=== PATIENT | female | born 1955 | race American Indian/Alaskan Native ===

== ENCOUNTER 2017-11-24 12:08 | Emergency (ER) | payer MEDICARE, MEDICAID, OTHER ==
[~2017-11-24] VITALS: Ht 152.4 cm; Wt 73.0 kg
[~2017-11-24 12:08] MED LIST: ASPI-611 PO; CLON-527 PO; DOXY150T3 PO; ERGO500014 PO; ESOM40CA PO; HYDR-565 PO; HYDR-569 PO; IBUP-1985 PO; INSU100C4 SQ; LANTUS SUBCUT; LEVO75TA PO; METF-436 PO; METO-292 PO; NAPR-1144 PO; ONDA4TAB12 PO; ONDA4TAB6 PO; PREG200C PO; QUET-1 PO; ROPI1TAB2 PO; SITA1TAB6 PO
[2017-11-24 14:54] LABS: BASOPHILS # (AUTO) 0.1 X10'3 (0-0.2); BASOPHILS % (AUTO) 0.8 % (0-1); EOSINOPHILS # (AUTO) 0.5 X10'3 (0-0.9); EOSINOPHILS % (AUTO) 5.1 % (0-6); HEMATOCRIT 40.9 % (35.0-45.0); HEMOGLOBIN 13.6 g/dl (12.0-16.0); LYMPHOCYTES # (AUTO) 3.2 X10'3 (1.1-4.8); LYMPHOCYTES % (AUTO) 34.1 % (21-51); MEAN CORPUSCULAR HEMOGLOBIN 29.6 PG (27.0-31.0); MEAN CORPUSCULAR HGB CONC 33.4 % (33.0-36.5); MEAN CORPUSCULAR VOLUME 88.6 FL (78-98); MEAN PLATELET VOLUME 9.8 FL (7.4-10.4); MONOCYTES # (AUTO) 0.6 X10'3 (0-0.9); MONOCYTES % (AUTO) 6.6 % (2-12); NEUTROPHILS % (AUTO) 53.4 % (42-75); PLATELET COUNT 255 X10'3 (140-440); RED BLOOD COUNT 4.62 X10'6 (4.20-5.60); RED CELL DISTRIBUTION WIDTH 14.8 % (11.5-14.5); WHITE BLOOD COUNT 9.3 X10'3 (4.5-11.0)
[2017-11-24 15:13] LABS: ALANINE AMINOTRANSFERASE 70 U/L (12-78); ALBUMIN/GLOBULIN RATIO 0.6 (1.1-1.5); ALKALINE PHOSPHATASE 454 IU/L (46-116); ANION GAP 7 (8-16); ASPARTATE AMINO TRANSFERASE 84 U/L (10-37); BILIRUBIN,TOTAL 0.4 MG/DL (0.1-1.0); BLOOD UREA NITROGEN 21 MG/DL (7-18); BUN/CREATININE RATIO 18.9 (6.6-38.0); CALCIUM 9.2 MG/DL (8.5-10.1); CHLORIDE 108 MMOL/L (99-107); CREATININE 1.11 MG/DL (0.40-0.90); GLUCOSE 70 MG/DL (70-104); POTASSIUM 4.9 MMOL/L (3.5-5.1); SODIUM 143 MMOL/L (135-145); TOTAL CARBON DIOXIDE 27.6 MMOL/L (24-32); TOTAL PROTEIN 7.9 G/DL (6.4-8.2); eGFR 50 ML/MIN
[2017-11-24 17:12] VITALS: BP 166/79
[2017-11-24] MEDS ORDERED: HYDROcodone/acetaminophen 10/325mg tab PO ONE (17:15)
[2017-11-24] MEDS ORDERED: MUPI1OIN8 BOTHNARES (17:21)
[2017-11-24 17:33] LABS: CLARITY,URINE CLEAR (Clear); COLOR,URINE YELLOW (Yellow); GLUCOSE, URINE 100 mg/dl (Neg); KETONES,URINE TRACE mg/dl (Neg); LEUKOCYTE ESTERASE ,URINE NEGATIVE (Neg); NITRITES, URINE NEGATIVE (Neg); OCCULT BLOOD,URINE NEGATIVE (Neg); PROTEIN,URINE 100 mg/dl (Neg)
[2017-11-24 17:34] LABS: UA COLLECTION TYPE CLN CATCH MIDSTREAM
[2017-11-24 17:54] LABS: BACTERIA,URINE FEW /HPF (Neg); HYALINE CASTS 0-3 /LPF (NEGATIVE); MUCUS STRANDS MODERATE /LPF (Neg); RBC,URINE 0-2 /HPF (0-2); SQUAMOUS EPITHELIAL CELL,UR MODERATE /LPF (FEW); WBC,URINE 0-4 /HPF (0-4); YEAST FEW /HPF (NEGATIVE)
== END 2017-11-24 18:05 | disposition home or self-care (01) ==
LOC: ER 12:08
DX: L02.215 Cutaneous abscess of perineum (principal); E11.42 Type 2 diabetes mellitus with diabetic polyneuropathy; G89.29 Other chronic pain; Z86.14 Personal history of Methicillin resistant Staphylococcus aureus infection; E78.00 Pure hypercholesterolemia, unspecified; K21.9 Gastro-esophageal reflux disease without esophagitis; Z90.49 Acquired absence of other specified parts of digestive tract; Z79.84 Long term (current) use of oral hypoglycemic drugs; Z79.4 Long term (current) use of insulin; Z79.899 Other long term (current) drug therapy; Z88.5 Allergy status to narcotic agent; Z88.8 Allergy status to other drugs, medicaments and biological substances; Z60.2 Problems related to living alone; Z56.0 Unemployment, unspecified
CPT/HCPCS: 36415; 56405; 73660; 80053; 81001; 82948; 85025; 99285

== ENCOUNTER 2018-01-17 15:15 | Observation (INO) | payer MEDICARE, MEDICAID, OTHER ==
[~2018-01-17] VITALS: Ht 154.9 cm; Wt 75.0 kg
[~2018-01-17 15:15] MED LIST changes: +MUPI1OIN8 BOTHNARES
[2018-01-17 15:41] LABS: BASOPHILS % (AUTO) 0.4 % (0-1); EOSINOPHILS # (AUTO) 0.4 X10'3 (0-0.9); EOSINOPHILS % (AUTO) 4.5 % (0-6); HEMATOCRIT 42.4 % (35.0-45.0); LYMPHOCYTES # (AUTO) 2.8 X10'3 (1.1-4.8); LYMPHOCYTES % (AUTO) 32.6 % (21-51); MEAN CORPUSCULAR HEMOGLOBIN 29.6 PG (27.0-31.0); MEAN CORPUSCULAR VOLUME 89.7 FL (78-98); MEAN PLATELET VOLUME 9.4 FL (7.4-10.4); MONOCYTES # (AUTO) 0.5 X10'3 (0-0.9); MONOCYTES % (AUTO) 5.9 % (2-12); NEUTROPHILS # (AUTO) 4.8 X10'3 (1.8-7.7); NEUTROPHILS % (AUTO) 56.6 % (42-75); PLATELET COUNT 220 X10'3 (140-440); RED BLOOD COUNT 4.73 X10'6 (4.20-5.60); RED CELL DISTRIBUTION WIDTH 14.4 % (11.5-14.5); WHITE BLOOD COUNT 8.5 X10'3 (4.5-11.0)
[2018-01-17 15:52] LABS: INR 0.9 INR; PARTIAL THROMBOPLASTIN TIME 27 SECONDS (22-32); PROTHROMBIN TIME 9.8 SECONDS (9.0-12.0)
[2018-01-17 16:02] LABS: ALANINE AMINOTRANSFERASE 62 U/L (12-78); BLOOD UREA NITROGEN 12 MG/DL (7-18); BUN/CREATININE RATIO 12.1 (6.6-38.0); CALCIUM 8.7 MG/DL (8.5-10.1); CREATININE 0.99 MG/DL (0.40-0.90); GLUCOSE 111 MG/DL (70-104); TROPONIN I < 0.04 NG/ML (0.0-0.05); eGFR 57 ML/MIN
[2018-01-17 16:03] LABS: ALBUMIN/GLOBULIN RATIO 0.7 (1.1-1.5); ALKALINE PHOSPHATASE 383 IU/L (46-116); ANION GAP 10 (8-16); ASPARTATE AMINO TRANSFERASE 78 U/L (10-37); BILIRUBIN,TOTAL 0.4 MG/DL (0.1-1.0); CHLORIDE 104 MMOL/L (99-107); SODIUM 140 MMOL/L (135-145); TOTAL CARBON DIOXIDE 25.8 MMOL/L (24-32); TOTAL PROTEIN 7.6 G/DL (6.4-8.2)
[2018-01-17] MEDS ORDERED: ondansetron/PF 4mg/2ml inj IV PRN (17:55)
[2018-01-17] MEDS ORDERED: aspirin 81mg tab.chew PO SCH (17:55)
[2018-01-17] MEDS ORDERED: aspirin 81mg tab.chew PO ONE (17:55)
[2018-01-17] MEDS ORDERED: bisacodyl 10mg suppository rectal RC PRN (17:55)
[2018-01-17 18:28] LABS: CHOL/HDL RATIO 6.3 (0.00-4.99); CHOLESTEROL 250 MG/DL (0-200); HDL CHOLESTEROL 40 MG/DL (35-60); LDL CHOLESTEROL 159 MG/DL (50-100); TRIGLYCERIDES 235 MG/DL (20-135)
[2018-01-17] MEDS: sodium chloride 0.45% 1,000 ML IV SCH (18:39)
[2018-01-17] MEDS: HYDROcodone/acetaminophen 5mg/325mg tablet PO PRN (19:51)
[2018-01-17] MEDS: docusate sod 100mg capsule PO SCH (20:11)
[2018-01-17] MEDS ORDERED: glucagon, human recombinant 1mg kit SUBCUT PRN (20:35)
[2018-01-17] MEDS ORDERED: dextrose 50%-water 50ml dispensing syringe IV PRN ×2 (20:35)
[2018-01-17] MEDS ORDERED: insulin Lispro (HumaLOG) vial - multi-dose SQ SCH (20:35)
[2018-01-17] MEDS ORDERED: dextrose ORAL solution 15 GM/59 ML bottle PO PRN ×2 (20:35)
[2018-01-17] MEDS ORDERED: MESSAGE TO PHARMACY PO ONE (20:35)
[2018-01-17] MEDS ORDERED: iohexol 350MG/ML 100ml bottle IV ONE (20:50)
[2018-01-17 21:22] VITALS: BP 160/79
[2018-01-17 22:00] VITALS: BP 160/79
[2018-01-17] MEDS ORDERED: ROPINIRole 1mg tablet PO SCH (23:10)
[2018-01-17] MEDS ORDERED: pregabalin 75mg capsule PO SCH (23:15)
[2018-01-17] MEDS ORDERED: quetiapine 100mg tablet PO SCH (23:15)
[2018-01-18 02:00] VITALS: BP 133/56
[2018-01-18] MEDS: HYDROcodone/acetaminophen 5mg/325mg tablet PO PRN (02:15)
[2018-01-18 06:00] VITALS: BP 101/56
[2018-01-18 06:14] LABS: ALANINE AMINOTRANSFERASE 57 U/L (12-78); ALBUMIN 2.7 G/DL (3.4-5.0); ALBUMIN/GLOBULIN RATIO 0.6 (1.1-1.5); ALKALINE PHOSPHATASE 337 IU/L (46-116); ANION GAP 4 (8-16); ASPARTATE AMINO TRANSFERASE 62 U/L (10-37); BILIRUBIN,TOTAL 0.3 MG/DL (0.1-1.0); BLOOD UREA NITROGEN 14 MG/DL (7-18); BUN/CREATININE RATIO 13.5 (6.6-38.0); CHLORIDE 106 MMOL/L (99-107); CREATININE 1.04 MG/DL (0.40-0.90); GLUCOSE 51 MG/DL (70-104); POTASSIUM 4.1 MMOL/L (3.5-5.1); SODIUM 141 MMOL/L (135-145); TOTAL CARBON DIOXIDE 31.3 MMOL/L (24-32); eGFR 54 ML/MIN
[2018-01-18 06:21] LABS: BASOPHILS % (AUTO) 0.6 % (0-1); EOSINOPHILS # (AUTO) 0.5 X10'3 (0-0.9); EOSINOPHILS % (AUTO) 5.9 % (0-6); HEMATOCRIT 38.8 % (35.0-45.0); HEMOGLOBIN 12.9 g/dl (12.0-16.0); LYMPHOCYTES # (AUTO) 3.4 X10'3 (1.1-4.8); LYMPHOCYTES % (AUTO) 42.1 % (21-51); MEAN CORPUSCULAR HGB CONC 33.3 % (33.0-36.5); MEAN PLATELET VOLUME 10.1 FL (7.4-10.4); MONOCYTES # (AUTO) 0.6 X10'3 (0-0.9); NEUTROPHILS # (AUTO) 3.6 X10'3 (1.8-7.7); NEUTROPHILS % (AUTO) 44.4 % (42-75); PLATELET COUNT 208 X10'3 (140-440); RED CELL DISTRIBUTION WIDTH 14.8 % (11.5-14.5); WHITE BLOOD COUNT 8.2 X10'3 (4.5-11.0)
[2018-01-18] MEDS: docusate sod 100mg capsule PO SCH (07:28)
[2018-01-18] MEDS ORDERED: aspirin 81mg tablet.DR PO SCH (08:00)
[2018-01-18] MEDS ORDERED: atorvastatin 20mg tablet PO SCH (08:00)
[2018-01-18] MEDS ORDERED: LANTUS SQ (08:39)
[2018-01-18] MEDS ORDERED: PREG150C PO (08:45)
[2018-01-18] MEDS ORDERED: DULA1.5P SQ (08:45)
[2018-01-18] MEDS ORDERED: DAPA10TA PO (08:48)
[2018-01-18 10:00] VITALS: BP 125/33
[2018-01-18] MEDS ORDERED: iohexol 350MG/ML 100ml bottle IV ONE (10:30)
[2018-01-18] MEDS: sodium chloride 0.45% 1,000 ML IV SCH (13:55)
== END 2018-01-18 14:15 | disposition home or self-care (01) ==
LOC: ER 15:16 → ED HOLD 17:55 → EDBEDREQSVC 19:09 → ORTHO 4S 21:15
PROVIDERS: ADMIT Emergency Medicine; ATTEND Emergency Medicine
DX: R20.0 Anesthesia of skin (principal); R29.810 Facial weakness; F41.9 Anxiety disorder, unspecified; E11.42 Type 2 diabetes mellitus with diabetic polyneuropathy; F32.9 Major depressive disorder, single episode, unspecified; E03.9 Hypothyroidism, unspecified; M54.9 Dorsalgia, unspecified; G89.29 Other chronic pain; E78.00 Pure hypercholesterolemia, unspecified; E78.5 Hyperlipidemia, unspecified; I25.2 Old myocardial infarction; I65.23 Occlusion and stenosis of bilateral carotid arteries; K21.9 Gastro-esophageal reflux disease without esophagitis; Z79.4 Long term (current) use of insulin; Z86.14 Personal history of Methicillin resistant Staphylococcus aureus infection; Z86.73 Personal history of transient ischemic attack (TIA), and cerebral infarction without residual deficits; Z90.49 Acquired absence of other specified parts of digestive tract
CPT/HCPCS: 36415; 70450; 70496; 70498; 70551; 71045; 80053; 80061; 82948; 83036; 84484; 85025; 85610; 85730; 87070; 92616; 93005; 93306; 93880; 96360; 96361; 97116; 97161; 99285; A6212; G0378; J7030; Q9967

== ENCOUNTER 2018-11-08 11:44 | Emergency (ER) | payer MEDICARE, MEDICAID, OTHER ==
[~2018-11-08] VITALS: Ht 154.9 cm; Wt 78.6 kg
[~2018-11-08 11:44] MED LIST changes: +DAPA10TA PO; -DOXY150T3 PO; +DULA1.5P SQ; -ERGO500014 PO; -ESOM40CA PO; +HYDR-4353 PO; -HYDR-565 PO; -HYDR-569 PO; -INSU100C4 SQ; +LANTUS SQ; -LANTUS SUBCUT; -METO-292 PO; -MUPI1OIN8 BOTHNARES; -NAPR-1144 PO; -ONDA4TAB12 PO; -ONDA4TAB6 PO; +PREG150C PO; -PREG200C PO
[2018-11-08 12:34] LABS: BASOPHILS # (AUTO) 0.1 X10'3 (0-0.2); BASOPHILS % (AUTO) 0.8 % (0-1); EOSINOPHILS # (AUTO) 0.2 X10'3 (0-0.9); HEMATOCRIT 40.4 % (35.0-45.0); HEMOGLOBIN 13.3 g/dl (12.0-16.0); LYMPHOCYTES # (AUTO) 2.5 X10'3 (1.1-4.8); LYMPHOCYTES % (AUTO) 33.7 % (21-51); MEAN CORPUSCULAR HEMOGLOBIN 29.7 PG (27.0-31.0); MEAN CORPUSCULAR VOLUME 89.8 FL (78-98); MEAN PLATELET VOLUME 9.5 FL (7.4-10.4); MONOCYTES # (AUTO) 0.5 X10'3 (0-0.9); MONOCYTES % (AUTO) 6.4 % (2-12); NEUTROPHILS # (AUTO) 4.2 X10'3 (1.8-7.7); NEUTROPHILS % (AUTO) 56.1 % (42-75); PLATELET COUNT 225 X10'3 (140-440); RED CELL DISTRIBUTION WIDTH 15.5 % (11.5-14.5); WHITE BLOOD COUNT 7.5 X10'3 (4.5-11.0)
[2018-11-08 12:54] LABS: ALANINE AMINOTRANSFERASE 69 U/L (12-78); ALBUMIN 2.7 G/DL (3.4-5.0); ALBUMIN/GLOBULIN RATIO 0.6 (1.1-1.5); ALKALINE PHOSPHATASE 441 IU/L (46-116); ANION GAP 6 (8-16); ASPARTATE AMINO TRANSFERASE 92 U/L (10-37); BILIRUBIN,TOTAL 0.3 MG/DL (0.1-1.0); BLOOD UREA NITROGEN 21 MG/DL (7-18); BUN/CREATININE RATIO 19.1 (6.6-38.0); CALCIUM 8.4 MG/DL (8.5-10.1); CHLORIDE 107 MMOL/L (99-107); GLUCOSE 63 MG/DL (70-104); POTASSIUM 4.6 MMOL/L (3.5-5.1); SODIUM 140 MMOL/L (135-145); TOTAL CARBON DIOXIDE 27.5 MMOL/L (24-32); TOTAL PROTEIN 7.3 G/DL (6.4-8.2); eGFR 50 ML/MIN
[2018-11-08] MEDS ORDERED: diphenhydrAMINE 50 mg/ml inj IV ONE (13:10)
[2018-11-08] MEDS ORDERED: normal saline 1000ML IV soln IVB ONE (13:10)
[2018-11-08] MEDS ORDERED: metoclopramide 5 mg/ml inj IV ONE (13:10)
[2018-11-08] MEDS ORDERED: dextrose 50%-water 50ml dispensing syringe IV ONE (13:35)
[2018-11-08 15:39] LABS: CLARITY,URINE CLEAR (Clear); COLOR,URINE YELLOW (Yellow); GLUCOSE, URINE >=1000 mg/dl (Neg); KETONES,URINE NEGATIVE (Neg); LEUKOCYTE ESTERASE ,URINE NEGATIVE (Neg); NITRITES, URINE NEGATIVE (Neg); OCCULT BLOOD,URINE SMALL (Neg); PH,URINE 6.5 (4.8-8.0); PROTEIN,URINE >=300 mg/dl (Neg)
[2018-11-08 15:40] LABS: UA COLLECTION TYPE CLN CATCH MIDSTREAM
[2018-11-08 15:46] LABS: SQUAMOUS EPITHELIAL CELL,UR FEW /LPF (FEW)
[2018-11-08 15:47] LABS: BACTERIA,URINE 1+ /HPF (Neg); WBC,URINE 0-4 /HPF (0-4)
[2018-11-08] MEDS ORDERED: ONDA8TAB6 PO (16:31)
[2018-11-08 16:37] VITALS: BP 161/70
[2018-11-09] MEDS ORDERED: GABA600T13 PO (19:00)
[2018-11-09] MEDS ORDERED: PANT-47 PO (19:00)
[2018-11-09] MEDS ORDERED: LEVO25TA2 PO (19:14)
[2018-11-09] MEDS ORDERED: ROPI1TAB4 PO (19:14)
[2018-11-09] MEDS ORDERED: CYAN100097 PO (19:14)
[2018-11-09] MEDS ORDERED: VIT1TABL91 PO (19:14)
== END 2018-11-08 16:46 | disposition home or self-care (01) ==
LOC: ER 11:44
DX: E11.649 Type 2 diabetes mellitus with hypoglycemia without coma (principal); R11.2 Nausea with vomiting, unspecified; K74.60 Unspecified cirrhosis of liver; E11.42 Type 2 diabetes mellitus with diabetic polyneuropathy; E78.00 Pure hypercholesterolemia, unspecified; K21.9 Gastro-esophageal reflux disease without esophagitis; G89.29 Other chronic pain; Z86.14 Personal history of Methicillin resistant Staphylococcus aureus infection; Z90.49 Acquired absence of other specified parts of digestive tract; Z98.890 Other specified postprocedural states; Z60.2 Problems related to living alone; Z56.0 Unemployment, unspecified; Z88.5 Allergy status to narcotic agent; Z88.8 Allergy status to other drugs, medicaments and biological substances; Z79.82 Long term (current) use of aspirin; Z79.899 Other long term (current) drug therapy
CPT/HCPCS: 36415; 71045; 74176; 80053; 81001; 82948; 85025; 93005; 96374; 96375; 99284; J1200; J2765; J7030

== ENCOUNTER 2018-11-09 15:00 | Emergency (ER) | payer MEDICARE, MEDICAID, OTHER ==
[~2018-11-09] VITALS: Ht 154.9 cm; Wt 81.0 kg
[~2018-11-09 15:00] MED LIST changes: +ONDA8TAB6 PO
[2018-11-09 16:40] LABS: BASOPHILS # (AUTO) 0.1 X10'3 (0-0.2); EOSINOPHILS # (AUTO) 0.3 X10'3 (0-0.9); EOSINOPHILS % (AUTO) 4.4 % (0-6); HEMATOCRIT 37.5 % (35.0-45.0); HEMOGLOBIN 12.3 g/dl (12.0-16.0); LYMPHOCYTES # (AUTO) 1.9 X10'3 (1.1-4.8); LYMPHOCYTES % (AUTO) 28.8 % (21-51); MEAN CORPUSCULAR HEMOGLOBIN 29.5 PG (27.0-31.0); MEAN CORPUSCULAR HGB CONC 32.8 g/dL (33.0-36.5); MEAN CORPUSCULAR VOLUME 89.8 FL (78-98); MEAN PLATELET VOLUME 9.4 FL (7.4-10.4); MONOCYTES # (AUTO) 0.6 X10'3 (0-0.9); MONOCYTES % (AUTO) 9.1 % (2-12); NEUTROPHILS # (AUTO) 3.8 X10'3 (1.8-7.7); NEUTROPHILS % (AUTO) 56.7 % (42-75); PLATELET COUNT 193 X10'3 (140-440); RED BLOOD COUNT 4.18 X10'6 (4.20-5.60); RED CELL DISTRIBUTION WIDTH 15.1 % (11.5-14.5); WHITE BLOOD COUNT 6.7 X10'3 (4.5-11.0)
--- NOTE | 2018-11-09 16:46 | NUR ---
PT REPORTS HOME ACCUCHECK 106 APPROX 45 MIN AGO, ACCUCHECK NOW 87, CHECKED PT BG PT STATES SHE HAS NOT HAD ANY INSULIN X 5 DAYS AND BG HAVING BEEN LOW, PER DR BEE DEL CID TO FEED PT, GAVEPT YOGURT, STRING CHEESE AND WATER. PT SITTING UP IN BED EATING NOW.
[2018-11-09 16:53] LABS: ALANINE AMINOTRANSFERASE 70 U/L (12-78); ALBUMIN 2.6 G/DL (3.4-5.0); ALBUMIN/GLOBULIN RATIO 0.6 (1.1-1.5); ALKALINE PHOSPHATASE 410 IU/L (46-116); ANION GAP 3 (8-16); ASPARTATE AMINO TRANSFERASE 90 U/L (10-37); BILIRUBIN,TOTAL 0.3 MG/DL (0.1-1.0); BLOOD UREA NITROGEN 24 MG/DL (7-18); BUN/CREATININE RATIO 19.8 (6.6-38.0); CALCIUM 8.6 MG/DL (8.5-10.1); CHLORIDE 108 MMOL/L (99-107); CREATININE 1.21 MG/DL (0.40-0.90); GLUCOSE 86 MG/DL (70-104); POTASSIUM 5.2 MMOL/L (3.5-5.1); SODIUM 138 MMOL/L (135-145); eGFR 45 ML/MIN
[2018-11-09 16:59] LABS: D-DIMER 2.21 MG/L FEU (0-0.50)
[2018-11-09 17:00] LABS: CLARITY,URINE CLEAR (Clear); COLOR,URINE YELLOW (Yellow); GLUCOSE, URINE NEGATIVE (Neg); KETONES,URINE NEGATIVE (Neg); LEUKOCYTE ESTERASE ,URINE NEGATIVE (Neg); NITRITES, URINE NEGATIVE (Neg); OCCULT BLOOD,URINE TRACE-INTACT (Neg); PROTEIN,URINE 100 mg/dl (Neg)
[2018-11-09 17:03] LABS: UA COLLECTION TYPE CLN CATCH MIDSTREAM
[2018-11-09 17:05] LABS: MAGNESIUM 1.9 MG/DL (1.5-2.4)
[2018-11-09 17:18] LABS: SQUAMOUS EPITHELIAL CELL,UR FEW /LPF (FEW)
[2018-11-09 17:19] LABS: BACTERIA,URINE NONE SEEN /HPF (Neg); RBC,URINE 0-2 /HPF (0-2); WBC,URINE NONE SEEN /HPF (0-4)
[2018-11-09] MEDS ORDERED: iohexol 350MG/ML 100ml bottle IV ONE (18:41)
[2018-11-09] MEDS ORDERED: GABA600T13 PO (19:00)
[2018-11-09] MEDS ORDERED: PANT-47 PO (19:00)
[2018-11-09] MEDS ORDERED: CYAN100097 PO (19:14)
[2018-11-09] MEDS ORDERED: ROPI1TAB4 PO (19:14)
[2018-11-09] MEDS ORDERED: LEVO25TA2 PO (19:14)
[2018-11-09] MEDS ORDERED: VIT1TABL91 PO (19:14)
[2018-11-09] MEDS ORDERED: MESSAGE TO NURSING PO NR (20:04)
[2018-11-09] MEDS ORDERED: normal saline 1000ml 1,000 ML IV ONE (20:15)
--- NOTE | 2018-11-09 20:34 | NUR ---
RELIEVING RN FOR BREAK, PT AMB WITH STEADY GAIT TO RESTROOM
--- NOTE | 2018-11-09 20:43 | NUR ---
PT C/O FEELING "SHAKY" AND ASKED FOR BLOOD SUGAR TO BE CHECKED, ACCU CHECK 58
[2018-11-09] MEDS ORDERED: dextrose 50%-water 50ml dispensing syringe IV ONE (20:45)
[2018-11-09] MEDS ORDERED: ondansetron/PF 4mg/2ml inj IV ONE (20:45)
--- NOTE | 2018-11-09 20:46 | NUR ---
DR GAMBOA AWARE, REPORT TO DEVORA ALVAREZ
[2018-11-09 22:49] VITALS: BP 165/73
[2018-11-15] MEDS ORDERED: ONDA4TAB6 PO (08:55)
[2018-11-15] MEDS ORDERED: DICL100G15 TOP (08:55)
[2018-11-15] MEDS ORDERED: LIOT5TAB14 PO (08:55)
[2018-11-15] MEDS ORDERED: CHOL500050 PO (08:55)
[2018-11-15] MEDS ORDERED: LIDO700A32 TOP (08:55)
== END 2018-11-09 22:57 | disposition home or self-care (01) ==
LOC: ER 15:01
DX: R07.89 Other chest pain (principal); R11.2 Nausea with vomiting, unspecified; E78.00 Pure hypercholesterolemia, unspecified; K21.9 Gastro-esophageal reflux disease without esophagitis; G89.29 Other chronic pain; E11.42 Type 2 diabetes mellitus with diabetic polyneuropathy; Z86.14 Personal history of Methicillin resistant Staphylococcus aureus infection; Z90.49 Acquired absence of other specified parts of digestive tract; Z98.890 Other specified postprocedural states; Z56.0 Unemployment, unspecified; Z88.5 Allergy status to narcotic agent; Z88.8 Allergy status to other drugs, medicaments and biological substances; Z79.82 Long term (current) use of aspirin; Z79.899 Other long term (current) drug therapy
CPT/HCPCS: 36415; 71045; 71275; 80053; 81001; 82948; 83735; 83880; 84484; 85025; 85379; 93005; 96361; 96374; 96375; 99284; J2405; J7030; Q9967

== ENCOUNTER 2019-04-09 16:00 | Emergency (ER) | payer MEDICARE, MEDICAID, OTHER ==
[~2019-04-09] VITALS: Ht 154.9 cm; Wt 75.4 kg
[~2019-04-09 16:00] MED LIST changes: +CHOL500050 PO; +CYAN100097 PO; +DICL100G15 TOP; +GABA600T13 PO; -IBUP-1985 PO; +LIDO700A32 TOP; +LIOT5TAB14 PO; +ONDA4TAB6 PO; -ONDA8TAB6 PO; +PANT-47 PO
[2019-04-09 16:06] VITALS: BP 188/91
[2019-04-09] MEDS ORDERED: SULF1TAB49 PO (17:19)
== END 2019-04-09 17:26 | disposition home or self-care (01) ==
LOC: ER 16:00
DX: S93.401A Sprain of unspecified ligament of right ankle, initial encounter (principal); S93.501A Unspecified sprain of right great toe, initial encounter; S99.921A Unspecified injury of right foot, initial encounter; L03.031 Cellulitis of right toe; K21.9 Gastro-esophageal reflux disease without esophagitis; G89.29 Other chronic pain; E11.42 Type 2 diabetes mellitus with diabetic polyneuropathy; F32.9 Major depressive disorder, single episode, unspecified; E78.00 Pure hypercholesterolemia, unspecified; I25.2 Old myocardial infarction; Z88.6 Allergy status to analgesic agent; Z88.8 Allergy status to other drugs, medicaments and biological substances; Z79.899 Other long term (current) drug therapy; Z79.82 Long term (current) use of aspirin; Z86.14 Personal history of Methicillin resistant Staphylococcus aureus infection; Z90.49 Acquired absence of other specified parts of digestive tract; Z98.890 Other specified postprocedural states; Z86.73 Personal history of transient ischemic attack (TIA), and cerebral infarction without residual deficits; Z60.2 Problems related to living alone; Z56.0 Unemployment, unspecified; W22.01XA Walked into wall, initial encounter; W17.89XA Other fall from one level to another, initial encounter; Y93.89 Activity, other specified; Y92.89 Other specified places as the place of occurrence of the external cause; Y99.8 Other external cause status
CPT/HCPCS: 73610; 73630; 99283

== ENCOUNTER 2019-04-19 12:55 | Emergency (ER) | payer MEDICARE, MEDICAID, OTHER ==
[~2019-04-19] VITALS: Ht 154.9 cm; Wt 77.7 kg
[2019-04-19 13:39] LABS: BASOPHILS % (AUTO) 0.7 % (0-1); EOSINOPHILS # (AUTO) 0.2 X10'3 (0-0.9); EOSINOPHILS % (AUTO) 3.1 % (0-6); HEMATOCRIT 40.4 % (35.0-45.0); HEMOGLOBIN 13.2 g/dl (12.0-16.0); LYMPHOCYTES # (AUTO) 2.4 X10'3 (1.1-4.8); LYMPHOCYTES % (AUTO) 35.4 % (21-51); MEAN CORPUSCULAR HGB CONC 32.5 g/dL (33.0-36.5); MEAN PLATELET VOLUME 9.3 FL (7.4-10.4); MONOCYTES # (AUTO) 0.3 X10'3 (0-0.9); MONOCYTES % (AUTO) 4.9 % (2-12); NEUTROPHILS # (AUTO) 3.8 X10'3 (1.8-7.7); NEUTROPHILS % (AUTO) 55.9 % (42-75); PLATELET COUNT 221 X10'3 (140-440); RED BLOOD COUNT 4.54 X10'6 (4.20-5.60); WHITE BLOOD COUNT 6.8 X10'3 (4.5-11.0)
[2019-04-19 13:53] LABS: ALANINE AMINOTRANSFERASE 40 U/L (12-78); ALBUMIN 2.8 G/DL (3.4-5.0); ALBUMIN/GLOBULIN RATIO 0.6 (1.1-1.5); ALKALINE PHOSPHATASE 422 IU/L (46-116); ANION GAP 9 (8-16); ASPARTATE AMINO TRANSFERASE 58 U/L (10-37); BILIRUBIN,TOTAL 0.3 MG/DL (0.1-1.0); BLOOD UREA NITROGEN 26 MG/DL (7-18); BUN/CREATININE RATIO 14.6 (6.6-38.0); CALCIUM 8.6 MG/DL (8.5-10.1); CHLORIDE 109 MMOL/L (99-107); CREATININE 1.78 MG/DL (0.40-0.90); GLUCOSE 75 MG/DL (70-104); POTASSIUM 5.2 MMOL/L (3.5-5.1); SODIUM 142 MMOL/L (135-145); TOTAL CARBON DIOXIDE 24.5 MMOL/L (24-32); TOTAL PROTEIN 7.6 G/DL (6.4-8.2); eGFR 29 ML/MIN
[2019-04-19 13:56] LABS: PARTIAL THROMBOPLASTIN TIME 27 SECONDS (22-32)
--- NOTE | 2019-04-19 15:18 | NUR ---
PT REPORTS SHE IS DIABETIC AND FEELS LIKE HER BS IS LOW. ACCU-CHECK 61. ADVISED AND OKAYED FOOD AND JUICE WHICH WAS JUST GIVEN.
[2019-04-19] MEDS ORDERED: normal saline 1000ML IV soln IVB ONE (15:20)
[2019-04-19 15:46] LABS: C-REACTIVE PROTEIN 0.58 MG/DL (0.0-0.5)
[2019-04-19] MEDS ORDERED: cephalexin 500mg capsule PO ONE (16:05)
[2019-04-19] MEDS ORDERED: CEPH500C5 PO (16:09)
[2019-04-19] MEDS ORDERED: HYDR-4353 PO (16:14)
[2019-04-19] MEDS ORDERED: HYDROcodone/acetaminophen 10/325mg tab PO ONE (16:15)
[2019-04-19] MEDS ORDERED: OXYC-150 PO (16:41)
[2019-04-19 16:59] VITALS: BP 169/93
== END 2019-04-19 17:01 | disposition home or self-care (01) ==
LOC: ER 12:56
DX: E11.621 Type 2 diabetes mellitus with foot ulcer (principal); L97.518 Non-pressure chronic ulcer of other part of right foot with other specified severity; E78.00 Pure hypercholesterolemia, unspecified; K21.9 Gastro-esophageal reflux disease without esophagitis; G89.29 Other chronic pain; E11.42 Type 2 diabetes mellitus with diabetic polyneuropathy; Z86.14 Personal history of Methicillin resistant Staphylococcus aureus infection; Z90.49 Acquired absence of other specified parts of digestive tract; Z98.890 Other specified postprocedural states; Z56.0 Unemployment, unspecified; Z88.5 Allergy status to narcotic agent; Z88.8 Allergy status to other drugs, medicaments and biological substances; Z79.82 Long term (current) use of aspirin; Z79.899 Other long term (current) drug therapy
CPT/HCPCS: 36415; 71045; 73660; 80053; 82948; 83605; 84145; 85025; 85610; 85651; 85730; 86140; 87040; 99284

== ENCOUNTER 2019-05-21 15:02 | Emergency (ER) | payer MEDICARE, MEDICAID, OTHER ==
[~2019-05-21] VITALS: Ht 154.9 cm; Wt 80.0 kg
[~2019-05-21 15:02] MED LIST changes: +CEPH500C5 PO; +OXYC-150 PO
[2019-05-21 15:35] LABS: BASOPHILS # (AUTO) 0.1 X10'3 (0-0.2); BASOPHILS % (AUTO) 0.9 % (0-1); EOSINOPHILS # (AUTO) 0.2 X10'3 (0-0.9); EOSINOPHILS % (AUTO) 3.4 % (0-6); HEMATOCRIT 39.1 % (35.0-45.0); HEMOGLOBIN 12.9 g/dl (12.0-16.0); LYMPHOCYTES # (AUTO) 2.2 X10'3 (1.1-4.8); LYMPHOCYTES % (AUTO) 34.2 % (21-51); MEAN CORPUSCULAR HEMOGLOBIN 28.9 PG (27.0-31.0); MEAN CORPUSCULAR VOLUME 87.5 FL (78-98); MEAN PLATELET VOLUME 8.8 FL (7.4-10.4); MONOCYTES # (AUTO) 0.3 X10'3 (0-0.9); MONOCYTES % (AUTO) 5.1 % (2-12); NEUTROPHILS # (AUTO) 3.6 X10'3 (1.8-7.7); NEUTROPHILS % (AUTO) 56.4 % (42-75); PLATELET COUNT 244 X10'3 (140-440); RED BLOOD COUNT 4.47 X10'6 (4.20-5.60); WHITE BLOOD COUNT 6.4 X10'3 (4.5-11.0)
[2019-05-21 15:50] LABS: ALANINE AMINOTRANSFERASE 29 U/L (12-78); ALBUMIN 2.4 G/DL (3.4-5.0); ALBUMIN/GLOBULIN RATIO 0.6 (1.1-1.5); ALKALINE PHOSPHATASE 356 IU/L (46-116); ANION GAP 5 (8-16); ASPARTATE AMINO TRANSFERASE 41 U/L (10-37); BILIRUBIN,TOTAL 0.2 MG/DL (0.1-1.0); BLOOD UREA NITROGEN 25 MG/DL (7-18); BUN/CREATININE RATIO 16.8 (6.6-38.0); CALCIUM 8.1 MG/DL (8.5-10.1); CHLORIDE 112 MMOL/L (99-107); CREATININE 1.49 MG/DL (0.40-0.90); GLUCOSE 106 MG/DL (70-104); LIPASE 119 U/L (73-393); POTASSIUM 4.2 MMOL/L (3.5-5.1); SODIUM 144 MMOL/L (135-145); TOTAL CARBON DIOXIDE 26.7 MMOL/L (24-32); TOTAL PROTEIN 6.7 G/DL (6.4-8.2); eGFR 36 ML/MIN
[2019-05-21] MEDS ORDERED: furosemide 20MG tablet PO ONE (17:05)
[2019-05-21 17:22] LABS: CLARITY,URINE TURBID (Clear); COLOR,URINE YELLOW (Yellow); GLUCOSE, URINE 100 mg/dl (Neg); KETONES,URINE NEGATIVE (Neg); LEUKOCYTE ESTERASE ,URINE NEGATIVE (Neg); NITRITES, URINE NEGATIVE (Neg); OCCULT BLOOD,URINE SMALL (Neg); PROTEIN,URINE >=300 mg/dl (Neg); UROBILINOGEN,URINE 0.2 E.U/dL (0.2-1.0)
[2019-05-21 17:27] LABS: UA COLLECTION TYPE CLN CATCH MIDSTREAM
[2019-05-21 17:36] LABS: AMORPHOUS URATES 4+
[2019-05-21 17:39] LABS: SQUAMOUS EPITHELIAL CELL,UR FEW /LPF (FEW); TRANSITIONAL EPI CELLS,URINE MODERATE /HPF
[2019-05-21 17:40] LABS: WBC,URINE 0-4 /HPF (0-4)
[2019-05-21 17:42] LABS: FINE GRANULAR CAST 0-3 /LPF (NEGATIVE)
[2019-05-21 17:44] LABS: BACTERIA,URINE NONE SEEN /HPF (Neg)
[2019-05-21] MEDS ORDERED: SPIR50TA PO (17:59)
[2019-05-21] MEDS ORDERED: traMADol 50MG tablet PO ONE (18:10)
[2019-05-21 18:41] VITALS: BP 167/109
== END 2019-05-21 18:43 | disposition home or self-care (01) ==
LOC: ER 15:03
DX: R18.8 Other ascites (principal); E86.0 Dehydration; K74.60 Unspecified cirrhosis of liver; R30.9 Painful micturition, unspecified; E11.43 Type 2 diabetes mellitus with diabetic autonomic (poly)neuropathy; E78.00 Pure hypercholesterolemia, unspecified; K21.9 Gastro-esophageal reflux disease without esophagitis; G89.29 Other chronic pain; F32.9 Major depressive disorder, single episode, unspecified; Z88.6 Allergy status to analgesic agent; Z88.8 Allergy status to other drugs, medicaments and biological substances; Z79.899 Other long term (current) drug therapy; Z79.82 Long term (current) use of aspirin; Z79.2 Long term (current) use of antibiotics; Z86.14 Personal history of Methicillin resistant Staphylococcus aureus infection; Z90.49 Acquired absence of other specified parts of digestive tract; Z98.890 Other specified postprocedural states; Z60.2 Problems related to living alone; Z56.0 Unemployment, unspecified
CPT/HCPCS: 36415; 80053; 81001; 82140; 83690; 85025; 85610; 99284

== ENCOUNTER 2019-05-24 13:42 | Inpatient (IN) | payer MEDICARE, MEDICAID, OTHER ==
[~2019-05-24] VITALS: Ht 154.9 cm; Wt 78.5 kg
[~2019-05-24 13:42] MED LIST changes: +SPIR50TA PO
[2019-05-24] MEDS ORDERED: tobramycin 40mg/ml inj IV SCH (14:20)
[2019-05-24] MEDS ORDERED: TOBRAMYCIN IV ONE (14:30)
[2019-05-24] MEDS ORDERED: NORMAL SALINE IV ONE (14:30)
--- NOTE | 2019-05-24 14:47 | NUR ---
XRAY IS FINISHED AND PT HAS IV ACCESS, PHARMACY DELIVERS THE ABX MEDICATION TO ROOM 11.
[2019-05-24 14:59] LABS: BASOPHILS % (AUTO) 0.7 % (0-1); EOSINOPHILS # (AUTO) 0.1 X10'3 (0-0.9); EOSINOPHILS % (AUTO) 1.6 % (0-6); HEMATOCRIT 34.5 % (35.0-45.0); HEMOGLOBIN 11.4 g/dl (12.0-16.0); LYMPHOCYTES # (AUTO) 1.6 X10'3 (1.1-4.8); LYMPHOCYTES % (AUTO) 29.7 % (21-51); MEAN CORPUSCULAR HEMOGLOBIN 29.1 PG (27.0-31.0); MEAN CORPUSCULAR HGB CONC 32.9 g/dL (33.0-36.5); MEAN CORPUSCULAR VOLUME 88.5 FL (78-98); MONOCYTES # (AUTO) 0.4 X10'3 (0-0.9); MONOCYTES % (AUTO) 7.5 % (2-12); NEUTROPHILS # (AUTO) 3.3 X10'3 (1.8-7.7); NEUTROPHILS % (AUTO) 60.5 % (42-75); PLATELET COUNT 194 X10'3 (140-440); RED CELL DISTRIBUTION WIDTH 15.5 % (11.5-14.5); WHITE BLOOD COUNT 5.5 X10'3 (4.5-11.0)
[2019-05-24 15:09] LABS: ALANINE AMINOTRANSFERASE 26 U/L (12-78); ALBUMIN 2.2 G/DL (3.4-5.0); ALBUMIN/GLOBULIN RATIO 0.6 (1.1-1.5); ALKALINE PHOSPHATASE 372 IU/L (46-116); ANION GAP 5 (8-16); ASPARTATE AMINO TRANSFERASE 36 U/L (10-37); BILIRUBIN,TOTAL 0.3 MG/DL (0.1-1.0); BLOOD UREA NITROGEN 25 MG/DL (7-18); BUN/CREATININE RATIO 15.5 (6.6-38.0); C-REACTIVE PROTEIN 0.74 MG/DL (0.0-0.5); CALCIUM 7.7 MG/DL (8.5-10.1); CHLORIDE 112 MMOL/L (99-107); CREATININE 1.61 MG/DL (0.40-0.90); GLUCOSE 148 MG/DL (70-104); POTASSIUM 3.8 MMOL/L (3.5-5.1); SODIUM 143 MMOL/L (135-145); TOTAL CARBON DIOXIDE 25.9 MMOL/L (24-32); TOTAL PROTEIN 6.1 G/DL (6.4-8.2); eGFR 33 ML/MIN
[2019-05-24] MEDS ORDERED: morphine 2 MG/ML inj. syringe IV PRN ×2 (16:00)
[2019-05-24] MEDS ORDERED: magnesium hydroxide 30ml (MOM) UD suspension PO PRN (16:00)
[2019-05-24] MEDS ORDERED: acetaminophen 325mg tablet PO PRN (16:00)
[2019-05-24] MEDS ORDERED: mag hydrox/Alum hydrox/simeth 30ml oral suspension PO PRN (16:00)
--- NOTE | 2019-05-24 16:17 | NUR ---
DR CARRIZALES IN TO EVAL PT FOR ADMIT.
[2019-05-24] MEDS ORDERED: QUET300T19 PO (16:20)
[2019-05-24] MEDS ORDERED: SPIR50TA5 PO (16:20)
[2019-05-24] MEDS ORDERED: LEVO75TA7 PO (16:20)
[2019-05-24] MEDS ORDERED: LIOT5TAB10 PO (16:20)
[2019-05-24] MEDS ORDERED: SITA1TAB6 PO (16:22)
[2019-05-24] MEDS: normal saline 1000ml 1,000 ML IV SCH (16:23)
[2019-05-24] MEDS ORDERED: OMEP-297 PO (16:24)
[2019-05-24] MEDS ORDERED: COLL30OI TP (16:31)
[2019-05-24] MEDS ORDERED: levoFLOXACIN 250mg tablet PO SCH (16:40)
--- NOTE | 2019-05-24 17:22 | NUR ---
SHEILA NURSE IN ROOM FOR ADMIT INFO
[2019-05-24 17:39] LABS: HEMOGLOBIN A1C 5.7 % (4.5-6.2)
--- NOTE | 2019-05-24 18:28 | NUR ---
VERBAL RECEIVED FROM DR. CARRIZALES FOR NORCO 10/325 Q4HR PRN PAIN.
--- NOTE | 2019-05-24 18:40 | NUR ---
PT HAS ROOM ASSIGNEMNT, ACCUCHECK 86, SHE REPORTS SHE IS HUNGRY. PT WITH STABLE VS. UP INDEPENDANTLY WITH STEADY GAIT, ABLE TO AMBULATE ON THE RIGHT FOOT, PRIMARILY ON HEEL. PT IS PLEASANT AND COOOPERATIVE.
--- NOTE | 2019-05-24 18:42 | NUR ---
Received report from Lisa ALVAREZ from ED. Patient came up to the floor via wheelchair. Call light placed within reach, bed locked and low. Patient requesting food and a pain pill.
[2019-05-24] MEDS: HYDROcodone/acetaminophen 10/325mg tab PO PRN (19:03)
[2019-05-24 19:10] VITALS: BP 159/96
[2019-05-24] MEDS: cefepime 2g/NS 100ml ADVANTAGE 100 ML IV SCH (20:12)
[2019-05-24] MEDS: pregabalin 75mg capsule PO SCH (20:17)
[2019-05-24] MEDS: heparin, porcine 5000 units/ml vial SQ SCH (20:22)
[2019-05-24] MEDS: ROPINIRole 1mg tablet PO SCH (20:23)
[2019-05-24] MEDS: QUEtiapine 25mg tablet PO SCH (20:38)
[2019-05-24] MEDS: clonazePAM 1mg tablet PO PRN (20:43)
[2019-05-24 22:00] VITALS: BP 135/69
[2019-05-25] MEDS ORDERED: piperacillin/tazo 3.375gm/50ml 50 ML IV SCH
[2019-05-25] MEDS: HYDROcodone/acetaminophen 10/325mg tab PO PRN ×5 (00:10→20:40)
[2019-05-25] MEDS: normal saline 1000ml 1,000 ML IV SCH ×2 (02:18→11:06)
[2019-05-25] MEDS: ondansetron/PF 4mg/2ml inj IV PRN (05:37)
[2019-05-25 06:10] VITALS: BP 141/77
[2019-05-25] MEDS ORDERED: levoFLOXACIN 750MG TABLET PO SCH ×2 (06:27)
--- NOTE | 2019-05-25 06:29 | NUR ---
Problems reprioritized. Patient report given, questions answered & plan of care reviewed with Angi ALVAREZ.
[2019-05-25 06:36] LABS: BASOPHILS % (AUTO) 0.7 % (0-1); EOSINOPHILS # (AUTO) 0.1 X10'3 (0-0.9); EOSINOPHILS % (AUTO) 1.4 % (0-6); HEMATOCRIT 33.3 % (35.0-45.0); LYMPHOCYTES # (AUTO) 0.3 X10'3 (1.1-4.8); MEAN CORPUSCULAR HEMOGLOBIN 29.1 PG (27.0-31.0); MEAN CORPUSCULAR HGB CONC 33.1 g/dL (33.0-36.5); MEAN CORPUSCULAR VOLUME 87.9 FL (78-98); MEAN PLATELET VOLUME 9.3 FL (7.4-10.4); MONOCYTES # (AUTO) 0.2 X10'3 (0-0.9); MONOCYTES % (AUTO) 4.6 % (2-12); NEUTROPHILS # (AUTO) 3.2 X10'3 (1.8-7.7); NEUTROPHILS % (AUTO) 85.3 % (42-75); PLATELET COUNT 170 X10'3 (140-440); RED BLOOD COUNT 3.78 X10'6 (4.20-5.60); RED CELL DISTRIBUTION WIDTH 15.6 % (11.5-14.5); WHITE BLOOD COUNT 3.8 X10'3 (4.5-11.0)
[2019-05-25 06:52] LABS: ALBUMIN 2.1 G/DL (3.4-5.0); ANION GAP 6 (8-16); BLOOD UREA NITROGEN 30 MG/DL (7-18); BUN/CREATININE RATIO 17.8 (6.6-38.0); CALCIUM 7.7 MG/DL (8.5-10.1); CHLORIDE 111 MMOL/L (99-107); CREATININE 1.69 MG/DL (0.40-0.90); GLUCOSE 150 MG/DL (70-104); POTASSIUM 4.1 MMOL/L (3.5-5.1); SODIUM 142 MMOL/L (135-145); TOTAL CARBON DIOXIDE 24.7 MMOL/L (24-32); eGFR 31 ML/MIN
[2019-05-25] MEDS: (Dapagliflozin Propanediol (Farxiga) 10 MG) PO SCH (08:00)
[2019-05-25] MEDS ORDERED: QUEtiapine 25mg tablet PO SCH (08:00)
[2019-05-25] MEDS: cefepime 2g/NS 100ml ADVANTAGE 100 ML IV SCH (08:10)
[2019-05-25] MEDS: spironolactone 50 MG tablet PO SCH (08:11)
[2019-05-25] MEDS: liothyronine sod 5mcg tablet PO SCH (08:11)
[2019-05-25] MEDS: pregabalin 75mg capsule PO SCH ×2 (08:11→20:22)
[2019-05-25] MEDS: levoTHYROXINE 75mcg tablet PO SCH (08:11)
[2019-05-25] MEDS: pantoprazole 40mg Tablet.DR PO SCH (08:11)
[2019-05-25] MEDS: heparin, porcine 5000 units/ml vial SQ SCH ×2 (08:13→20:22)
[2019-05-25 10:00] VITALS: BP 139/61
--- NOTE | 2019-05-25 10:46 | NUR ---
Extended PIV placed via Ultrasound Guidance. Arrow Extended PIV Lot# [id number] Exp 10/03/2020 Addendum: 05/25/19 at 1047 by Aleah Macias RN Amended: Links added.
[2019-05-25] MEDS: piperacillin/tazo 3.375gm/50ml 50 ML IV SCH ×2 (11:05→16:38)
--- NOTE | 2019-05-25 16:59 | NUR ---
PAGER ID: [phone] MESSAGE: Dr. Armas patient Daya Frazier said she had a little bit of blurred vision and a headache, she seems fine neurologically. Also do you want her on diabetes protocol just in case. Angi [phone]
[2019-05-25 18:00] VITALS: BP 136/60
--- NOTE | 2019-05-25 18:35 | NUR ---
Problems reprioritized. Patient report given, questions answered & plan of care reviewed with Farheen ALVAREZ.
--- NOTE | 2019-05-25 18:36 | NUR ---
Patient in room ORTHO 4006. I have received report from Angi ALVAREZ and had the opportunity to ask questions and assume patient care.
[2019-05-25] MEDS: ROPINIRole 1mg tablet PO SCH (20:22)
[2019-05-25] MEDS: QUEtiapine 25mg tablet PO SCH (20:22)
[2019-05-25 22:00] VITALS: BP 123/58
[2019-05-25] MEDS: clonazePAM 1mg tablet PO PRN (23:09)
[2019-05-26] MEDS: piperacillin/tazo 3.375gm/50ml 50 ML IV SCH ×3 (00:13→16:24)
[2019-05-26] MEDS: normal saline 1000ml 1,000 ML IV SCH ×4 (00:13→18:00)
[2019-05-26] MEDS: HYDROcodone/acetaminophen 10/325mg tab PO PRN ×3 (03:39→16:25)
[2019-05-26 06:00] VITALS: BP 116/59
--- NOTE | 2019-05-26 06:00 | NUR ---
Patient in room ORTHO 4006. I have received report from YUDI ALVAREZ and had the opportunity to ask questions and assume patient care.
--- NOTE | 2019-05-26 06:28 | NUR ---
Problems reprioritized. Patient report given, questions answered & plan of care reviewed with Remberto ALVAREZ.
[2019-05-26] MEDS: ondansetron/PF 4mg/2ml inj IV PRN (07:05)
[2019-05-26 07:42] LABS: BASOPHILS % (AUTO) 0.4 % (0-1); EOSINOPHILS # (AUTO) 0.2 X10'3 (0-0.9); HEMATOCRIT 34.2 % (35.0-45.0); HEMOGLOBIN 11.3 g/dl (12.0-16.0); LYMPHOCYTES # (AUTO) 1.1 X10'3 (1.1-4.8); LYMPHOCYTES % (AUTO) 26.2 % (21-51); MEAN CORPUSCULAR HEMOGLOBIN 28.9 PG (27.0-31.0); MEAN CORPUSCULAR HGB CONC 33.1 g/dL (33.0-36.5); MEAN CORPUSCULAR VOLUME 87.4 FL (78-98); MEAN PLATELET VOLUME 9.3 FL (7.4-10.4); MONOCYTES # (AUTO) 0.3 X10'3 (0-0.9); MONOCYTES % (AUTO) 7.5 % (2-12); NEUTROPHILS # (AUTO) 2.6 X10'3 (1.8-7.7); NEUTROPHILS % (AUTO) 61.9 % (42-75); PLATELET COUNT 139 X10'3 (140-440); RED BLOOD COUNT 3.91 X10'6 (4.20-5.60); RED CELL DISTRIBUTION WIDTH 15.8 % (11.5-14.5); WHITE BLOOD COUNT 4.2 X10'3 (4.5-11.0)
[2019-05-26 07:45] LABS: ALBUMIN 1.9 G/DL (3.4-5.0); ANION GAP 5 (8-16); BLOOD UREA NITROGEN 31 MG/DL (7-18); BUN/CREATININE RATIO 14.6 (6.6-38.0); CALCIUM 7.4 MG/DL (8.5-10.1); CHLORIDE 109 MMOL/L (99-107); CREATININE 2.12 MG/DL (0.40-0.90); GLUCOSE 91 MG/DL (70-104); POTASSIUM 4.4 MMOL/L (3.5-5.1); SODIUM 139 MMOL/L (135-145); TOTAL CARBON DIOXIDE 24.6 MMOL/L (24-32); eGFR 24 ML/MIN
[2019-05-26] MEDS: pregabalin 75mg capsule PO SCH ×2 (08:00→20:57)
[2019-05-26] MEDS: (Dapagliflozin Propanediol (Farxiga) 10 MG) PO SCH (08:00)
[2019-05-26] MEDS: spironolactone 50 MG tablet PO SCH (09:28)
[2019-05-26] MEDS: liothyronine sod 5mcg tablet PO SCH (09:28)
[2019-05-26] MEDS: pantoprazole 40mg Tablet.DR PO SCH (09:29)
[2019-05-26] MEDS: levoTHYROXINE 75mcg tablet PO SCH (09:29)
[2019-05-26] MEDS: levoFLOXACIN 750MG TABLET PO SCH (09:29)
[2019-05-26] MEDS: heparin, porcine 5000 units/ml vial SQ SCH ×2 (09:30→20:57)
[2019-05-26 10:00] VITALS: BP 100/63
--- NOTE | 2019-05-26 17:22 | NUR ---
BS 65, GAVE JUICE WILL RECHECK.
--- NOTE | 2019-05-26 17:44 | NUR ---
PAGER ID: [phone] MESSAGE: YEYO [id number] RE: JESIKA 1895N BS 65 GAVE JUICE UP TO 66 NO ORDERS FOR DEX4.
[2019-05-26 18:00] VITALS: BP 91/46
--- NOTE | 2019-05-26 18:05 | NUR ---
Problems reprioritized. Patient report given, questions answered & plan of care reviewed with YUDI ALVAREZ.
[2019-05-26] MEDS ORDERED: dextrose ORAL solution 15 GM/59 ML bottle PO PRN ×2 (18:15)
[2019-05-26] MEDS ORDERED: glucagon, human recombinant 1mg kit SUBCUT PRN (18:15)
[2019-05-26] MEDS ORDERED: dextrose 50%-water 50ml dispensing syringe IV PRN ×2 (18:15)
[2019-05-26] MEDS: QUEtiapine 25mg tablet PO SCH (20:53)
[2019-05-26] MEDS: ROPINIRole 1mg tablet PO SCH (20:57)
[2019-05-26 22:00] VITALS: BP 99/56
[2019-05-26] MEDS: clonazePAM 1mg tablet PO PRN (22:58)
[2019-05-27] MEDS: piperacillin/tazo 3.375gm/50ml 50 ML IV SCH ×4 (00:14→23:58)
[2019-05-27] MEDS: normal saline 1000ml 1,000 ML IV SCH ×2 (04:00→15:20)
[2019-05-27] MEDS: HYDROcodone/acetaminophen 10/325mg tab PO PRN ×3 (04:53→15:19)
[2019-05-27 05:01] LABS: ALBUMIN 1.7 G/DL (3.4-5.0); ANION GAP 6 (8-16); BLOOD UREA NITROGEN 36 MG/DL (7-18); BUN/CREATININE RATIO 14.7 (6.6-38.0); CALCIUM 7.3 MG/DL (8.5-10.1); CHLORIDE 109 MMOL/L (99-107); CREATININE 2.45 MG/DL (0.40-0.90); GLUCOSE 89 MG/DL (70-104); POTASSIUM 4.7 MMOL/L (3.5-5.1); SODIUM 138 MMOL/L (135-145); TOTAL CARBON DIOXIDE 22.8 MMOL/L (24-32); eGFR 20 ML/MIN
[2019-05-27 06:15] LABS: EOSINOPHILS # (AUTO) 0.1 X10'3 (0-0.9); HEMOGLOBIN 10.2 g/dl (12.0-16.0); LYMPHOCYTES # (AUTO) 1.3 X10'3 (1.1-4.8); MEAN CORPUSCULAR HEMOGLOBIN 29.4 PG (27.0-31.0); MONOCYTES # (AUTO) 0.5 X10'3 (0-0.9); NEUTROPHILS # (AUTO) 2.3 X10'3 (1.8-7.7); WHITE BLOOD COUNT 4.3 X10'3 (4.5-11.0)
[2019-05-27 06:18] LABS: BASOPHILS % (AUTO) 0.2 % (0-1); EOSINOPHILS % (AUTO) 3.4 % (0-6); HEMATOCRIT 30.4 % (35.0-45.0); LYMPHOCYTES % (AUTO) 31.3 % (21-51); MEAN CORPUSCULAR HGB CONC 33.6 g/dL (33.0-36.5); MEAN CORPUSCULAR VOLUME 87.4 FL (78-98); MONOCYTES % (AUTO) 11.6 % (2-12); NEUTROPHILS % (AUTO) 53.5 % (42-75); PLATELET COUNT 117 X10'3 (140-440); RED BLOOD COUNT 3.48 X10'6 (4.20-5.60); RED CELL DISTRIBUTION WIDTH 15.6 % (11.5-14.5)
--- NOTE | 2019-05-27 06:30 | NUR ---
Patient in room ORTHO 4006. I have received report from Marla ALVAREZ and had the opportunity to ask questions and assume patient care.
--- NOTE | 2019-05-27 06:55 | NUR ---
Problems reprioritized. Patient report given, questions answered & plan of care reviewed with Juliana ALVAREZ.
[2019-05-27 07:41] LABS: LARGE PLATELETS FEW; PLATELET ESTIMATE DECREASED; SCHISTOCYTES FEW; TOTAL CELLS COUNTED 100
[2019-05-27] MEDS: (Dapagliflozin Propanediol (Farxiga) 10 MG) PO SCH (08:00)
[2019-05-27] MEDS: pantoprazole 40mg Tablet.DR PO SCH (09:21)
[2019-05-27] MEDS: liothyronine sod 5mcg tablet PO SCH (09:21)
[2019-05-27] MEDS: levoTHYROXINE 75mcg tablet PO SCH (09:22)
[2019-05-27] MEDS: spironolactone 50 MG tablet PO SCH (09:22)
[2019-05-27] MEDS: heparin, porcine 5000 units/ml vial SQ SCH ×2 (09:22→19:33)
[2019-05-27 18:00] VITALS: BP 140/47
--- NOTE | 2019-05-27 18:30 | NUR ---
Problems reprioritized. Patient report given, questions answered & plan of care reviewed with Aidee ALVAREZ.
[2019-05-27] MEDS: pregabalin 75mg capsule PO SCH (19:46)
[2019-05-27] MEDS: ROPINIRole 1mg tablet PO SCH (19:47)
[2019-05-27] MEDS: QUEtiapine 25mg tablet PO SCH (19:47)
[2019-05-27 22:00] VITALS: BP 110/49
[2019-05-28 06:00] VITALS: BP 124/44
[2019-05-28 06:09] LABS: BASOPHILS % (AUTO) 0.3 % (0-1); EOSINOPHILS # (AUTO) 0.2 X10'3 (0-0.9); EOSINOPHILS % (AUTO) 3.8 % (0-6); HEMOGLOBIN 10.9 g/dl (12.0-16.0); LYMPHOCYTES # (AUTO) 1.2 X10'3 (1.1-4.8); MEAN CORPUSCULAR HEMOGLOBIN 29.3 PG (27.0-31.0); MEAN CORPUSCULAR HGB CONC 33.1 g/dL (33.0-36.5); MEAN CORPUSCULAR VOLUME 88.5 FL (78-98); MEAN PLATELET VOLUME 9.7 FL (7.4-10.4); MONOCYTES # (AUTO) 0.5 X10'3 (0-0.9); MONOCYTES % (AUTO) 11.2 % (2-12); NEUTROPHILS # (AUTO) 2.5 X10'3 (1.8-7.7); NEUTROPHILS % (AUTO) 57.7 % (42-75); PLATELET COUNT 127 X10'3 (140-440); RED BLOOD COUNT 3.73 X10'6 (4.20-5.60); RED CELL DISTRIBUTION WIDTH 15.9 % (11.5-14.5); WHITE BLOOD COUNT 4.3 X10'3 (4.5-11.0)
[2019-05-28 06:11] LABS: ANION GAP 6 (8-16); BLOOD UREA NITROGEN 38 MG/DL (7-18); BUN/CREATININE RATIO 15.9 (6.6-38.0); CALCIUM 8.2 MG/DL (8.5-10.1); CHLORIDE 111 MMOL/L (99-107); CREATININE 2.39 MG/DL (0.40-0.90); GLUCOSE 93 MG/DL (70-104); POTASSIUM 4.8 MMOL/L (3.5-5.1); SODIUM 141 MMOL/L (135-145); eGFR 21 ML/MIN
--- NOTE | 2019-05-28 06:15 | NUR ---
Patient in room ORTHO 4006. I have received report from KIM Hoskins and had the opportunity to ask questions and assume patient care.
[2019-05-28] MEDS: piperacillin/tazo 3.375gm/50ml 50 ML IV SCH (07:26)
[2019-05-28] MEDS: spironolactone 50 MG tablet PO SCH (07:26)
[2019-05-28] MEDS: levoTHYROXINE 75mcg tablet PO SCH (07:26)
[2019-05-28] MEDS: liothyronine sod 5mcg tablet PO SCH (07:26)
[2019-05-28] MEDS: levoFLOXACIN 750MG TABLET PO SCH (07:26)
[2019-05-28] MEDS: pantoprazole 40mg Tablet.DR PO SCH (07:26)
[2019-05-28] MEDS: heparin, porcine 5000 units/ml vial SQ SCH (07:28)
[2019-05-28] MEDS: (Dapagliflozin Propanediol (Farxiga) 10 MG) PO SCH (07:46)
[2019-05-28] MEDS: normal saline 1000ml 1,000 ML IV SCH ×2 (09:36)
--- NOTE | 2019-05-28 09:36 | NUR ---
Dr. Armas at bedside, new order to place PICC line prior to discharge to [facility]. Consent signed by
[2019-05-28] MEDS: clonazePAM 1mg tablet PO PRN (10:53)
--- NOTE | 2019-05-28 12:10 | NUR ---
Called and gave patient report to nurse, ODELL Stephen at [facility].
--- NOTE | 2019-05-28 12:20 | NUR ---
PICC Line inserted in Patient's Right Upper Arm, REF # [id number], LOT # [id number], EXP. 02/04/2020
--- NOTE | 2019-05-28 14:35 | NUR ---
Patient stable for transfer per MD. PICC line placed to [facility] prior to transfer. Extended PIV removed from LUCIAN, catheter in tact. All belonging sent with patient. Home meds returned to patient from pharmacy. Transported off unit via wheel chair by Katie cargo.
== END 2019-05-28 14:35 | DRG 559 ==
LOC: ER 13:43 → ED HOLD 16:00 → ORTHO 4S 18:50
PROVIDERS: ADMIT Family Medicine; ATTEND Family Medicine
PROC: 02HV33Z Insertion of Infusion Device into Superior Vena Cava, Percutaneous Approach (ICD-10-PCS; principal; 2019-05-28)
DX: T84.629A Infection and inflammatory reaction due to internal fixation device of unspecified bone of leg, initial encounter (principal); N17.0 Acute kidney failure with tubular necrosis; B96.5 Pseudomonas (aeruginosa) (mallei) (pseudomallei) as the cause of diseases classified elsewhere; K74.60 Unspecified cirrhosis of liver; G25.81 Restless legs syndrome; F32.9 Major depressive disorder, single episode, unspecified; M54.9 Dorsalgia, unspecified; G89.29 Other chronic pain; K21.9 Gastro-esophageal reflux disease without esophagitis; L03.031 Cellulitis of right toe; E03.9 Hypothyroidism, unspecified; E11.22 Type 2 diabetes mellitus with diabetic chronic kidney disease; E11.42 Type 2 diabetes mellitus with diabetic polyneuropathy; E78.00 Pure hypercholesterolemia, unspecified; E78.5 Hyperlipidemia, unspecified; N18.9 Chronic kidney disease, unspecified; Z60.2 Problems related to living alone; Z96.651 Presence of right artificial knee joint; Y79.3 Surgical instruments, materials and orthopedic devices (including sutures) associated with adverse incidents; Y83.8 Other surgical procedures as the cause of abnormal reaction of the patient, or of later complication, without mention of misadventure at the time of the procedure; Z56.0 Unemployment, unspecified; Y92.89 Other specified places as the place of occurrence of the external cause; Z88.5 Allergy status to narcotic agent; I25.2 Old myocardial infarction; Z86.73 Personal history of transient ischemic attack (TIA), and cerebral infarction without residual deficits; Z88.8 Allergy status to other drugs, medicaments and biological substances; Z79.82 Long term (current) use of aspirin; Z79.899 Other long term (current) drug therapy; Z79.84 Long term (current) use of oral hypoglycemic drugs; Z90.49 Acquired absence of other specified parts of digestive tract
CPT/HCPCS: 36415; 36569; 73630; 76937; 80048; 80053; 82948; 83036; 84443; 85025; 85610; 86140; 87081; 96365; 99285; G0378; J0692; J1644; J2405; J2543; J3260; J7030

== ENCOUNTER 2019-06-03 22:26 | Emergency (ER) | payer MEDICARE, MEDICAID, OTHER ==
[~2019-06-03] VITALS: Ht 154.9 cm; Wt 81.0 kg
[~2019-06-03 22:26] MED LIST changes: -ASPI-611 PO; -CEPH500C5 PO; -CHOL500050 PO; +COLL30OI TP; -CYAN100097 PO; -DICL100G15 TOP; -GABA600T13 PO; -LANTUS SQ; -LIDO700A32 TOP; -METF-436 PO; +OMEP-297 PO; -ONDA4TAB6 PO; -OXYC-150 PO; -PANT-47 PO; -QUET-1 PO; +QUET300T19 PO; -SPIR50TA PO; +SPIR50TA5 PO
[2019-06-03 23:39] LABS: HEMATOCRIT 35.1 % (35.0-45.0); HEMOGLOBIN 11.3 g/dl (12.0-16.0); LYMPHOCYTES # (AUTO) 1.1 X10'3 (1.1-4.8); LYMPHOCYTES % (AUTO) 28.5 % (21-51); MEAN CORPUSCULAR HEMOGLOBIN 28.4 PG (27.0-31.0); MEAN CORPUSCULAR HGB CONC 32.3 g/dL (33.0-36.5); MEAN CORPUSCULAR VOLUME 87.8 FL (78-98); MEAN PLATELET VOLUME 8.9 FL (7.4-10.4); MONOCYTES # (AUTO) 0.4 X10'3 (0-0.9); MONOCYTES % (AUTO) 10.5 % (2-12); NEUTROPHILS # (AUTO) 2.3 X10'3 (1.8-7.7); PLATELET COUNT 207 X10'3 (140-440); RED CELL DISTRIBUTION WIDTH 15.4 % (11.5-14.5)
[2019-06-03 23:56] LABS: PARTIAL THROMBOPLASTIN TIME 28 SECONDS (22-32)
[2019-06-04 00:08] LABS: ALANINE AMINOTRANSFERASE 26 U/L (12-78); ALBUMIN 2.2 G/DL (3.4-5.0); ALBUMIN/GLOBULIN RATIO 0.5 (1.1-1.5); ALKALINE PHOSPHATASE 330 IU/L (46-116); AMYLASE 24 U/L (25-115); ANION GAP 10 (8-16); ASPARTATE AMINO TRANSFERASE 44 U/L (10-37); BILIRUBIN,TOTAL 0.2 MG/DL (0.1-1.0); BLOOD UREA NITROGEN 26 MG/DL (7-18); BUN/CREATININE RATIO 14.2 (6.6-38.0); CALCIUM 7.9 MG/DL (8.5-10.1); CHLORIDE 112 MMOL/L (99-107); CREATININE 1.83 MG/DL (0.40-0.90); GLUCOSE 87 MG/DL (70-104); LIPASE 115 U/L (73-393); SODIUM 144 MMOL/L (135-145); TOTAL CARBON DIOXIDE 22.2 MMOL/L (24-32); TOTAL PROTEIN 6.3 G/DL (6.4-8.2); eGFR 28 ML/MIN
[2019-06-04] MEDS ORDERED: albumin (human) 25% 100 ML IV solution IV ONE (00:25)
--- NOTE | 2019-06-04 00:30 | NUR ---
AMINA APPROVED USE OF PICC LINE, NO CHEST XRAY ORDERED
[2019-06-04 01:22] LABS: BODY FLUID PH (NON-PLEURAL) 7.5
[2019-06-04 01:34] LABS: LYMPHOCYTES,BODY FLUID 78 %; MONOCYTES,BODY FLUID 13 %; NEUTROPHILS,BODY FLUID 9 %
[2019-06-04 01:36] LABS: BF RBC COUNT 49 /CU MM; BF WBC COUNT 403 /CU MM (0-1000); BFAPPEAR HAZY; BFCOLOR YELLOW; BFVOLUME 54 ML
[2019-06-04 01:46] LABS: GLUCOSE,BODY FLUID 91 MG/DL; TOTAL PROTEIN,BODY FLUID < 2.0 G/DL
[2019-06-04 01:57] VITALS: BP 130/62
== END 2019-06-04 03:20 | disposition home or self-care (01) ==
LOC: ER 22:26
DX: R14.0 Abdominal distension (gaseous) (principal); R18.8 Other ascites; R06.02 Shortness of breath; R11.10 Vomiting, unspecified; E11.42 Type 2 diabetes mellitus with diabetic polyneuropathy; E78.00 Pure hypercholesterolemia, unspecified; G89.29 Other chronic pain; K21.9 Gastro-esophageal reflux disease without esophagitis; F32.9 Major depressive disorder, single episode, unspecified; Z86.14 Personal history of Methicillin resistant Staphylococcus aureus infection; Z90.49 Acquired absence of other specified parts of digestive tract; Z98.890 Other specified postprocedural states; Z56.0 Unemployment, unspecified; Z60.2 Problems related to living alone; Z88.5 Allergy status to narcotic agent; Z88.8 Allergy status to other drugs, medicaments and biological substances; Z79.899 Other long term (current) drug therapy
CPT/HCPCS: 36415; 49083; 80053; 82150; 82945; 83690; 83986; 84157; 85025; 85610; 85730; 87070; 89051; 96365; 99285; P9047

== ENCOUNTER 2019-06-06 20:09 | Emergency (ER) | payer MEDICARE, MEDICAID, OTHER ==
[~2019-06-06] VITALS: Ht 154.9 cm; Wt 78.0 kg
[2019-06-06] MEDS ORDERED: morphine 4 MG/ML inj SYRINge IV PRN (20:35)
[2019-06-06] MEDS ORDERED: ondansetron/PF 4mg/2ml inj IV ONE (20:35)
[2019-06-06] MEDS ORDERED: normal saline 1000ML IV soln IVB ONE (20:35)
--- NOTE | 2019-06-06 20:53 | NUR ---
pt off the floor to ct
--- NOTE | 2019-06-06 20:53 | NUR ---
dr galvan approved use of pt picc in right arm.
[2019-06-06 21:01] LABS: BASOPHILS % (AUTO) 0.6 % (0-1); EOSINOPHILS % (AUTO) 0.7 % (0-6); HEMATOCRIT 35.9 % (35.0-45.0); HEMOGLOBIN 11.7 g/dl (12.0-16.0); LYMPHOCYTES # (AUTO) 1.4 X10'3 (1.1-4.8); LYMPHOCYTES % (AUTO) 35.5 % (21-51); MEAN CORPUSCULAR HEMOGLOBIN 28.8 PG (27.0-31.0); MEAN CORPUSCULAR HGB CONC 32.6 g/dL (33.0-36.5); MEAN CORPUSCULAR VOLUME 88.4 FL (78-98); MEAN PLATELET VOLUME 8.9 FL (7.4-10.4); MONOCYTES # (AUTO) 0.3 X10'3 (0-0.9); MONOCYTES % (AUTO) 7.4 % (2-12); NEUTROPHILS # (AUTO) 2.2 X10'3 (1.8-7.7); NEUTROPHILS % (AUTO) 55.8 % (42-75); PLATELET COUNT 163 X10'3 (140-440); RED BLOOD COUNT 4.06 X10'6 (4.20-5.60); RED CELL DISTRIBUTION WIDTH 16.2 % (11.5-14.5); WHITE BLOOD COUNT 3.9 X10'3 (4.5-11.0)
[2019-06-06 21:19] LABS: ALANINE AMINOTRANSFERASE 25 U/L (12-78); ALBUMIN 2.4 G/DL (3.4-5.0); ALBUMIN/GLOBULIN RATIO 0.7 (1.1-1.5); ALKALINE PHOSPHATASE 281 IU/L (46-116); ANION GAP 13 (8-16); ASPARTATE AMINO TRANSFERASE 38 U/L (10-37); BILIRUBIN,TOTAL 0.2 MG/DL (0.1-1.0); BLOOD UREA NITROGEN 27 MG/DL (7-18); BUN/CREATININE RATIO 12.1 (6.6-38.0); CALCIUM 7.4 MG/DL (8.5-10.1); CHLORIDE 115 MMOL/L (99-107); CREATININE 2.24 MG/DL (0.40-0.90); GLUCOSE 97 MG/DL (70-104); LIPASE 149 U/L (73-393); POTASSIUM 5.1 MMOL/L (3.5-5.1); SODIUM 148 MMOL/L (135-145); TOTAL CARBON DIOXIDE 20.2 MMOL/L (24-32); eGFR 22 ML/MIN
[2019-06-06] MEDS ORDERED: HYDROmorphone inj. 0.5 MG/0.5 ML DISP.SYRIN IV ONE ×2 (22:00→22:35)
[2019-06-06 22:48] VITALS: BP 152/89
== END 2019-06-06 23:47 | disposition home or self-care (01) ==
LOC: ER 20:10
DX: K43.9 Ventral hernia without obstruction or gangrene (principal); R11.2 Nausea with vomiting, unspecified; E78.00 Pure hypercholesterolemia, unspecified; K21.9 Gastro-esophageal reflux disease without esophagitis; G89.29 Other chronic pain; E11.42 Type 2 diabetes mellitus with diabetic polyneuropathy; Z90.49 Acquired absence of other specified parts of digestive tract; Z98.890 Other specified postprocedural states; Z56.0 Unemployment, unspecified; Z86.14 Personal history of Methicillin resistant Staphylococcus aureus infection; Z88.5 Allergy status to narcotic agent; Z88.8 Allergy status to other drugs, medicaments and biological substances; Z79.899 Other long term (current) drug therapy
CPT/HCPCS: 36415; 74176; 80053; 83690; 85025; 96374; 96375; 99284; J1170; J2270; J2405; J7030

== ENCOUNTER → 2019-06-08 | Emergency (ER) | payer MEDICARE, MEDICAID, OTHER ==
[~2019-06-08] VITALS: Ht 154.9 cm; Wt 100.5 kg
--- NOTE | 2019-06-08 13:00 | NUR ---
PARACENTESIS IN PROGRESS: YELLOW CLEAR FLUID DRAINING
--- NOTE | 2019-06-08 13:15 | NUR ---
PARACENTESIS COMPLETED AT 1315. CATHETER OUT, CATHETER INTACT SITE CLEAR. GAUZE 4X4 WITH FOAM TAPE APPLIED TO PARACENTESIS CATHETER SITE. 4.5 LITERS OF CLEAR YELLOW FLUID OUT OF ABDOMEN. DR BOLES AWARE. SEE VITAL SIGNS.
[2019-06-08 13:29] VITALS: BP 137/61
--- NOTE | 2019-06-08 13:48 | NUR ---
PATIENT'S MOTHER IS GOING TO TAKE HER HOME BECAUSE REYNA CARGO CAN NOT PICK HER UP UNTIL 4 PM. PATIENT IS BREATHING WNL, RR EVEN AND UNLABORED, OOB AND AMBULATED TO BATHROOM WITH MINIMAL ASSIST
== END | disposition home or self-care (01) ==
LOC: ER 11:53
DX: R18.8 Other ascites (principal); R10.84 Generalized abdominal pain; E78.00 Pure hypercholesterolemia, unspecified; K21.9 Gastro-esophageal reflux disease without esophagitis; G89.29 Other chronic pain; E11.42 Type 2 diabetes mellitus with diabetic polyneuropathy; Z56.0 Unemployment, unspecified; Z90.49 Acquired absence of other specified parts of digestive tract; Z98.890 Other specified postprocedural states; Z86.14 Personal history of Methicillin resistant Staphylococcus aureus infection; Z88.5 Allergy status to narcotic agent; Z88.8 Allergy status to other drugs, medicaments and biological substances; Z79.899 Other long term (current) drug therapy
CPT/HCPCS: 49083; 99285

== ENCOUNTER 2019-06-11 07:46 | Day surgery (SDC) | payer MEDICARE, MEDICAID, OTHER ==
[2019-06-11] VITALS (7 sets, daily range): BP systolic 96–134; BP diastolic 54–70
[~2019-06-11] VITALS: Ht 154.9 cm; Wt 73.7 kg
[~2019-06-11 07:46] MED LIST changes: +albumin 25% 100mL bottle x 1 IV PRN; +normal saline 1000ml 1,000 ML IV PRN
== END 2019-06-11 10:10 | disposition home or self-care (01) ==
LOC: SSTAY O 07:46
PROVIDERS: ATTEND Radiology Vascular & Interventional Radiology
DX: K74.60 Unspecified cirrhosis of liver (principal); R18.8 Other ascites
CPT/HCPCS: 49083; J7030; P9047

== ENCOUNTER 2019-08-02 07:38 | Day surgery (SDC) | payer MEDICARE, MEDICAID, OTHER ==
[~2019-08-02] VITALS: Ht 154.9 cm; Wt 69.4 kg
[~2019-08-02 07:38] MED LIST changes: +ACET-1008 PO; +BISA10SU60 RC; +FURO-150 PO; +GLUC1KIT IM; +IPRA3AMP31 IH; +LEVO750T21 PO; +LIOT5TAB10 PO; -LIOT5TAB14 PO; +MAG355OR18 PO; +MAGN400O6 PO; +NA P133E4 RC; -OMEP-297 PO; +OMEP20CA15 PO; +ONDA4TAB6 PO; +PIPE3.3739 IV; +SPIR50TA PO; -SPIR50TA5 PO; -albumin 25% 100mL bottle x 1 IV PRN; -normal saline 1000ml 1,000 ML IV PRN
[2019-08-02] MEDS ORDERED: normal saline 1000ml 1,000 ML IV PRN (07:55)
[2019-08-02] MEDS ORDERED: albumin 25% 100mL bottle x 1 IV PRN (07:55)
[2019-08-02 08:45] VITALS: BP 120/91
[2019-08-02 09:00] VITALS: BP 140/67
[2019-08-02 09:15] VITALS: BP 148/77
[2019-08-02 09:25] VITALS: BP 146/72
[2019-08-02 09:45] VITALS: BP 154/86
[2019-08-02] MEDS ORDERED: gelatin sponge, absorbable (Gelfoam 12-7MM) sponge TP ONE (09:55)
[2019-08-02 11:44] VITALS: BP 130/78
== END 2019-08-02 10:20 | disposition home or self-care (01) ==
LOC: SSTAY O 07:38
PROVIDERS: ATTEND Radiology Vascular & Interventional Radiology
DX: R18.8 Other ascites (principal); E78.5 Hyperlipidemia, unspecified; K21.9 Gastro-esophageal reflux disease without esophagitis; E11.9 Type 2 diabetes mellitus without complications; F32.9 Major depressive disorder, single episode, unspecified; G89.29 Other chronic pain; Z90.49 Acquired absence of other specified parts of digestive tract; Z96.651 Presence of right artificial knee joint; Z88.5 Allergy status to narcotic agent; Z88.8 Allergy status to other drugs, medicaments and biological substances; Z88.0 Allergy status to penicillin; Z88.2 Allergy status to sulfonamides; Z79.899 Other long term (current) drug therapy; Z82.49 Family history of ischemic heart disease and other diseases of the circulatory system
CPT/HCPCS: 49083; C1729; J2001

== ENCOUNTER 2019-08-16 05:48 | Day surgery (SDC) | payer MEDICARE, MEDICAID, OTHER ==
[~2019-08-16 05:48] MED LIST changes: -ACET-1008 PO; -BISA10SU60 RC; -COLL30OI TP; -IPRA3AMP31 IH; -LEVO750T21 PO; -MAG355OR18 PO; -MAGN400O6 PO; -NA P133E4 RC; -PIPE3.3739 IV
[2019-08-16] MEDS ORDERED: albumin 25% 100mL bottle x 1 IV PRN (06:15)
[2019-08-16] MEDS ORDERED: normal saline 1000ml 1,000 ML IV PRN (06:15)
[2019-08-16] MEDS ORDERED: MUPI22OI30 TP (06:37)
[2019-08-16 08:15] VITALS: BP 145/83
== END 2019-08-16 08:21 | disposition home or self-care (01) ==
LOC: SSTAY O 05:48
PROVIDERS: ATTEND Radiology Diagnostic Radiology
DX: R18.8 Other ascites (principal); Z53.8 Procedure and treatment not carried out for other reasons; N18.6 End stage renal disease; K74.60 Unspecified cirrhosis of liver; K21.9 Gastro-esophageal reflux disease without esophagitis; E78.5 Hyperlipidemia, unspecified; E11.22 Type 2 diabetes mellitus with diabetic chronic kidney disease; F32.9 Major depressive disorder, single episode, unspecified; G89.29 Other chronic pain; M54.5 Low back pain; Z90.49 Acquired absence of other specified parts of digestive tract; Z98.890 Other specified postprocedural states; Z96.651 Presence of right artificial knee joint; Z88.0 Allergy status to penicillin; Z88.6 Allergy status to analgesic agent; Z88.2 Allergy status to sulfonamides; Z79.899 Other long term (current) drug therapy; Z82.49 Family history of ischemic heart disease and other diseases of the circulatory system; Z82.3 Family history of stroke
CPT/HCPCS: 76705

== ENCOUNTER 2019-09-07 06:35 | Day surgery (SDC) | payer MEDICARE, MEDICAID, OTHER ==
[2019-09-07] VITALS (8 sets, daily range): BP systolic 100–135; BP diastolic 62–85
[~2019-09-07] VITALS: Ht 154.9 cm; Wt 70.8 kg
[~2019-09-07 06:35] MED LIST changes: -DAPA10TA PO; +MUPI22OI30 TP; -SPIR50TA PO
[2019-09-07] MEDS ORDERED: albumin 25% 100mL bottle x 1 IV PRN (07:00)
[2019-09-07] MEDS ORDERED: normal saline 1000ml 1,000 ML IV PRN (07:00)
== END 2019-09-07 09:20 | disposition home or self-care (01) ==
LOC: SSTAY O 06:35 → MED 3N 06:36 → SSTAY O 09:20
PROVIDERS: ATTEND Radiology Vascular & Interventional Radiology
DX: R18.8 Other ascites (principal); I25.2 Old myocardial infarction; K21.9 Gastro-esophageal reflux disease without esophagitis; E11.9 Type 2 diabetes mellitus without complications; K74.60 Unspecified cirrhosis of liver; G89.29 Other chronic pain; F32.9 Major depressive disorder, single episode, unspecified; Z79.899 Other long term (current) drug therapy; Z88.0 Allergy status to penicillin; Z88.6 Allergy status to analgesic agent; Z88.2 Allergy status to sulfonamides; Z90.49 Acquired absence of other specified parts of digestive tract; Z96.651 Presence of right artificial knee joint; Z86.73 Personal history of transient ischemic attack (TIA), and cerebral infarction without residual deficits; Z88.8 Allergy status to other drugs, medicaments and biological substances; Z98.890 Other specified postprocedural states
CPT/HCPCS: 49083; C1729

== ENCOUNTER 2019-09-14 06:30 | Day surgery (SDC) | payer MEDICARE, MEDICAID, OTHER ==
[~2019-09-14] VITALS: Ht 154.9 cm; Wt 69.2 kg
[2019-09-14 06:30] VITALS: BP 114/60
[~2019-09-14 06:30] MED LIST changes: -MUPI22OI30 TP
[2019-09-14 06:49] VITALS: BP 114/60
[2019-09-14] MEDS ORDERED: cefazolin/dext.iso 2gm/100ml 100 ML IV ONE (06:50)
[2019-09-14] MEDS ORDERED: normal saline 1,000 ML IV SCH ×2 (06:50→07:30)
[2019-09-14] MEDS ORDERED: SPIR50TA5 PO (07:09)
[2019-09-14] MEDS ORDERED: BENZ-49 PO (07:10)
[2019-09-14 07:14] LABS: BASOPHILS # (AUTO) 0.1 X10'3 (0-0.2); BASOPHILS % (AUTO) 1.1 % (0-1); EOSINOPHILS # (AUTO) 0.4 X10'3 (0-0.9); EOSINOPHILS % (AUTO) 7.2 % (0-6); HEMOGLOBIN 13.9 g/dl (12.0-16.0); LYMPHOCYTES # (AUTO) 1.7 X10'3 (1.1-4.8); LYMPHOCYTES % (AUTO) 34.5 % (21-51); MEAN CORPUSCULAR HEMOGLOBIN 28.9 PG (27.0-31.0); MEAN CORPUSCULAR HGB CONC 32.2 g/dL (33.0-36.5); MEAN CORPUSCULAR VOLUME 89.8 FL (78-98); MEAN PLATELET VOLUME 9.3 FL (7.4-10.4); MONOCYTES # (AUTO) 0.4 X10'3 (0-0.9); MONOCYTES % (AUTO) 8.8 % (2-12); NEUTROPHILS # (AUTO) 2.4 X10'3 (1.8-7.7); NEUTROPHILS % (AUTO) 48.4 % (42-75); PLATELET COUNT 153 X10'3 (140-440); RED BLOOD COUNT 4.79 X10'6 (4.20-5.60); RED CELL DISTRIBUTION WIDTH 17.7 % (11.5-14.5)
[2019-09-14] MEDS ORDERED: fentaNYL/PF 50MCG/1 ML 2ML syringe ONE (08:33)
[2019-09-14] MEDS ORDERED: heparin 1,000unit/ml 10ml vial 10 ML ONE (08:33)
[2019-09-14] MEDS ORDERED: LIDOcaine 1%/PF 5ML 10 MG/ML VIAL ONE (08:33)
[2019-09-14] MEDS ORDERED: midazolam 2 mg/2 ml injection ONE (08:33)
--- NOTE | 2019-09-14 08:45 | NUR ---
Pt transported via gurney to angio suite.
[2019-09-14 09:30] VITALS: BP 122/71
--- NOTE | 2019-09-14 09:30 | NUR ---
Pt returned from angio suite via gurney. Pt awake, alert & in no acute distress. VSS as charted. Procedure site stable, minimal amount of dried blood present on outer edge of dressing tape, no blood or other discharge visible under transparent dressing at TDC insertion site.
[2019-09-14 09:45] VITALS: BP 104/54
[2019-09-14 10:00] VITALS: BP 138/67
[2019-09-14 10:15] VITALS: BP 163/85
--- NOTE | 2019-09-14 10:30 | NUR ---
Discharge information, including S&S worsening condition, provided to pt in both written and verbal form. Pt refused to acknowledge discharge education and refused to ask questions. Pt stated "Hurry up and get this thing out of me, I'm leaving" referring to IV in L wrist. IV removed, cannula intact. Dried blood on L breast removed with personal care wipes. Pt dressed self and all belongings, including cell phone, gathered up and sent with pt. Pt alert, oriented & in no physical distress at time of discharge. Pt wheeled down to lobby in wheelchair to meet private vehicle.
== END 2019-09-14 10:30 | disposition home or self-care (01) ==
LOC: SSTAY O 06:30 → MED 3N 06:30 → U 06:30 → SSTAY O 10:30
PROVIDERS: ATTEND Radiology Diagnostic Radiology
DX: T82.49XA Other complication of vascular dialysis catheter, initial encounter (principal); E11.22 Type 2 diabetes mellitus with diabetic chronic kidney disease; N18.9 Chronic kidney disease, unspecified; K74.60 Unspecified cirrhosis of liver; K21.9 Gastro-esophageal reflux disease without esophagitis; E78.5 Hyperlipidemia, unspecified; F32.9 Major depressive disorder, single episode, unspecified; G89.29 Other chronic pain; Z90.49 Acquired absence of other specified parts of digestive tract; Z96.651 Presence of right artificial knee joint; Z98.890 Other specified postprocedural states; Z88.2 Allergy status to sulfonamides; Z88.5 Allergy status to narcotic agent; Z88.8 Allergy status to other drugs, medicaments and biological substances; Z79.899 Other long term (current) drug therapy; Y83.8 Other surgical procedures as the cause of abnormal reaction of the patient, or of later complication, without mention of misadventure at the time of the procedure; Y92.89 Other specified places as the place of occurrence of the external cause
CPT/HCPCS: 36415; 36581; 85025; 99152; 99153; C1750; C1769; J1644; J2250; J3010; J7030; A9270

== ENCOUNTER 2019-09-25 06:19 | Day surgery (SDC) | payer MEDICARE, MEDICAID, OTHER ==
[2019-09-25] VITALS (8 sets, daily range): BP systolic 99–120; BP diastolic 46–76
[~2019-09-25] VITALS: Ht 180.3 cm; Wt 72.9 kg
[~2019-09-25 06:19] MED LIST changes: +BENZ-49 PO; -LEVO75TA PO; +SPIR50TA5 PO
[2019-09-25] MEDS ORDERED: normal saline 1000ml 1,000 ML IV PRN (06:55)
[2019-09-25] MEDS ORDERED: albumin 25% 100mL bottle x 1 IV PRN (06:55)
== END 2019-09-25 09:15 | disposition home or self-care (01) ==
LOC: SSTAY O 06:19 → MED 3N 06:31 → SSTAY O 09:15
PROVIDERS: ATTEND Radiology Diagnostic Radiology
DX: R18.8 Other ascites (principal); E78.5 Hyperlipidemia, unspecified; K21.9 Gastro-esophageal reflux disease without esophagitis; E11.9 Type 2 diabetes mellitus without complications; F32.9 Major depressive disorder, single episode, unspecified; G89.29 Other chronic pain; Z90.49 Acquired absence of other specified parts of digestive tract; Z98.890 Other specified postprocedural states; Z96.651 Presence of right artificial knee joint; Z88.2 Allergy status to sulfonamides; Z88.8 Allergy status to other drugs, medicaments and biological substances; Z88.5 Allergy status to narcotic agent; Z79.899 Other long term (current) drug therapy; Z82.3 Family history of stroke; Z82.49 Family history of ischemic heart disease and other diseases of the circulatory system
CPT/HCPCS: 49083; C1729

== ENCOUNTER 2019-10-18 07:29 | Day surgery (SDC) | payer MEDICARE, MEDICAID, OTHER ==
[2019-10-18] VITALS (8 sets, daily range): BP systolic 104–135; BP diastolic 62–74
[~2019-10-18] VITALS: Ht 154.9 cm; Wt 75.0 kg
[2019-10-18] MEDS ORDERED: normal saline 1000ml 1,000 ML IV PRN (07:55)
[2019-10-18] MEDS ORDERED: albumin 25% 100mL bottle x 1 IV PRN (07:55)
== END 2019-10-18 11:24 | disposition home or self-care (01) ==
LOC: SSTAY O 07:29
PROVIDERS: ATTEND Radiology Diagnostic Radiology
DX: R18.8 Other ascites (principal); K74.69 Other cirrhosis of liver; E78.5 Hyperlipidemia, unspecified; K21.9 Gastro-esophageal reflux disease without esophagitis; E11.9 Type 2 diabetes mellitus without complications; G89.29 Other chronic pain; F32.9 Major depressive disorder, single episode, unspecified; Z90.49 Acquired absence of other specified parts of digestive tract; Z96.651 Presence of right artificial knee joint; Z98.890 Other specified postprocedural states; Z88.2 Allergy status to sulfonamides; Z88.8 Allergy status to other drugs, medicaments and biological substances; Z88.5 Allergy status to narcotic agent; Z79.899 Other long term (current) drug therapy; Z82.3 Family history of stroke; Z82.49 Family history of ischemic heart disease and other diseases of the circulatory system
CPT/HCPCS: 49083; C1729

== ENCOUNTER 2019-11-08 06:38 | Day surgery (SDC) | payer MEDICARE, MEDICAID, OTHER ==
[~2019-11-08] VITALS: Ht 154.9 cm; Wt 75.9 kg
[2019-11-08] VITALS (7 sets, daily range): BP systolic 113–126; BP diastolic 60–81
[2019-11-08] MEDS ORDERED: normal saline 1000ml 1,000 ML IV PRN (07:05)
[2019-11-08] MEDS ORDERED: albumin 25% 100mL bottle x 1 IV PRN (07:05)
== END 2019-11-08 09:15 | disposition home or self-care (01) ==
LOC: SSTAY O 06:38
PROVIDERS: ATTEND Radiology Diagnostic Radiology
DX: R18.8 Other ascites (principal); K74.60 Unspecified cirrhosis of liver; K21.9 Gastro-esophageal reflux disease without esophagitis; E11.9 Type 2 diabetes mellitus without complications; F32.9 Major depressive disorder, single episode, unspecified; G89.29 Other chronic pain; Z90.49 Acquired absence of other specified parts of digestive tract; Z98.890 Other specified postprocedural states; Z96.651 Presence of right artificial knee joint; Z88.2 Allergy status to sulfonamides; Z88.5 Allergy status to narcotic agent; Z88.8 Allergy status to other drugs, medicaments and biological substances; Z79.899 Other long term (current) drug therapy; Z82.3 Family history of stroke; Z82.49 Family history of ischemic heart disease and other diseases of the circulatory system
CPT/HCPCS: 49083; P9047

== ENCOUNTER 2019-11-15 06:36 | Day surgery (SDC) | payer MEDICARE, MEDICAID, OTHER ==
[2019-11-15] VITALS (11 sets, daily range): BP systolic 98–128; BP diastolic 57–74
[~2019-11-15 06:36] MED LIST changes: -BENZ-49 PO
[2019-11-15] MEDS ORDERED: normal saline 1000ml 1,000 ML IV SCH (07:00)
[2019-11-15] MEDS ORDERED: [UNRECOGNIZED DRUG - CODE] TOP (07:19)
[2019-11-15] MEDS ORDERED: fentaNYL/PF 50MCG/1 ML 2ML syringe ONE ×2 (08:11→08:12)
[2019-11-15] MEDS ORDERED: midazolam 2 mg/2 ml injection ONE ×2 (08:11→08:12)
[2019-11-15] MEDS ORDERED: LIDOcaine 1%/PF 5ML 10 MG/ML VIAL ONE (08:11)
[2019-11-15] MEDS ORDERED: heparin 1,000unit/ml 10ml vial 10 ML ONE (08:11)
== END 2019-11-15 11:15 | disposition home or self-care (01) ==
LOC: SSTAY O 06:36
PROVIDERS: ATTEND Radiology Diagnostic Radiology
DX: T82.49XA Other complication of vascular dialysis catheter, initial encounter (principal); R18.8 Other ascites; Z91.040 Latex allergy status; Z88.8 Allergy status to other drugs, medicaments and biological substances; Z88.1 Allergy status to other antibiotic agents; Y83.8 Other surgical procedures as the cause of abnormal reaction of the patient, or of later complication, without mention of misadventure at the time of the procedure; Y92.89 Other specified places as the place of occurrence of the external cause
CPT/HCPCS: 36581; 49083; J1644; J2250; J3010

== ENCOUNTER 2019-11-20 08:18 | Day surgery (SDC) | payer MEDICARE, MEDICAID, OTHER ==
[~2019-11-20] VITALS: Ht 154.9 cm; Wt 72.0 kg
[~2019-11-20 08:18] MED LIST changes: +[UNRECOGNIZED DRUG - CODE] TOP
[2019-11-20 09:10] LABS: BASOPHILS # (AUTO) 0.1 X10'3 (0-0.2); BASOPHILS % (AUTO) 1.1 % (0-1); EOSINOPHILS # (AUTO) 0.2 X10'3 (0-0.9); EOSINOPHILS % (AUTO) 4.3 % (0-6); HEMATOCRIT 38.3 % (35.0-45.0); HEMOGLOBIN 12.6 g/dl (12.0-16.0); LYMPHOCYTES # (AUTO) 1.2 X10'3 (1.1-4.8); LYMPHOCYTES % (AUTO) 22.6 % (21-51); MEAN CORPUSCULAR HEMOGLOBIN 29.6 PG (27.0-31.0); MEAN CORPUSCULAR HGB CONC 32.9 g/dL (33.0-36.5); MEAN CORPUSCULAR VOLUME 89.9 FL (78-98); MEAN PLATELET VOLUME 9.5 FL (7.4-10.4); MONOCYTES # (AUTO) 0.4 X10'3 (0-0.9); MONOCYTES % (AUTO) 6.8 % (2-12); NEUTROPHILS # (AUTO) 3.4 X10'3 (1.8-7.7); NEUTROPHILS % (AUTO) 65.2 % (42-75); PLATELET COUNT 180 X10'3 (140-440); RED BLOOD COUNT 4.26 X10'6 (4.20-5.60); RED CELL DISTRIBUTION WIDTH 15.5 % (11.5-14.5); WHITE BLOOD COUNT 5.2 X10'3 (4.5-11.0)
[2019-11-20 09:13] VITALS: BP 88/41
[2019-11-20] MEDS ORDERED: iohexol 300 MG/1 ML 50ml polymer ONE (09:22)
[2019-11-20] MEDS ORDERED: LIDOcaine 1%/PF 5ML 10 MG/ML VIAL ONE (09:22)
[2019-11-20] MEDS ORDERED: heparin 1,000 UNITS/NS 500ml 500 ML ONE (09:22)
[2019-11-20] MEDS ORDERED: fentaNYL/PF 50MCG/1 ML 2ML syringe ONE (09:38)
[2019-11-20] MEDS ORDERED: midazolam 2 mg/2 ml injection ONE (09:38)
[2019-11-20] MEDS ORDERED: normal saline 1000ml 1,000 ML IV SCH (10:41)
[2019-11-20 10:45] VITALS: BP 86/50
[2019-11-20 11:00] VITALS: BP 95/49
[2019-11-20 11:15] VITALS: BP 89/47
[2019-11-20 11:30] VITALS: BP 86/47
[2019-11-20 11:45] VITALS: BP 85/47
== END 2019-11-20 11:50 | disposition home or self-care (01) ==
LOC: SSTAY O 08:18
PROVIDERS: ATTEND Radiology Diagnostic Radiology
DX: K74.69 Other cirrhosis of liver (principal); K76.89 Other specified diseases of liver; K75.89 Other specified inflammatory liver diseases; I25.2 Old myocardial infarction; Z88.5 Allergy status to narcotic agent; Z88.2 Allergy status to sulfonamides; Z88.8 Allergy status to other drugs, medicaments and biological substances; Z79.899 Other long term (current) drug therapy; Z86.73 Personal history of transient ischemic attack (TIA), and cerebral infarction without residual deficits
CPT/HCPCS: 36415; 37200; 75970; 76937; 82948; 85025; 99152; 99153; C1769; C1894; C2625; J1644; J2250; J3010; Q9967; A6213

== ENCOUNTER 2019-12-20 05:59 | Day surgery (SDC) | payer MEDICARE, MEDICAID, OTHER ==
[~2019-12-20] VITALS: Ht 154.9 cm; Wt 71.7 kg
[~2019-12-20 05:59] MED LIST changes: -GLUC1KIT IM
[2019-12-20] MEDS ORDERED: albumin 25% 100mL bottle x 1 IV PRN (06:15)
[2019-12-20] MEDS ORDERED: normal saline 1000ml 1,000 ML IV PRN (06:15)
[2019-12-20 07:02] VITALS: BP 134/69
== END 2019-12-20 08:45 | disposition home or self-care (01) ==
LOC: SSTAY O 05:59
PROVIDERS: ATTEND Radiology Diagnostic Radiology
DX: R18.8 Other ascites (principal); R14.0 Abdominal distension (gaseous); K74.60 Unspecified cirrhosis of liver; E78.5 Hyperlipidemia, unspecified; K21.9 Gastro-esophageal reflux disease without esophagitis; E11.9 Type 2 diabetes mellitus without complications; G89.29 Other chronic pain; I25.2 Old myocardial infarction; F32.9 Major depressive disorder, single episode, unspecified; Z90.49 Acquired absence of other specified parts of digestive tract; Z96.651 Presence of right artificial knee joint; Z98.890 Other specified postprocedural states; Z88.2 Allergy status to sulfonamides; Z88.8 Allergy status to other drugs, medicaments and biological substances; Z91.040 Latex allergy status; Z88.5 Allergy status to narcotic agent; Z79.899 Other long term (current) drug therapy; Z86.73 Personal history of transient ischemic attack (TIA), and cerebral infarction without residual deficits
CPT/HCPCS: 76705

== ENCOUNTER 2020-01-08 06:47 | Day surgery (SDC) | payer MEDICARE, MEDICAID, OTHER ==
[~2020-01-08] VITALS: Ht 152.4 cm; Wt 71.4 kg
[2020-01-08 07:10] VITALS: BP 101/46
[2020-01-08] MEDS ORDERED: albumin 25% 100mL bottle x 1 IV PRN (07:15)
[2020-01-08] MEDS ORDERED: normal saline 1000ml 1,000 ML IV PRN (07:15)
--- NOTE | 2020-01-08 08:30 | NUR ---
no fluid, procedure cancelled for today per PHIL Mazariegos.
== END 2020-01-08 09:04 | disposition home or self-care (01) ==
LOC: SSTAY O 06:47
PROVIDERS: ATTEND Radiology Vascular & Interventional Radiology
DX: R18.8 Other ascites (principal); K74.60 Unspecified cirrhosis of liver; E78.5 Hyperlipidemia, unspecified; K21.9 Gastro-esophageal reflux disease without esophagitis; E11.9 Type 2 diabetes mellitus without complications; G89.29 Other chronic pain; F32.9 Major depressive disorder, single episode, unspecified; Z98.890 Other specified postprocedural states; Z90.49 Acquired absence of other specified parts of digestive tract; Z96.651 Presence of right artificial knee joint; Z88.2 Allergy status to sulfonamides; Z88.1 Allergy status to other antibiotic agents; Z91.09 Other allergy status, other than to drugs and biological substances; Z88.8 Allergy status to other drugs, medicaments and biological substances; Z82.49 Family history of ischemic heart disease and other diseases of the circulatory system; Z82.3 Family history of stroke
CPT/HCPCS: 76705

== ENCOUNTER 2020-01-12 18:46 | Inpatient (IN) | payer MEDICARE, MEDICAID, OTHER ==
[~2020-01-12] VITALS: Ht 165.1 cm; Wt 68.3 kg
--- NOTE | 2020-01-12 18:49 | NUR ---
MD at bedside examing the pt. ED RN and RT also present/on standby.
[2020-01-12 18:56] LABS: ISTAT CREATININE 1.9 mg/dL (0.6-1.1); ISTAT HGB 14.3 g/dl (12.0-16.0); ISTAT IONIZED CALCIUM 1.18 mmol/L (1.03-1.32); ISTAT K 5.2 mmol/L (3.5-5.1); POC BUN/CREATININE RATIO 19.5 (6.6-38.0)
--- NOTE | 2020-01-12 19:00 | NUR ---
Patient's sister Hank phone number [phone]
--- NOTE | 2020-01-12 19:04 | NUR ---
Pt states she only wants information about condition given to her mother Juli; no other family members at this time.
--- NOTE | 2020-01-12 19:04 | NUR ---
To CT with staff radiation therapist on tele monitoring.
[2020-01-12 19:12] LABS: CLARITY,URINE CLEAR (Clear); COLOR,URINE YELLOW (Yellow); GLUCOSE, URINE NEGATIVE (Neg); KETONES,URINE NEGATIVE (Neg); LEUKOCYTE ESTERASE ,URINE NEGATIVE (Neg); NITRITES, URINE NEGATIVE (Neg); OCCULT BLOOD,URINE SMALL (Neg); PROTEIN,URINE >=300 mg/dl (Neg); UROBILINOGEN,URINE 0.2 E.U/dL (0.2-1.0)
[2020-01-12] MEDS ORDERED: HYDR-3972 PO (19:12)
[2020-01-12] MEDS ORDERED: URSO300C2 PO (19:12)
[2020-01-12] MEDS ORDERED: CLON-371 PO (19:12)
[2020-01-12] MEDS ORDERED: LANTUS SQ (19:12)
[2020-01-12] MEDS ORDERED: FOLI1TAB34 PO (19:12)
[2020-01-12] MEDS ORDERED: FURO40TA4 PO (19:12)
[2020-01-12] MEDS ORDERED: PREG150C46 PO (19:12)
[2020-01-12] MEDS ORDERED: CALC667C5 PO (19:12)
[2020-01-12] MEDS ORDERED: THYR90TA PO (19:12)
[2020-01-12] MEDS ORDERED: ROPI2TAB7 PO (19:12)
[2020-01-12 19:19] LABS: BASOPHILS # (AUTO) 0.1 X10'3 (0-0.2); BASOPHILS % (AUTO) 0.8 % (0-1); EOSINOPHILS # (AUTO) 0.2 X10'3 (0-0.9); EOSINOPHILS % (AUTO) 2.8 % (0-6); HEMATOCRIT 41.2 % (35.0-45.0); HEMOGLOBIN 13.4 g/dl (12.0-16.0); LYMPHOCYTES # (AUTO) 1.4 X10'3 (1.1-4.8); LYMPHOCYTES % (AUTO) 18.7 % (21-51); MEAN CORPUSCULAR HEMOGLOBIN 30.3 PG (27.0-31.0); MEAN CORPUSCULAR HGB CONC 32.5 g/dL (33.0-36.5); MEAN PLATELET VOLUME 9.5 FL (7.4-10.4); MONOCYTES # (AUTO) 0.5 X10'3 (0-0.9); MONOCYTES % (AUTO) 6.6 % (2-12); NEUTROPHILS # (AUTO) 5.4 X10'3 (1.8-7.7); NEUTROPHILS % (AUTO) 71.1 % (42-75); PLATELET COUNT 185 X10'3 (140-440); RED BLOOD COUNT 4.44 X10'6 (4.20-5.60); RED CELL DISTRIBUTION WIDTH 15.5 % (11.5-14.5); WHITE BLOOD COUNT 7.6 X10'3 (4.5-11.0)
[2020-01-12 19:22] LABS: ALANINE AMINOTRANSFERASE 59 U/L (12-78); ALBUMIN 3.4 G/DL (3.4-5.0); ALBUMIN/GLOBULIN RATIO 0.7 (1.1-1.5); ALKALINE PHOSPHATASE 455 IU/L (46-116); ANION GAP 10 (8-16); ASPARTATE AMINO TRANSFERASE 58 U/L (10-37); BILIRUBIN,TOTAL 0.5 MG/DL (0.1-1.0); BLOOD UREA NITROGEN 40 MG/DL (7-18); BUN/CREATININE RATIO 18.9 (6.6-38.0); CALCIUM 8.8 MG/DL (8.5-10.1); CHLORIDE 109 MMOL/L (99-107); CREATININE 2.12 MG/DL (0.40-0.90); GLUCOSE 113 MG/DL (70-104); POTASSIUM 5.3 MMOL/L (3.5-5.1); SODIUM 142 MMOL/L (135-145); TOTAL CARBON DIOXIDE 23.1 MMOL/L (24-32); TOTAL PROTEIN 8.1 G/DL (6.4-8.2); eGFR 24 ML/MIN
[2020-01-12 19:22] LABS: UA COLLECTION TYPE STRAIGHT CATH
[2020-01-12 19:23] LABS: BACTERIA,URINE FEW /HPF (Neg); SQUAMOUS EPITHELIAL CELL,UR FEW /LPF (FEW); URINE AMPHETAMINE SCREEN NEGATIVE (Neg); URINE BARBITUATE SCREEN NEGATIVE (Neg); URINE BENZODIAZEPINES SCREEN NEGATIVE (Neg); URINE CANNABINOID SCREEN NEGATIVE (Neg); URINE COCAINE SCREEN NEGATIVE (Neg); URINE METHADONE SCREEN NEGATIVE (Neg); URINE OPIATE SCREEN POSITIVE (Neg); URINE PHENCYCLIDINE SCREEN NEGATIVE (Neg); WBC,URINE 0-4 /HPF (0-4)
[2020-01-12] MEDS ORDERED: nitroGLYCERIN 0.4mg SUBLingual tab SL PRN ×2 (21:35→22:55)
[2020-01-12] MEDS ORDERED: aspirin 81mg tab.chew PO ONE (21:35)
[2020-01-12] MEDS ORDERED: oxyCODONE IR 5mg (immed. release) tablet PO ONE (21:50)
[2020-01-12] MEDS ORDERED: insulin glargine (Lantus) pen - multi-dose SQ SCH (22:25)
[2020-01-12] MEDS ORDERED: dextrose ORAL solution 15 GM/59 ML bottle PO PRN (22:35)
[2020-01-12] MEDS ORDERED: glucagon, human recombinant 1mg kit SUBCUT PRN (22:35)
[2020-01-12] MEDS ORDERED: acetaminophen 325mg tablet PO PRN (22:55)
[2020-01-12] MEDS ORDERED: ondansetron/PF 4mg/2ml inj IV PRN (22:55)
[2020-01-12] MEDS ORDERED: bisacodyl 10mg suppository rectal RC PRN (22:55)
[2020-01-12] MEDS: pregabalin 75mg capsule PO SCH (23:23)
[2020-01-12] MEDS: furosemide 40mg tablet PO SCH (23:24)
[2020-01-12] MEDS: ROPINIRole 1mg tablet PO SCH (23:25)
[2020-01-12] MEDS: Ursodiol 300mg capsule PO SCH (23:25)
[2020-01-12] MEDS: heparin, porcine 5000 units/ml vial SQ SCH (23:27)
--- NOTE | 2020-01-12 23:35 | NUR ---
received report from Cindi ALVAREZ ER, had opportunity to ask questions. awaiting arrival to floor.
--- NOTE | 2020-01-12 23:45 | NUR ---
pt arrived to unit with all belongings, VS stable, tele attached, pt oriented to floor, call light in reach, pt ambulated from hallway to bed.
[2020-01-12 23:58] VITALS: BP 141/75
[2020-01-13] VITALS (8 sets, daily range): BP systolic 93–137; BP diastolic 46–76
[2020-01-13] MEDS: dextrose ORAL solution 15 GM/59 ML bottle PO PRN ×2 (01:34→05:04)
--- NOTE | 2020-01-13 03:01 | NUR ---
pt complaining of pain pt states that she is having pain on her chest, upon examination pt has extreme reaction to very light touch, pt states that it is muscle pain and not heart pain. discussed with charge nurse and will continue to monitor.
[2020-01-13] MEDS: HYDROcodone/acetaminophen 10/325mg tab PO PRN ×4 (03:09→20:43)
[2020-01-13 04:04] LABS: BASOPHILS # (AUTO) 0.1 X10'3 (0-0.2); BASOPHILS % (AUTO) 0.9 % (0-1); EOSINOPHILS # (AUTO) 0.2 X10'3 (0-0.9); EOSINOPHILS % (AUTO) 3.7 % (0-6); HEMATOCRIT 39.5 % (35.0-45.0); HEMOGLOBIN 12.8 g/dl (12.0-16.0); LYMPHOCYTES # (AUTO) 1.6 X10'3 (1.1-4.8); LYMPHOCYTES % (AUTO) 29.3 % (21-51); MEAN CORPUSCULAR HEMOGLOBIN 30.4 PG (27.0-31.0); MEAN CORPUSCULAR HGB CONC 32.5 g/dL (33.0-36.5); MEAN CORPUSCULAR VOLUME 93.6 FL (78-98); MEAN PLATELET VOLUME 9.7 FL (7.4-10.4); MONOCYTES # (AUTO) 0.5 X10'3 (0-0.9); MONOCYTES % (AUTO) 8.5 % (2-12); NEUTROPHILS # (AUTO) 3.2 X10'3 (1.8-7.7); NEUTROPHILS % (AUTO) 57.6 % (42-75); PLATELET COUNT 160 X10'3 (140-440); RED BLOOD COUNT 4.22 X10'6 (4.20-5.60); RED CELL DISTRIBUTION WIDTH 15.9 % (11.5-14.5); WHITE BLOOD COUNT 5.5 X10'3 (4.5-11.0)
[2020-01-13 04:21] LABS: ALANINE AMINOTRANSFERASE 53 U/L (12-78); ALBUMIN 3.1 G/DL (3.4-5.0); ALBUMIN/GLOBULIN RATIO 0.7 (1.1-1.5); ALKALINE PHOSPHATASE 405 IU/L (46-116); ANION GAP 8 (8-16); ASPARTATE AMINO TRANSFERASE 56 U/L (10-37); BILIRUBIN,TOTAL 0.5 MG/DL (0.1-1.0); BLOOD UREA NITROGEN 41 MG/DL (7-18); BUN/CREATININE RATIO 19.3 (6.6-38.0); CALCIUM 8.5 MG/DL (8.5-10.1); CHLORIDE 110 MMOL/L (99-107); CREATININE 2.12 MG/DL (0.40-0.90); GLUCOSE 112 MG/DL (70-104); POTASSIUM 5.2 MMOL/L (3.5-5.1); SODIUM 143 MMOL/L (135-145); TOTAL CARBON DIOXIDE 25.5 MMOL/L (24-32); TOTAL PROTEIN 7.5 G/DL (6.4-8.2); eGFR 24 ML/MIN
[2020-01-13 04:25] LABS: CHOL/HDL RATIO 4.4 (0.00-4.99); CHOLESTEROL 233 MG/DL (0-200); HDL CHOLESTEROL 53 MG/DL (35-60); LDL CHOLESTEROL 147 MG/DL (50-100); MAGNESIUM 1.9 MG/DL (1.5-2.4); PHOSPHORUS 5.1 MG/DL (2.3-4.5); TRIGLYCERIDES 136 MG/DL (20-135)
[2020-01-13] MEDS: dextrose 50%-water 50ml dispensing syringe IV PRN (05:28)
--- NOTE | 2020-01-13 06:10 | NUR ---
Patient in room PCU 3014. I have received report from Dylon RN and had the opportunity to ask questions and assume patient care.
--- NOTE | 2020-01-13 06:11 | NUR ---
Problems reprioritized. Patient report given, questions answered & plan of care reviewed with Frances ALVAREZ.
[2020-01-13] MEDS: Ursodiol 300mg capsule PO SCH ×2 (07:31→20:41)
[2020-01-13] MEDS: folic acid/vitamin B complex w/vitamin C 0.8mg tablet PO SCH (07:31)
[2020-01-13] MEDS: docusate sod 100mg capsule PO SCH ×2 (07:32→20:41)
[2020-01-13] MEDS: calcium acetate 667mg (PhosLO) capsule PO SCH ×3 (07:32→17:59)
[2020-01-13] MEDS: furosemide 40mg tablet PO SCH ×2 (07:33→20:41)
[2020-01-13] MEDS: thyroid, pork 30mg tablet PO SCH (07:33)
[2020-01-13] MEDS: clonazePAM 0.5mg tablet PO SCH ×3 (07:33→20:41)
[2020-01-13] MEDS: heparin, porcine 5000 units/ml vial SQ SCH ×2 (07:34→16:29)
[2020-01-13] MEDS: aspirin 81mg tab.chew PO SCH (07:36)
[2020-01-13] MEDS ORDERED: heparin 1,000unit/ml 10ml vial 10 ML IV ONE (09:36)
[2020-01-13] MEDS ORDERED: normal saline 1000ml 250 ML IV PRN (09:36)
[2020-01-13] MEDS ORDERED: heparin 1,000 units/ml 10ml inj IV ONE (09:40)
--- NOTE | 2020-01-13 09:48 | NUR ---
Chest discomfort is assessed, Scheduled EKG is completed, Labs are reviewed with provider. called nursing to get update and had his concerns addressed. Provider is monitoring the peritoneal dialysis treatment and will address any issues with its effectiveness, also Provider will contact Migel with any updates.
--- NOTE | 2020-01-13 11:53 | NUR ---
DM Consult: Pt A1C less than 7 and not appropriate for DM ed at this time. Addendum: 01/13/20 at [address] Amended: Links added.
--- NOTE | 2020-01-13 18:30 | NUR ---
Patient in room PCU 3014. I have received report from Frances ALVAREZ and had the opportunity to ask questions and assume patient care.
[2020-01-13] MEDS: pregabalin 75mg capsule PO SCH (20:42)
[2020-01-13] MEDS: ROPINIRole 1mg tablet PO SCH (20:43)
[2020-01-13] MEDS ORDERED: QUET300T19 PO (20:49)
[2020-01-13] MEDS: insulin glargine (Lantus) pen - multi-dose SQ SCH (21:00)
[2020-01-13] MEDS: QUEtiapine 25mg tablet PO SCH (21:34)
[2020-01-13] MEDS: quetiapine 100mg tablet PO SCH (21:34)
[2020-01-14] VITALS (7 sets, daily range): BP systolic 96–166; BP diastolic 36–66
[2020-01-14] MEDS: heparin, porcine 5000 units/ml vial SQ SCH ×3 (00:29→15:15)
--- NOTE | 2020-01-14 06:07 | NUR ---
Problems reprioritized. Patient report given, questions answered & plan of care reviewed with Maritza ALVAREZ.
[2020-01-14 06:26] LABS: EOSINOPHILS # (AUTO) 0.3 X10'3 (0-0.9); EOSINOPHILS % (AUTO) 6.9 % (0-6); HEMATOCRIT 36.9 % (35.0-45.0); HEMOGLOBIN 12.1 g/dl (12.0-16.0); LYMPHOCYTES # (AUTO) 1.6 X10'3 (1.1-4.8); LYMPHOCYTES % (AUTO) 37.8 % (21-51); MEAN CORPUSCULAR HEMOGLOBIN 30.5 PG (27.0-31.0); MEAN CORPUSCULAR HGB CONC 32.8 g/dL (33.0-36.5); MEAN CORPUSCULAR VOLUME 93.1 FL (78-98); MEAN PLATELET VOLUME 9.7 FL (7.4-10.4); MONOCYTES # (AUTO) 0.4 X10'3 (0-0.9); NEUTROPHILS # (AUTO) 1.9 X10'3 (1.8-7.7); NEUTROPHILS % (AUTO) 45.3 % (42-75); PLATELET COUNT 153 X10'3 (140-440); RED BLOOD COUNT 3.97 X10'6 (4.20-5.60); RED CELL DISTRIBUTION WIDTH 15.6 % (11.5-14.5); WHITE BLOOD COUNT 4.1 X10'3 (4.5-11.0)
--- NOTE | 2020-01-14 06:43 | NUR ---
Patient in room PCU 3014. I have received report from Sara ALVAREZ and had the opportunity to ask questions and assume patient care.
[2020-01-14 06:45] LABS: ALANINE AMINOTRANSFERASE 42 U/L (12-78); ALBUMIN 2.6 G/DL (3.4-5.0); ALBUMIN/GLOBULIN RATIO 0.7 (1.1-1.5); ALKALINE PHOSPHATASE 330 IU/L (46-116); ANION GAP 8 (8-16); ASPARTATE AMINO TRANSFERASE 41 U/L (10-37); BILIRUBIN,TOTAL 0.3 MG/DL (0.1-1.0); BLOOD UREA NITROGEN 51 MG/DL (7-18); BUN/CREATININE RATIO 21.8 (6.6-38.0); CALCIUM 8.3 MG/DL (8.5-10.1); CHLORIDE 107 MMOL/L (99-107); CREATININE 2.34 MG/DL (0.40-0.90); GLUCOSE 77 MG/DL (70-104); MAGNESIUM 1.8 MG/DL (1.5-2.4); PHOSPHORUS 5.5 MG/DL (2.3-4.5); POTASSIUM 5.1 MMOL/L (3.5-5.1); SODIUM 139 MMOL/L (135-145); TOTAL CARBON DIOXIDE 24.4 MMOL/L (24-32); TOTAL PROTEIN 6.5 G/DL (6.4-8.2); eGFR 21 ML/MIN
[2020-01-14] MEDS: dextrose 50%-water 50ml dispensing syringe IV PRN ×4 (06:58→08:21)
--- NOTE | 2020-01-14 07:07 | NUR ---
Blood sugar was 72 this AM, patient reports feeling "a little shakey." No other symptoms. Recheck of blood sugar was 35, hypoglycemic protocol followed. Will recheck in 15 minutes.
[2020-01-14] MEDS: docusate sod 100mg capsule PO SCH ×2 (07:31→20:00)
[2020-01-14] MEDS: calcium acetate 667mg (PhosLO) capsule PO SCH ×3 (07:31→17:54)
[2020-01-14] MEDS: thyroid, pork 30mg tablet PO SCH (07:31)
[2020-01-14] MEDS: folic acid/vitamin B complex w/vitamin C 0.8mg tablet PO SCH (07:31)
[2020-01-14] MEDS: Ursodiol 300mg capsule PO SCH ×2 (07:31→20:43)
[2020-01-14] MEDS: aspirin 81mg tab.chew PO SCH (07:31)
[2020-01-14] MEDS: furosemide 40mg tablet PO SCH ×2 (07:32→20:44)
[2020-01-14] MEDS: clonazePAM 0.5mg tablet PO SCH ×3 (07:32→20:46)
[2020-01-14] MEDS ORDERED: normal saline 1000ml 250 ML IV PRN (08:00)
[2020-01-14] MEDS ORDERED: heparin 1,000 units/ml 10ml inj HE ONE (08:00)
[2020-01-14] MEDS ORDERED: LIDOcaine 1% (10mg/ml) 2ml vial SQ ONE (08:00)
[2020-01-14] MEDS ORDERED: heparin 1,000 units/ml 10ml inj IV ONE (08:00)
--- NOTE | 2020-01-14 08:13 | NUR ---
blood sugar 138, Dr. Torres notified of low trends and updated on V/S monitoring. New orders to start D100 @ 100 ml/HR, obtain B.C. X 2. Orders implemented.
[2020-01-14] MEDS: sodium chloride inj. 154 MEQ in Dextrose 10%-water IV solution 961.5 ML IV SCH ×2 (09:20→19:28)
--- NOTE | 2020-01-14 13:21 | NUR ---
Blood sugar is stable, pt. is asymtomatic. Will continue to monitor closely. Blood culture has been drawn. UA is pending as the patient is oliguric. Pt. and staff aware that a sample is needed.
[2020-01-14] MEDS: HYDROcodone/acetaminophen 10/325mg tab PO PRN ×2 (15:19→20:46)
--- NOTE | 2020-01-14 18:30 | NUR ---
Patient in room PCU 3014. I have received report from Melia ALVAREZ and had the opportunity to ask questions and assume patient care.
--- NOTE | 2020-01-14 18:32 | NUR ---
Problems reprioritized. Patient report given, questions answered & plan of care reviewed with meron ALVAREZ. Pt. getting dialysis right now, offers no complaints.
[2020-01-14] MEDS: ROPINIRole 1mg tablet PO SCH (20:44)
[2020-01-14] MEDS: pregabalin 75mg capsule PO SCH (20:46)
[2020-01-14] MEDS: QUEtiapine 25mg tablet PO SCH (20:47)
[2020-01-14] MEDS: quetiapine 100mg tablet PO SCH (20:47)
[2020-01-14] MEDS: insulin glargine (Lantus) pen - multi-dose SQ SCH (21:00)
[2020-01-15] MEDS: heparin, porcine 5000 units/ml vial SQ SCH ×3 (00:23→16:34)
[2020-01-15 02:30] VITALS: BP 88/37
[2020-01-15] MEDS: sodium chloride inj. 154 MEQ in Dextrose 10%-water IV solution 961.5 ML IV SCH (05:15)
[2020-01-15 06:09] LABS: BASOPHILS % (AUTO) 1.1 % (0-1); EOSINOPHILS # (AUTO) 0.2 X10'3 (0-0.9); EOSINOPHILS % (AUTO) 6.4 % (0-6); HEMATOCRIT 36.2 % (35.0-45.0); LYMPHOCYTES # (AUTO) 1.4 X10'3 (1.1-4.8); LYMPHOCYTES % (AUTO) 37.3 % (21-51); MEAN CORPUSCULAR HEMOGLOBIN 30.9 PG (27.0-31.0); MEAN CORPUSCULAR HGB CONC 33.1 g/dL (33.0-36.5); MEAN CORPUSCULAR VOLUME 93.3 FL (78-98); MEAN PLATELET VOLUME 9.5 FL (7.4-10.4); MONOCYTES # (AUTO) 0.4 X10'3 (0-0.9); MONOCYTES % (AUTO) 10.6 % (2-12); NEUTROPHILS # (AUTO) 1.6 X10'3 (1.8-7.7); NEUTROPHILS % (AUTO) 44.6 % (42-75); PLATELET COUNT 144 X10'3 (140-440); RED BLOOD COUNT 3.88 X10'6 (4.20-5.60); RED CELL DISTRIBUTION WIDTH 15.4 % (11.5-14.5); WHITE BLOOD COUNT 3.7 X10'3 (4.5-11.0)
[2020-01-15 06:22] LABS: ALANINE AMINOTRANSFERASE 36 U/L (12-78); ALBUMIN 2.6 G/DL (3.4-5.0); ALBUMIN/GLOBULIN RATIO 0.7 (1.1-1.5); ALKALINE PHOSPHATASE 304 IU/L (46-116); ANION GAP 5 (8-16); ASPARTATE AMINO TRANSFERASE 32 U/L (10-37); BILIRUBIN,TOTAL 0.3 MG/DL (0.1-1.0); BLOOD UREA NITROGEN 29 MG/DL (7-18); BUN/CREATININE RATIO 14.2 (6.6-38.0); CALCIUM 8.4 MG/DL (8.5-10.1); CHLORIDE 104 MMOL/L (99-107); CREATININE 2.04 MG/DL (0.40-0.90); GLUCOSE 100 MG/DL (70-104); MAGNESIUM 1.8 MG/DL (1.5-2.4); PHOSPHORUS 4.4 MG/DL (2.3-4.5); POTASSIUM 4.5 MMOL/L (3.5-5.1); SODIUM 137 MMOL/L (135-145); TOTAL PROTEIN 6.6 G/DL (6.4-8.2); eGFR 25 ML/MIN
--- NOTE | 2020-01-15 06:28 | NUR ---
Problems reprioritized. Patient report given, questions answered & plan of care reviewed with Maritza ALVAREZ.
--- NOTE | 2020-01-15 06:38 | NUR ---
Patient in room PCU 3014. I have received report from Sara ALVAREZ and had the opportunity to ask questions and assume patient care.
[2020-01-15 07:00] VITALS: BP 108/50
[2020-01-15] MEDS: dextrose ORAL solution 15 GM/59 ML bottle PO PRN ×2 (07:06→10:35)
[2020-01-15] MEDS: docusate sod 100mg capsule PO SCH ×2 (07:48→20:00)
[2020-01-15] MEDS: folic acid/vitamin B complex w/vitamin C 0.8mg tablet PO SCH (07:48)
[2020-01-15] MEDS: Ursodiol 300mg capsule PO SCH ×2 (07:48→20:28)
[2020-01-15] MEDS: thyroid, pork 30mg tablet PO SCH (07:48)
[2020-01-15] MEDS: clonazePAM 0.5mg tablet PO SCH ×3 (07:48→20:31)
[2020-01-15] MEDS: furosemide 40mg tablet PO SCH ×2 (07:49→20:31)
[2020-01-15] MEDS: aspirin 81mg tab.chew PO SCH (07:49)
[2020-01-15] MEDS: calcium acetate 667mg (PhosLO) capsule PO SCH ×3 (07:49→17:36)
[2020-01-15 08:00] VITALS: BP_SYST 124; BP_SYST 126; BP_SYST 136; BP_DIAS 56; BP_DIAS 58; BP_DIAS 62
[2020-01-15] MEDS ORDERED: normal saline 1000ml 1,000 ML IVB ONE (08:00)
--- NOTE | 2020-01-15 08:02 | NUR ---
notified DR. Torres of blood sugar trends, BP trends t/o evening or night nurse supervisor and complaints of cold/purple finger tips. Lung sounds are clear. Received orders to give 1 liter bolus X1, recheck lung sounds and assess fingers, if still cold and purple and LS are clear, repeat another bolus.
[2020-01-15] MEDS: Dextrose 10%-water IV solution 1,000 ML IV SCH ×2 (10:20→21:39)
[2020-01-15 11:00] VITALS: BP 124/53
[2020-01-15] MEDS ORDERED: heparin 1,000unit/ml 10ml vial 10 ML IV ONE (11:37)
[2020-01-15] MEDS ORDERED: normal saline 1000ml 250 ML IV PRN (11:37)
[2020-01-15] MEDS ORDERED: heparin 1,000 units/ml 10ml inj IV ONE (11:40)
[2020-01-15 11:47] LABS: CLARITY,URINE CLEAR (Clear); COLOR,URINE YELLOW (Yellow); GLUCOSE, URINE NEGATIVE (Neg); KETONES,URINE NEGATIVE (Neg); LEUKOCYTE ESTERASE ,URINE NEGATIVE (Neg); NITRITES, URINE NEGATIVE (Neg); OCCULT BLOOD,URINE NEGATIVE (Neg); PH,URINE 6.5 (4.8-8.0); PROTEIN,URINE 30 mg/dl (Neg); UROBILINOGEN,URINE 0.2 E.U/dL (0.2-1.0)
[2020-01-15 12:09] LABS: UA COLLECTION TYPE CLN CATCH MIDSTREAM
[2020-01-15] MEDS: HYDROcodone/acetaminophen 10/325mg tab PO PRN ×2 (12:10→20:33)
[2020-01-15 12:22] LABS: SQUAMOUS EPITHELIAL CELL,UR FEW /LPF (FEW)
[2020-01-15 12:23] LABS: BACTERIA,URINE FEW /HPF (Neg); RBC,URINE 0-2 /HPF (0-2); TRANSITIONAL EPI CELLS,URINE FEW /HPF; WBC,URINE 0-4 /HPF (0-4)
--- NOTE | 2020-01-15 14:35 | NUR ---
Patient in room PCU 3014. I have received report from Honorio ALVAREZ and had the opportunity to ask questions and assume patient care. Awaiting arrival of patient.
[2020-01-15 15:00] VITALS: BP 115/55
--- NOTE | 2020-01-15 18:29 | NUR ---
dump truck operator error above
--- NOTE | 2020-01-15 18:31 | NUR ---
Problems reprioritized. Patient report given, questions answered & plan of care reviewed with Sara ALVAREZ. Pt. resting comfortably, stated she is feeling better, thanked nursing for care provided.
[2020-01-15] MEDS: ROPINIRole 1mg tablet PO SCH (20:32)
[2020-01-15] MEDS: QUEtiapine 25mg tablet PO SCH (20:32)
[2020-01-15] MEDS: pregabalin 75mg capsule PO SCH (20:32)
[2020-01-15] MEDS: quetiapine 100mg tablet PO SCH (20:32)
[2020-01-15] MEDS: insulin glargine (Lantus) pen - multi-dose SQ SCH (21:00)
[2020-01-15 22:00] VITALS: BP 100/46
[2020-01-16] MEDS: heparin, porcine 5000 units/ml vial SQ SCH ×4 (00:16→23:51)
--- NOTE | 2020-01-16 00:56 | NUR ---
last few nights patient's blood sugar has been dropping in the ams. patient wanted her sugar checked overnight because of this. d10w running @100ml/hr
[2020-01-16 02:00] VITALS: BP 118/56
[2020-01-16] MEDS ORDERED: normal saline 1000ml 250 ML IV PRN (03:53)
[2020-01-16] MEDS ORDERED: heparin 1,000unit/ml 10ml vial 10 ML IV ONE ×2 (03:53→08:00)
[2020-01-16] MEDS ORDERED: heparin 1,000 units/ml 10ml inj IV ONE ×2 (03:55→08:00)
[2020-01-16] MEDS ORDERED: heparin 1,000 units/ml 10ml inj HE ONE (04:00)
[2020-01-16 05:42] LABS: EOSINOPHILS # (AUTO) 0.3 X10'3 (0-0.9); EOSINOPHILS % (AUTO) 6.9 % (0-6); HEMATOCRIT 34.4 % (35.0-45.0); HEMOGLOBIN 11.4 g/dl (12.0-16.0); LYMPHOCYTES # (AUTO) 1.3 X10'3 (1.1-4.8); LYMPHOCYTES % (AUTO) 33.5 % (21-51); MEAN CORPUSCULAR HGB CONC 33.3 g/dL (33.0-36.5); MEAN CORPUSCULAR VOLUME 93.2 FL (78-98); MEAN PLATELET VOLUME 9.3 FL (7.4-10.4); MONOCYTES # (AUTO) 0.5 X10'3 (0-0.9); MONOCYTES % (AUTO) 11.5 % (2-12); NEUTROPHILS # (AUTO) 1.9 X10'3 (1.8-7.7); NEUTROPHILS % (AUTO) 47.1 % (42-75); PLATELET COUNT 145 X10'3 (140-440); RED BLOOD COUNT 3.69 X10'6 (4.20-5.60); RED CELL DISTRIBUTION WIDTH 15.3 % (11.5-14.5)
[2020-01-16 06:01] LABS: ALANINE AMINOTRANSFERASE 33 U/L (12-78); ALBUMIN 2.5 G/DL (3.4-5.0); ALBUMIN/GLOBULIN RATIO 0.7 (1.1-1.5); ALKALINE PHOSPHATASE 290 IU/L (46-116); ANION GAP 5 (8-16); ASPARTATE AMINO TRANSFERASE 31 U/L (10-37); BILIRUBIN,TOTAL 0.3 MG/DL (0.1-1.0); BLOOD UREA NITROGEN 36 MG/DL (7-18); BUN/CREATININE RATIO 18.8 (6.6-38.0); CALCIUM 8.1 MG/DL (8.5-10.1); CHLORIDE 102 MMOL/L (99-107); CREATININE 1.92 MG/DL (0.40-0.90); GLUCOSE 147 MG/DL (70-104); MAGNESIUM 1.6 MG/DL (1.5-2.4); PHOSPHORUS 4.1 MG/DL (2.3-4.5); POTASSIUM 4.6 MMOL/L (3.5-5.1); SODIUM 133 MMOL/L (135-145); TOTAL CARBON DIOXIDE 26.4 MMOL/L (24-32); TOTAL PROTEIN 6.3 G/DL (6.4-8.2); eGFR 26 ML/MIN
--- NOTE | 2020-01-16 06:22 | NUR ---
Patient in room PCU 3014. I have received report from KIM Ruiz and had the opportunity to ask questions and assume patient care. Patient asleep in bed and in no acute distress.
--- NOTE | 2020-01-16 06:25 | NUR ---
Problems reprioritized. Patient report given, questions answered & plan of care reviewed with Neyda ALVAREZ.
[2020-01-16 07:00] VITALS: BP 128/59
[2020-01-16] MEDS: Dextrose 10%-water IV solution 1,000 ML IV SCH ×3 (07:21→17:51)
[2020-01-16] MEDS: furosemide 40mg tablet PO SCH ×2 (07:22→20:00)
[2020-01-16] MEDS: aspirin 81mg tab.chew PO SCH (07:22)
[2020-01-16] MEDS: docusate sod 100mg capsule PO SCH ×2 (07:23→20:00)
[2020-01-16] MEDS: Ursodiol 300mg capsule PO SCH ×2 (07:23→20:45)
[2020-01-16] MEDS: folic acid/vitamin B complex w/vitamin C 0.8mg tablet PO SCH (07:23)
[2020-01-16] MEDS: calcium acetate 667mg (PhosLO) capsule PO SCH ×3 (07:24→17:50)
[2020-01-16] MEDS: thyroid, pork 30mg tablet PO SCH (07:24)
[2020-01-16] MEDS: clonazePAM 0.5mg tablet PO SCH ×3 (07:25→20:45)
--- NOTE | 2020-01-16 08:35 | NUR ---
Patient fell in the bathroom and is currently on Heparin. Patient complains of back pain and states that she fell on her back when she fell. Patient was sitting up in the shower and in tears. Patient had on nonskid socks. Neuro status was unchanged. Patient was able to ambulate from bathroom back to bed after the fall. Patient states that she did not hit her head, and that she only fell on her back and that is her only complaint. Talked to Dr. Torres when he rounded on the patient and miscellaneous nursing orders were put in for fall risk and for the patient to get out of bed with nursing only.
--- NOTE | 2020-01-16 09:21 | NUR ---
Orders put in for a miscellaneous nursing order for patient to be a fall risk and to get out of bed with nursing only per Dr. Torres.
--- NOTE | 2020-01-16 10:48 | NUR ---
Patient complains of back pain, [place] 10 offered as pain medication but patient refused.
--- NOTE | 2020-01-16 10:57 | NUR ---
Initial: Pt BIB EMS for ALOC, admit for syncope and elevated troponin with hx ESRD on HD and liver cirrhosis with ascites. Pt on a renal CHO controlled diet documented with 75-100% PO intake meeting nutrient needs. Pt receiving D10 at 100 mL/hr (816 kcal) for low blood sugar, down to 35 8/10, BG range 63-147 over the last 24 hrs. LBM 01/14, receiving routine bowel care. No nutrition diagnosis at this time. Will continue to follow. Recommendations: 1) Continue renal CHO controlled diet 2) Monitor need for additional protein 3) Continue routine Phos binder 4) Routine bowel care 5) Scaled weights per rx Addendum: 01/16/20 at [address] Amended: Links added.
--- NOTE | 2020-01-16 11:54 | NUR ---
Patient refused 1100 vital signs to be taken.
[2020-01-16] MEDS: HYDROcodone/acetaminophen 10/325mg tab PO PRN ×3 (12:17→19:59)
[2020-01-16 15:00] VITALS: BP 98/52
--- NOTE | 2020-01-16 16:37 | NUR ---
Orders put in for lumbar x-ray, and PT evaluation and treat per Dr. Torres.
--- NOTE | 2020-01-16 17:23 | NUR ---
Paged x-ray that patient is ready for x-ray.
--- NOTE | 2020-01-16 17:27 | NUR ---
Patient left for x-ray.
--- NOTE | 2020-01-16 17:31 | NUR ---
patient refused orthostatic vitals being done this shift.
--- NOTE | 2020-01-16 17:42 | NUR ---
Patient back from x-ray.
[2020-01-16 18:00] VITALS: BP 126/67
--- NOTE | 2020-01-16 18:21 | NUR ---
Problems reprioritized. Patient report given, questions answered & plan of care reviewed with KIM Cobian. Patient stable at transfer of care.
--- NOTE | 2020-01-16 18:50 | NUR ---
Patient in room PCU 3014. I have received report from Neyda ALVAREZ and had the opportunity to ask questions and assume patient care.
[2020-01-16] MEDS: quetiapine 100mg tablet PO SCH (20:44)
[2020-01-16] MEDS: ROPINIRole 1mg tablet PO SCH (20:44)
[2020-01-16] MEDS: pregabalin 75mg capsule PO SCH (20:44)
[2020-01-16] MEDS: QUEtiapine 25mg tablet PO SCH (20:45)
[2020-01-16] MEDS: insulin glargine (Lantus) pen - multi-dose SQ SCH (21:00)
[2020-01-16 22:00] VITALS: BP 117/58
[2020-01-17] VITALS (7 sets, daily range): BP systolic 96–196; BP diastolic 38–80
[2020-01-17] MEDS: HYDROcodone/acetaminophen 10/325mg tab PO PRN ×2 (04:41→17:03)
--- NOTE | 2020-01-17 06:03 | NUR ---
Problems reprioritized. Patient report given, questions answered & plan of care reviewed with Neyda ALVAREZ.
[2020-01-17 06:15] LABS: BASOPHILS % (AUTO) 0.7 % (0-1); EOSINOPHILS # (AUTO) 0.2 X10'3 (0-0.9); EOSINOPHILS % (AUTO) 5.4 % (0-6); HEMATOCRIT 35.5 % (35.0-45.0); HEMOGLOBIN 11.8 g/dl (12.0-16.0); LYMPHOCYTES # (AUTO) 0.9 X10'3 (1.1-4.8); LYMPHOCYTES % (AUTO) 23.7 % (21-51); MEAN CORPUSCULAR HEMOGLOBIN 31.2 PG (27.0-31.0); MEAN CORPUSCULAR HGB CONC 33.3 g/dL (33.0-36.5); MEAN CORPUSCULAR VOLUME 93.4 FL (78-98); MEAN PLATELET VOLUME 9.5 FL (7.4-10.4); MONOCYTES # (AUTO) 0.3 X10'3 (0-0.9); MONOCYTES % (AUTO) 7.9 % (2-12); NEUTROPHILS # (AUTO) 2.4 X10'3 (1.8-7.7); NEUTROPHILS % (AUTO) 62.3 % (42-75); PLATELET COUNT 132 X10'3 (140-440); RED CELL DISTRIBUTION WIDTH 15.2 % (11.5-14.5); WHITE BLOOD COUNT 3.9 X10'3 (4.5-11.0)
--- NOTE | 2020-01-17 06:20 | NUR ---
Patient in room PCU 3014. I have received report from KIM Cobian and had the opportunity to ask questions and assume patient care. Patient awake in bed, complaining of pain and in no acute distress.
[2020-01-17 06:26] LABS: ALANINE AMINOTRANSFERASE 36 U/L (12-78); ALBUMIN 2.6 G/DL (3.4-5.0); ALBUMIN/GLOBULIN RATIO 0.7 (1.1-1.5); ALKALINE PHOSPHATASE 282 IU/L (46-116); ANION GAP 6 (8-16); ASPARTATE AMINO TRANSFERASE 39 U/L (10-37); BILIRUBIN,TOTAL 0.4 MG/DL (0.1-1.0); BLOOD UREA NITROGEN 20 MG/DL (7-18); CALCIUM 8.4 MG/DL (8.5-10.1); CHLORIDE 96 MMOL/L (99-107); CREATININE 1.82 MG/DL (0.40-0.90); GLUCOSE 121 MG/DL (70-104); MAGNESIUM 1.7 MG/DL (1.5-2.4); PHOSPHORUS 3.6 MG/DL (2.3-4.5); POTASSIUM 4.2 MMOL/L (3.5-5.1); SODIUM 131 MMOL/L (135-145); TOTAL CARBON DIOXIDE 28.6 MMOL/L (24-32); TOTAL PROTEIN 6.6 G/DL (6.4-8.2); eGFR 28 ML/MIN
[2020-01-17] MEDS: thyroid, pork 30mg tablet PO SCH (07:38)
[2020-01-17] MEDS: furosemide 40mg tablet PO SCH ×2 (07:39→21:46)
[2020-01-17] MEDS: docusate sod 100mg capsule PO SCH ×2 (07:39→21:45)
[2020-01-17] MEDS: clonazePAM 0.5mg tablet PO SCH ×3 (07:39→21:48)
[2020-01-17] MEDS: Ursodiol 300mg capsule PO SCH ×2 (07:40→21:46)
[2020-01-17] MEDS: aspirin 81mg tab.chew PO SCH (07:40)
[2020-01-17] MEDS: calcium acetate 667mg (PhosLO) capsule PO SCH ×3 (07:40→17:03)
[2020-01-17] MEDS: folic acid/vitamin B complex w/vitamin C 0.8mg tablet PO SCH (07:40)
[2020-01-17] MEDS: heparin, porcine 5000 units/ml vial SQ SCH ×2 (07:41→17:04)
[2020-01-17] MEDS ORDERED: heparin 1,000unit/ml 10ml vial 10 ML IV ONE (09:32)
[2020-01-17] MEDS ORDERED: normal saline 1000ml 250 ML IV PRN (09:32)
[2020-01-17] MEDS ORDERED: heparin 1,000 units/ml 10ml inj IV ONE (09:35)
[2020-01-17] MEDS: LIDOcaine 5% patch TP SCH (09:55)
[2020-01-17] MEDS: Dextrose 10%-water IV solution 1,000 ML IV SCH ×2 (12:20→14:11)
--- NOTE | 2020-01-17 18:00 | NUR ---
Patient was able to ambulate with PT today, complained of back pain and was unable to sit up in bed. Patient was able to sit up in bed on her own as well as in the chair by the window this shift. Patient stated that the lidoderm patches haven't helped at all with her back pain as well as [place] for pain. Will continue to monitor.
--- NOTE | 2020-01-17 18:18 | NUR ---
Problems reprioritized. Patient report given, questions answered & plan of care reviewed with KIM Lowe. Patient stable at transfer of care.
--- NOTE | 2020-01-17 18:20 | NUR ---
Patient in room PCU 3014. I have received report from GEORGINA ALVAREZ and had the opportunity to ask questions and assume patient care.
[2020-01-17] MEDS: insulin glargine (Lantus) pen - multi-dose SQ SCH (21:00)
[2020-01-17] MEDS: QUEtiapine 25mg tablet PO SCH (21:43)
[2020-01-17] MEDS: quetiapine 100mg tablet PO SCH (21:44)
[2020-01-17] MEDS: ROPINIRole 1mg tablet PO SCH (21:45)
[2020-01-17] MEDS: pregabalin 75mg capsule PO SCH (21:48)
--- NOTE | 2020-01-17 23:00 | NUR ---
Pt declined orthostatic vitals.
[2020-01-18] VITALS (8 sets, daily range): BP systolic 90–159; BP diastolic 42–88
[2020-01-18] MEDS: heparin, porcine 5000 units/ml vial SQ SCH ×4 (00:22→23:42)
[2020-01-18] MEDS: Dextrose 10%-water IV solution 1,000 ML IV SCH ×2 (00:22→13:12)
[2020-01-18] MEDS ORDERED: heparin 1,000 units/ml 10ml inj IV ONE (00:25)
[2020-01-18] MEDS: HYDROcodone/acetaminophen 10/325mg tab PO PRN ×4 (05:37→21:56)
[2020-01-18 06:01] LABS: BASOPHILS % (AUTO) 0.9 % (0-1); EOSINOPHILS # (AUTO) 0.2 X10'3 (0-0.9); EOSINOPHILS % (AUTO) 4.7 % (0-6); HEMATOCRIT 38.2 % (35.0-45.0); HEMOGLOBIN 12.6 g/dl (12.0-16.0); LYMPHOCYTES # (AUTO) 1.1 X10'3 (1.1-4.8); LYMPHOCYTES % (AUTO) 25.5 % (21-51); MEAN CORPUSCULAR HEMOGLOBIN 30.3 PG (27.0-31.0); MEAN CORPUSCULAR HGB CONC 32.9 g/dL (33.0-36.5); MEAN PLATELET VOLUME 9.5 FL (7.4-10.4); MONOCYTES # (AUTO) 0.5 X10'3 (0-0.9); MONOCYTES % (AUTO) 11.1 % (2-12); NEUTROPHILS # (AUTO) 2.5 X10'3 (1.8-7.7); NEUTROPHILS % (AUTO) 57.8 % (42-75); PLATELET COUNT 138 X10'3 (140-440); RED BLOOD COUNT 4.15 X10'6 (4.20-5.60); RED CELL DISTRIBUTION WIDTH 15.2 % (11.5-14.5); WHITE BLOOD COUNT 4.4 X10'3 (4.5-11.0)
[2020-01-18 06:22] LABS: ALANINE AMINOTRANSFERASE 36 U/L (12-78); ALBUMIN 2.8 G/DL (3.4-5.0); ALBUMIN/GLOBULIN RATIO 0.7 (1.1-1.5); ALKALINE PHOSPHATASE 304 IU/L (46-116); ANION GAP 6 (8-16); ASPARTATE AMINO TRANSFERASE 37 U/L (10-37); BILIRUBIN,TOTAL 0.5 MG/DL (0.1-1.0); BLOOD UREA NITROGEN 25 MG/DL (7-18); BUN/CREATININE RATIO 14.8 (6.6-38.0); CALCIUM 8.8 MG/DL (8.5-10.1); CHLORIDE 94 MMOL/L (99-107); CREATININE 1.69 MG/DL (0.40-0.90); GLUCOSE 136 MG/DL (70-104); MAGNESIUM 1.5 MG/DL (1.5-2.4); PHOSPHORUS 3.4 MG/DL (2.3-4.5); POTASSIUM 4.3 MMOL/L (3.5-5.1); SODIUM 127 MMOL/L (135-145); TOTAL CARBON DIOXIDE 27.2 MMOL/L (24-32); TOTAL PROTEIN 7.1 G/DL (6.4-8.2); eGFR 31 ML/MIN
--- NOTE | 2020-01-18 06:24 | NUR ---
Problems reprioritized. Patient report given, questions answered & plan of care reviewed with Stella ALVAREZ.
--- NOTE | 2020-01-18 06:37 | NUR ---
Patient in room PCU 3014. I have received report from Mynor ALVAREZ and had the opportunity to ask questions and assume patient care.
[2020-01-18] MEDS ORDERED: heparin 1,000unit/ml 10ml vial 10 ML IV ONE (07:05)
[2020-01-18] MEDS: docusate sod 100mg capsule PO SCH ×2 (08:00→19:51)
[2020-01-18] MEDS: calcium acetate 667mg (PhosLO) capsule PO SCH ×3 (08:00→17:19)
[2020-01-18] MEDS ORDERED: methylnaltrexone br 12mg/0.6ml inj***SubQ only SQ SCH (09:35)
[2020-01-18] MEDS ORDERED: albumin (human) 25% 100 ML IV solution IV ONE (09:40)
--- NOTE | 2020-01-18 10:04 | NUR ---
Unable to give AM Scheduled medication due to pt having dialysis at this time.
[2020-01-18] MEDS: clonazePAM 0.5mg tablet PO SCH ×3 (10:15→20:47)
[2020-01-18] MEDS: LIDOcaine 5% patch TP SCH (12:19)
[2020-01-18] MEDS: Ursodiol 300mg capsule PO SCH ×2 (12:24→19:51)
[2020-01-18] MEDS: furosemide 40mg tablet PO SCH ×2 (12:24→19:51)
[2020-01-18] MEDS: folic acid/vitamin B complex w/vitamin C 0.8mg tablet PO SCH (12:25)
[2020-01-18] MEDS: aspirin 81mg tab.chew PO SCH (12:25)
[2020-01-18] MEDS: thyroid, pork 30mg tablet PO SCH (12:26)
[2020-01-18] MEDS: methylnaltrexone br 12mg/0.6ml inj***SubQ only SQ SCH (12:42)
[2020-01-18] MEDS: dextrose ORAL solution 15 GM/59 ML bottle PO PRN (16:57)
--- NOTE | 2020-01-18 18:25 | NUR ---
Problems reprioritized. Patient report given, questions answered & plan of care reviewed with Dawna ALVAREZ.
[2020-01-18] MEDS: quetiapine 100mg tablet PO SCH (20:47)
[2020-01-18] MEDS: pregabalin 75mg capsule PO SCH (20:47)
[2020-01-18] MEDS: ROPINIRole 1mg tablet PO SCH (20:47)
[2020-01-18] MEDS: QUEtiapine 25mg tablet PO SCH (20:48)
[2020-01-18] MEDS: insulin glargine (Lantus) pen - multi-dose SQ SCH (21:00)
[2020-01-19] VITALS (7 sets, daily range): BP systolic 91–122; BP diastolic 50–63
[2020-01-19] MEDS: Dextrose 10%-water IV solution 1,000 ML IV SCH (00:05)
[2020-01-19] MEDS: HYDROcodone/acetaminophen 10/325mg tab PO PRN ×4 (04:14→22:31)
--- NOTE | 2020-01-19 06:20 | NUR ---
Patient in room PCU 3014. I have received report from Dawna ALVAREZ and had the opportunity to ask questions and assume patient care.
--- NOTE | 2020-01-19 06:27 | NUR ---
Problems reprioritized. Patient report given, questions answered & plan of care reviewed with KIM Rider.
[2020-01-19] MEDS: clonazePAM 0.5mg tablet PO SCH ×3 (08:37→20:51)
[2020-01-19] MEDS: calcium acetate 667mg (PhosLO) capsule PO SCH ×3 (08:37→18:03)
[2020-01-19] MEDS: folic acid/vitamin B complex w/vitamin C 0.8mg tablet PO SCH (08:37)
[2020-01-19] MEDS: LIDOcaine 5% patch TP SCH (08:37)
[2020-01-19] MEDS: furosemide 40mg tablet PO SCH ×2 (08:37→20:52)
[2020-01-19] MEDS: aspirin 81mg tab.chew PO SCH (08:37)
[2020-01-19] MEDS: Ursodiol 300mg capsule PO SCH ×2 (08:37→20:53)
[2020-01-19] MEDS: thyroid, pork 30mg tablet PO SCH (08:37)
[2020-01-19] MEDS: docusate sod 100mg capsule PO SCH ×2 (08:38→20:52)
[2020-01-19] MEDS: heparin, porcine 5000 units/ml vial SQ SCH ×3 (08:39→23:49)
--- NOTE | 2020-01-19 11:50 | NUR ---
Received orders to stop D10 IVF and ok for TLSO brace request from PT per Licha VILLARREAL
[2020-01-19] MEDS: HYDROmorphone inj. 0.5 MG/0.5 ML DISP.SYRIN IV PRN ×2 (16:32→23:42)
--- NOTE | 2020-01-19 18:16 | NUR ---
Problems reprioritized. Patient report given, questions answered & plan of care reviewed with Noe ALVAREZ.
--- NOTE | 2020-01-19 19:03 | NUR ---
Patient in room PCU 3014. I have received report from Noe ALVAREZ and had the opportunity to ask questions and assume patient care.
[2020-01-19] MEDS: pregabalin 75mg capsule PO SCH (20:51)
[2020-01-19] MEDS: quetiapine 100mg tablet PO SCH (20:52)
[2020-01-19] MEDS: ROPINIRole 1mg tablet PO SCH (20:53)
[2020-01-19] MEDS: QUEtiapine 25mg tablet PO SCH (20:53)
[2020-01-19] MEDS: insulin glargine (Lantus) pen - multi-dose SQ SCH (20:59)
[2020-01-20] VITALS (8 sets, daily range): BP systolic 97–164; BP diastolic 35–72
[2020-01-20] MEDS ORDERED: methylPREDNISolone sod succ 125mg/2ml vial ONE (00:48)
--- NOTE | 2020-01-20 06:07 | NUR ---
Problems reprioritized. Patient report given, questions answered & plan of care reviewed with Frances ALVAREZ.
[2020-01-20 06:39] LABS: BASOPHILS % (AUTO) 1.1 % (0-1); EOSINOPHILS # (AUTO) 0.2 X10'3 (0-0.9); EOSINOPHILS % (AUTO) 5.7 % (0-6); HEMATOCRIT 34.3 % (35.0-45.0); HEMOGLOBIN 11.4 g/dl (12.0-16.0); LYMPHOCYTES # (AUTO) 1.7 X10'3 (1.1-4.8); LYMPHOCYTES % (AUTO) 39.2 % (21-51); MEAN CORPUSCULAR HEMOGLOBIN 30.5 PG (27.0-31.0); MEAN CORPUSCULAR HGB CONC 33.2 g/dL (33.0-36.5); MEAN CORPUSCULAR VOLUME 91.7 FL (78-98); MEAN PLATELET VOLUME 9.9 FL (7.4-10.4); MONOCYTES # (AUTO) 0.5 X10'3 (0-0.9); MONOCYTES % (AUTO) 12.3 % (2-12); NEUTROPHILS # (AUTO) 1.8 X10'3 (1.8-7.7); NEUTROPHILS % (AUTO) 41.7 % (42-75); PLATELET COUNT 154 X10'3 (140-440); RED BLOOD COUNT 3.75 X10'6 (4.20-5.60); RED CELL DISTRIBUTION WIDTH 15.4 % (11.5-14.5); WHITE BLOOD COUNT 4.3 X10'3 (4.5-11.0)
[2020-01-20 06:42] LABS: ALANINE AMINOTRANSFERASE 31 U/L (12-78); ALBUMIN 3.4 G/DL (3.4-5.0); ALBUMIN/GLOBULIN RATIO 0.9 (1.1-1.5); ALKALINE PHOSPHATASE 274 IU/L (46-116); ANION GAP 5 (8-16); ASPARTATE AMINO TRANSFERASE 35 U/L (10-37); BILIRUBIN,TOTAL 0.5 MG/DL (0.1-1.0); BLOOD UREA NITROGEN 26 MG/DL (7-18); BUN/CREATININE RATIO 11.5 (6.6-38.0); CALCIUM 8.7 MG/DL (8.5-10.1); CHLORIDE 89 MMOL/L (99-107); CREATININE 2.27 MG/DL (0.40-0.90); GLUCOSE 101 MG/DL (70-104); MAGNESIUM 1.6 MG/DL (1.5-2.4); PHOSPHORUS 5.1 MG/DL (2.3-4.5); POTASSIUM 4.1 MMOL/L (3.5-5.1); SODIUM 123 MMOL/L (135-145); TOTAL CARBON DIOXIDE 28.7 MMOL/L (24-32); TOTAL PROTEIN 7.1 G/DL (6.4-8.2); eGFR 22 ML/MIN
[2020-01-20] MEDS: HYDROcodone/acetaminophen 10/325mg tab PO PRN ×2 (07:08→11:50)
[2020-01-20] MEDS: docusate sod 100mg capsule PO SCH ×2 (08:00→20:04)
[2020-01-20] MEDS: HYDROmorphone inj. 0.5 MG/0.5 ML DISP.SYRIN IV PRN ×2 (09:09→13:15)
[2020-01-20] MEDS: thyroid, pork 30mg tablet PO SCH (09:23)
[2020-01-20] MEDS: methylnaltrexone br 12mg/0.6ml inj***SubQ only SQ SCH (09:23)
[2020-01-20] MEDS: calcium acetate 667mg (PhosLO) capsule PO SCH ×3 (09:24→17:18)
[2020-01-20] MEDS: furosemide 40mg tablet PO SCH ×3 (09:24→20:25)
[2020-01-20] MEDS: aspirin 81mg tab.chew PO SCH (09:24)
[2020-01-20] MEDS: clonazePAM 0.5mg tablet PO SCH ×3 (09:24→20:05)
[2020-01-20] MEDS: Ursodiol 300mg capsule PO SCH ×2 (09:24→20:04)
[2020-01-20] MEDS: folic acid/vitamin B complex w/vitamin C 0.8mg tablet PO SCH (09:29)
[2020-01-20] MEDS: LIDOcaine 5% patch TP SCH (09:30)
[2020-01-20] MEDS: heparin, porcine 5000 units/ml vial SQ SCH ×2 (09:30→17:18)
[2020-01-20] MEDS: oxyCODONE IR 5mg (immed. release) tablet PO PRN ×2 (17:18→22:50)
--- NOTE | 2020-01-20 19:02 | NUR ---
Patient in room PCU 3014. I have received report from Frances ALVAREZ and had the opportunity to ask questions and assume patient care.
[2020-01-20] MEDS: QUEtiapine 25mg tablet PO SCH (20:05)
[2020-01-20] MEDS: quetiapine 100mg tablet PO SCH (20:05)
[2020-01-20] MEDS: pregabalin 75mg capsule PO SCH (20:05)
[2020-01-20] MEDS: ROPINIRole 1mg tablet PO SCH (20:06)
[2020-01-20] MEDS: insulin glargine (Lantus) pen - multi-dose SQ SCH (21:00)
[2020-01-21] MEDS: heparin, porcine 5000 units/ml vial SQ SCH ×3 (00:12→17:29)
[2020-01-21 03:00] VITALS: BP 104/42
[2020-01-21] MEDS: dextrose ORAL solution 15 GM/59 ML bottle PO PRN ×2 (05:08→05:26)
[2020-01-21 05:20] LABS: BASOPHILS % (AUTO) 0.6 % (0-1); EOSINOPHILS # (AUTO) 0.2 X10'3 (0-0.9); EOSINOPHILS % (AUTO) 4.8 % (0-6); HEMATOCRIT 31.9 % (35.0-45.0); HEMOGLOBIN 10.8 g/dl (12.0-16.0); LYMPHOCYTES # (AUTO) 1.5 X10'3 (1.1-4.8); LYMPHOCYTES % (AUTO) 35.4 % (21-51); MEAN CORPUSCULAR HEMOGLOBIN 30.7 PG (27.0-31.0); MEAN CORPUSCULAR VOLUME 90.5 FL (78-98); MEAN PLATELET VOLUME 9.4 FL (7.4-10.4); MONOCYTES # (AUTO) 0.6 X10'3 (0-0.9); MONOCYTES % (AUTO) 14.6 % (2-12); NEUTROPHILS # (AUTO) 1.9 X10'3 (1.8-7.7); NEUTROPHILS % (AUTO) 44.6 % (42-75); PLATELET COUNT 141 X10'3 (140-440); RED BLOOD COUNT 3.52 X10'6 (4.20-5.60); RED CELL DISTRIBUTION WIDTH 14.9 % (11.5-14.5); WHITE BLOOD COUNT 4.2 X10'3 (4.5-11.0)
[2020-01-21 05:42] LABS: ALANINE AMINOTRANSFERASE 26 U/L (12-78); ALBUMIN/GLOBULIN RATIO 0.8 (1.1-1.5); ALKALINE PHOSPHATASE 262 IU/L (46-116); ANION GAP 4 (8-16); ASPARTATE AMINO TRANSFERASE 30 U/L (10-37); BILIRUBIN,TOTAL 0.4 MG/DL (0.1-1.0); BLOOD UREA NITROGEN 38 MG/DL (7-18); BUN/CREATININE RATIO 17.8 (6.6-38.0); CALCIUM 8.2 MG/DL (8.5-10.1); CHLORIDE 89 MMOL/L (99-107); CREATININE 2.13 MG/DL (0.40-0.90); GLUCOSE 87 MG/DL (70-104); MAGNESIUM 1.5 MG/DL (1.5-2.4); PHOSPHORUS 5.3 MG/DL (2.3-4.5); POTASSIUM 4.7 MMOL/L (3.5-5.1); TOTAL CARBON DIOXIDE 26.8 MMOL/L (24-32); TOTAL PROTEIN 6.6 G/DL (6.4-8.2); eGFR 23 ML/MIN
[2020-01-21 05:45] LABS: SODIUM 120 MMOL/L (135-145)
[2020-01-21] MEDS: dextrose 50%-water 50ml dispensing syringe IV PRN (05:52)
--- NOTE | 2020-01-21 05:59 | NUR ---
PAGER ID: [phone] MESSAGE: [id number] Daya Frazier Critical lab value of Sodium 120 Aranza ALVAREZ
--- NOTE | 2020-01-21 06:00 | NUR ---
Patient in room PCU 3014. I have received report from Floresita ALVAREZ and had the opportunity to ask questions and assume patient care.
--- NOTE | 2020-01-21 06:00 | NUR ---
Problems reprioritized. Patient report given, questions answered & plan of care reviewed with Floresita ALVAREZ.
--- NOTE | 2020-01-21 06:29 | NUR ---
Problems reprioritized. Patient report given, questions answered & plan of care reviewed with Magnolia ALVAREZ.
--- NOTE | 2020-01-21 07:52 | NUR ---
Dr. Ford was notified of critical NA of 120. No new orders.
[2020-01-21 08:00] VITALS: BP 106/48
[2020-01-21] MEDS ORDERED: normal saline 1000ml 250 ML IV PRN (08:00)
[2020-01-21] MEDS: furosemide 40mg tablet PO SCH ×2 (08:00→20:26)
[2020-01-21] MEDS: docusate sod 100mg capsule PO SCH ×2 (08:00→20:24)
[2020-01-21] MEDS: clonazePAM 0.5mg tablet PO SCH ×3 (08:00→20:24)
[2020-01-21] MEDS: calcium acetate 667mg (PhosLO) capsule PO SCH ×3 (08:00→17:29)
[2020-01-21] MEDS ORDERED: heparin 1,000unit/ml 10ml vial 10 ML IV ONE (08:00)
[2020-01-21] MEDS ORDERED: heparin 1,000 units/ml 10ml inj HE ONE ×2 (08:00)
[2020-01-21] MEDS: oxyCODONE IR 5mg (immed. release) tablet PO PRN ×3 (09:42→18:41)
[2020-01-21 11:00] VITALS: BP 95/48
--- NOTE | 2020-01-21 11:00 | NUR ---
manager epic offered to change TDC dressing during dialysis today. I got her the kit and thanked her for changing it. I walked into to help my patient and the central line dressing kit was open on the table. Cleansing swabs, sterile glove, face, mask were all inside the kit on the table. Dressing was changed. I do not believe it was correctly done.
[2020-01-21] MEDS: aspirin 81mg tab.chew PO SCH (12:07)
[2020-01-21] MEDS: Ursodiol 300mg capsule PO SCH ×2 (12:07→20:23)
[2020-01-21] MEDS: folic acid/vitamin B complex w/vitamin C 0.8mg tablet PO SCH (12:07)
[2020-01-21] MEDS: thyroid, pork 30mg tablet PO SCH (12:08)
[2020-01-21] MEDS: LIDOcaine 5% patch TP SCH (12:14)
[2020-01-21 15:00] VITALS: BP 125/40
--- NOTE | 2020-01-21 15:10 | NUR ---
Reassessment: Pt PO 50-75% avg renal/carb controlled meals partially meeting needs receiving Phoslo on HD. EDEN recommends vanilla ensure high protein TIDWM; notified. Na 120 this AM; aware per RN. LBM 01/19 receiving routine colace. Wt fluctuates daily on lasix and HD w/ -1085ml fluid balance this admit per EMR. Will continue to monitor for additional protein needs on HD. Recommendations: 1) Continue renal CHO controlled diet 2) vanilla ensure high protein TIDWM 3) Continue routine Phos binder w/ meals 4) Routine bowel care 5) Scaled weights w/ HD Addendum: 01/21/20 at [address] Amended: Links added.
[2020-01-21 18:00] VITALS: BP 153/66
--- NOTE | 2020-01-21 18:29 | NUR ---
Patient in room PCU 3014. I have received report from Magnolia ALVAREZ and had the opportunity to ask questions and assume patient care.
[2020-01-21] MEDS: pregabalin 75mg capsule PO SCH (20:23)
[2020-01-21] MEDS: quetiapine 100mg tablet PO SCH (20:23)
[2020-01-21] MEDS: ROPINIRole 1mg tablet PO SCH (20:23)
[2020-01-21] MEDS: QUEtiapine 25mg tablet PO SCH (20:24)
[2020-01-21] MEDS: insulin glargine (Lantus) pen - multi-dose SQ SCH (21:00)
[2020-01-21] MEDS: tizanidine 4mg tablet PO PRN (21:43)
[2020-01-21 22:00] VITALS: BP 97/53
[2020-01-22] MEDS: heparin, porcine 5000 units/ml vial SQ SCH ×2 (00:12→08:13)
[2020-01-22 02:59] VITALS: BP 130/68
[2020-01-22] MEDS: oxyCODONE IR 5mg (immed. release) tablet PO PRN ×3 (03:46→16:04)
--- NOTE | 2020-01-22 06:00 | NUR ---
Patient in room PCU 3014. I have received report from Floresita ALVAREZ and had the opportunity to ask questions and assume patient care.
--- NOTE | 2020-01-22 06:01 | NUR ---
Patient did not want lab drawn and then changed her mind so her labs will be late.
--- NOTE | 2020-01-22 06:06 | NUR ---
Problems reprioritized. Patient report given, questions answered & plan of care reviewed with Magnolia ALVAREZ.
[2020-01-22 07:00] VITALS: BP 118/43
[2020-01-22 07:49] LABS: BASOPHILS % (AUTO) 0.8 % (0-1); EOSINOPHILS # (AUTO) 0.1 X10'3 (0-0.9); EOSINOPHILS % (AUTO) 3.8 % (0-6); HEMATOCRIT 32.4 % (35.0-45.0); HEMOGLOBIN 10.7 g/dl (12.0-16.0); LYMPHOCYTES # (AUTO) 1.2 X10'3 (1.1-4.8); MEAN CORPUSCULAR HEMOGLOBIN 30.3 PG (27.0-31.0); MEAN CORPUSCULAR HGB CONC 33.1 g/dL (33.0-36.5); MEAN CORPUSCULAR VOLUME 91.5 FL (78-98); MEAN PLATELET VOLUME 9.5 FL (7.4-10.4); MONOCYTES # (AUTO) 0.5 X10'3 (0-0.9); MONOCYTES % (AUTO) 14.8 % (2-12); NEUTROPHILS # (AUTO) 1.5 X10'3 (1.8-7.7); NEUTROPHILS % (AUTO) 45.6 % (42-75); PLATELET COUNT 155 X10'3 (140-440); RED BLOOD COUNT 3.54 X10'6 (4.20-5.60); WHITE BLOOD COUNT 3.3 X10'3 (4.5-11.0)
[2020-01-22] MEDS: aspirin 81mg tab.chew PO SCH (08:10)
[2020-01-22] MEDS: Ursodiol 300mg capsule PO SCH (08:10)
[2020-01-22] MEDS: clonazePAM 0.5mg tablet PO SCH ×2 (08:10→13:17)
[2020-01-22] MEDS: docusate sod 100mg capsule PO SCH (08:10)
[2020-01-22] MEDS: furosemide 40mg tablet PO SCH (08:11)
[2020-01-22] MEDS: thyroid, pork 30mg tablet PO SCH (08:11)
[2020-01-22] MEDS: calcium acetate 667mg (PhosLO) capsule PO SCH ×2 (08:11→13:17)
[2020-01-22] MEDS: folic acid/vitamin B complex w/vitamin C 0.8mg tablet PO SCH (08:11)
[2020-01-22] MEDS: methylnaltrexone br 12mg/0.6ml inj***SubQ only SQ SCH (08:14)
[2020-01-22] MEDS: LIDOcaine 5% patch TP SCH (08:15)
[2020-01-22 08:32] LABS: ALANINE AMINOTRANSFERASE 33 U/L (12-78); ALBUMIN 2.9 G/DL (3.4-5.0); ALBUMIN/GLOBULIN RATIO 0.8 (1.1-1.5); ALKALINE PHOSPHATASE 258 IU/L (46-116); ANION GAP 7 (8-16); ASPARTATE AMINO TRANSFERASE 33 U/L (10-37); BILIRUBIN,TOTAL 0.4 MG/DL (0.1-1.0); BLOOD UREA NITROGEN 23 MG/DL (7-18); BUN/CREATININE RATIO 12.8 (6.6-38.0); CALCIUM 8.4 MG/DL (8.5-10.1); CHLORIDE 99 MMOL/L (99-107); GLUCOSE 96 MG/DL (70-104); MAGNESIUM 1.7 MG/DL (1.5-2.4); PHOSPHORUS 3.2 MG/DL (2.3-4.5); POTASSIUM 4.4 MMOL/L (3.5-5.1); SODIUM 133 MMOL/L (135-145); TOTAL CARBON DIOXIDE 26.8 MMOL/L (24-32); TOTAL PROTEIN 6.5 G/DL (6.4-8.2); eGFR 29 ML/MIN
[2020-01-22 11:00] VITALS: BP 127/67
[2020-01-22] MEDS: tizanidine 4mg tablet PO PRN (11:33)
[2020-01-22] MEDS ORDERED: TIZA4TAB5 PO (14:39)
[2020-01-22] MEDS ORDERED: LIDO700A47 TP (14:39)
[2020-01-22] MEDS ORDERED: OXYC-658 PO (14:39)
--- NOTE | 2020-01-22 14:55 | NUR ---
2828M Freddie. PT being discharged to home. Needs front wheel walker and shower chair. Magnolia [phone]
--- NOTE | 2020-01-22 16:49 | NUR ---
Patient was discharged to home at 1620. PIV was removed with cannula intact. She was picked up by her mother and sister. Her mom is going to stay with her tonight. I obtained a shower chair and a front wheel walked for patient to use at home. Patient was wearing LSO brace. SHe was handed hand written new RXs from Dr. Bell. SHe made appointments for dialysis tomorrow and arranged a ride with [employer]. She also made a f/u appt with Dr. Bell. Discharge instructions were reviewed with patient regarding diet, medications, and warning signs. PAtient was alert, oriented, appropriate and happy to go home to her family.
== END 2020-01-22 16:20 | disposition home health service (06) | DRG 542 ==
LOC: EEVIPCON 18:46 → ER 18:46 → ED HOLD 22:53 → EEVIPCON 22:53 → PCU 3S 23:45
PROVIDERS: ADMIT Internal Medicine Critical Care Medicine; ATTEND Internal Medicine Critical Care Medicine
PROC: 5A1D70Z Performance of Urinary Filtration, Intermittent, Less than 6 Hours Per Day (ICD-10-PCS; 2020-01-14)
PROC: 5A1D70Z Performance of Urinary Filtration, Intermittent, Less than 6 Hours Per Day (ICD-10-PCS; 2020-01-16)
PROC: 5A1D70Z Performance of Urinary Filtration, Intermittent, Less than 6 Hours Per Day (ICD-10-PCS; 2020-01-18)
PROC: CP171ZZ Planar Nuclear Medicine Imaging of Spine and Pelvis using Technetium 99m (Tc-99m) (ICD-10-PCS; 2020-01-18)
PROC: 5A1D70Z Performance of Urinary Filtration, Intermittent, Less than 6 Hours Per Day (ICD-10-PCS; principal; 2020-01-21)
DX: M48.56XA Collapsed vertebra, not elsewhere classified, lumbar region, initial encounter for fracture (principal); I21.4 Non-ST elevation (NSTEMI) myocardial infarction; N18.6 End stage renal disease; R18.8 Other ascites; E11.22 Type 2 diabetes mellitus with diabetic chronic kidney disease; K74.60 Unspecified cirrhosis of liver; E03.9 Hypothyroidism, unspecified; F32.9 Major depressive disorder, single episode, unspecified; G89.29 Other chronic pain; K21.9 Gastro-esophageal reflux disease without esophagitis; M54.9 Dorsalgia, unspecified; R55 Syncope and collapse; W18.39XA Other fall on same level, initial encounter; E11.42 Type 2 diabetes mellitus with diabetic polyneuropathy; E78.00 Pure hypercholesterolemia, unspecified; Z96.651 Presence of right artificial knee joint; E78.5 Hyperlipidemia, unspecified; F41.9 Anxiety disorder, unspecified; G25.81 Restless legs syndrome; Z79.4 Long term (current) use of insulin; Z82.3 Family history of stroke; Z82.49 Family history of ischemic heart disease and other diseases of the circulatory system; Z99.2 Dependence on renal dialysis; Y93.89 Activity, other specified; Y92.89 Other specified places as the place of occurrence of the external cause; Y99.8 Other external cause status; Z79.899 Other long term (current) drug therapy
CPT/HCPCS: 36415; 70450; 71045; 72100; 72148; 78803; 80047; 80053; 80061; 80305; 81001; 82024; 82948; 83036; 83605; 83735; 84100; 84443; 84484; 85025; 85610; 87040; 87081; 93005; 93306; 93880; 97110; 97116; 97162; 97530; 97760; 99285; A9503; G0378; J1170; J1644; J1815; J2212; J2930; J7030; J7131; P9047

== ENCOUNTER 2020-02-06 16:39 | Emergency (ER) | payer MEDICARE, MEDICAID, OTHER ==
[~2020-02-06] VITALS: Ht 154.9 cm; Wt 71.5 kg
[~2020-02-06 16:39] MED LIST changes: +CALC667C5 PO; +CLON-371 PO; -CLON-527 PO; +FOLI1TAB34 PO; -FURO-150 PO; +FURO40TA4 PO; +HYDR-3972 PO; -HYDR-4353 PO; +LANTUS SQ; +LIDO700A47 TP; -LIOT5TAB10 PO; -OMEP20CA15 PO; -ONDA4TAB6 PO; +OXYC-658 PO; -PREG150C PO; +PREG150C46 PO; -ROPI1TAB2 PO; +ROPI2TAB7 PO; -SITA1TAB6 PO; -SPIR50TA5 PO; +THYR90TA PO; +TIZA4TAB5 PO; +URSO300C2 PO; -[UNRECOGNIZED DRUG - CODE] TOP
[2020-02-06] MEDS ORDERED: LIDOcaine 5% patch TP STA (17:47)
[2020-02-06] MEDS ORDERED: LIDO1ADH TOP (17:49)
[2020-02-06 18:47] VITALS: BP 123/66
== END 2020-02-06 18:25 | disposition home or self-care (01) ==
LOC: ER 16:40
DX: M54.5 Low back pain (principal); G89.29 Other chronic pain; E11.42 Type 2 diabetes mellitus with diabetic polyneuropathy; E78.00 Pure hypercholesterolemia, unspecified; I25.2 Old myocardial infarction; K21.9 Gastro-esophageal reflux disease without esophagitis; F32.9 Major depressive disorder, single episode, unspecified; Z86.14 Personal history of Methicillin resistant Staphylococcus aureus infection; Z90.49 Acquired absence of other specified parts of digestive tract; Z98.890 Other specified postprocedural states; Z60.2 Problems related to living alone; Z56.0 Unemployment, unspecified; Z88.2 Allergy status to sulfonamides; Z88.6 Allergy status to analgesic agent; Z88.5 Allergy status to narcotic agent; Z88.1 Allergy status to other antibiotic agents; Z91.040 Latex allergy status; Z79.4 Long term (current) use of insulin; Z79.899 Other long term (current) drug therapy
CPT/HCPCS: 99283

== ENCOUNTER 2020-02-14 08:45 | Emergency (ER) | payer MEDICARE, MEDICAID, OTHER ==
[~2020-02-14] VITALS: Ht 154.9 cm; Wt 71.8 kg
[~2020-02-14 08:45] MED LIST changes: +LIDO1ADH TOP
[2020-02-14 09:33] LABS: BASOPHILS % (AUTO) 0.8 % (0-1); EOSINOPHILS # (AUTO) 0.2 X10'3 (0-0.9); EOSINOPHILS % (AUTO) 6.1 % (0-6); HEMATOCRIT 36.3 % (35.0-45.0); HEMOGLOBIN 11.8 g/dl (12.0-16.0); LYMPHOCYTES # (AUTO) 1.1 X10'3 (1.1-4.8); LYMPHOCYTES % (AUTO) 29.7 % (21-51); MEAN CORPUSCULAR HEMOGLOBIN 30.4 PG (27.0-31.0); MEAN CORPUSCULAR HGB CONC 32.4 g/dL (33.0-36.5); MEAN CORPUSCULAR VOLUME 93.6 FL (78-98); MEAN PLATELET VOLUME 9.2 FL (7.4-10.4); MONOCYTES # (AUTO) 0.3 X10'3 (0-0.9); MONOCYTES % (AUTO) 8.1 % (2-12); NEUTROPHILS # (AUTO) 2.1 X10'3 (1.8-7.7); NEUTROPHILS % (AUTO) 55.3 % (42-75); PLATELET COUNT 176 X10'3 (140-440); RED BLOOD COUNT 3.88 X10'6 (4.20-5.60); RED CELL DISTRIBUTION WIDTH 15.1 % (11.5-14.5); WHITE BLOOD COUNT 3.8 X10'3 (4.5-11.0)
[2020-02-14 09:47] LABS: ALANINE AMINOTRANSFERASE 29 U/L (12-78); ALBUMIN 3.2 G/DL (3.4-5.0); ALBUMIN/GLOBULIN RATIO 0.8 (1.1-1.5); ALKALINE PHOSPHATASE 298 IU/L (46-116); ANION GAP 3 (8-16); ASPARTATE AMINO TRANSFERASE 42 U/L (10-37); BILIRUBIN,TOTAL 0.5 MG/DL (0.1-1.0); BLOOD UREA NITROGEN 20 MG/DL (7-18); BUN/CREATININE RATIO 10.4 (6.6-38.0); CALCIUM 8.8 MG/DL (8.5-10.1); CHLORIDE 104 MMOL/L (99-107); CREATININE 1.93 MG/DL (0.40-0.90); GLUCOSE 88 MG/DL (70-104); POTASSIUM 3.8 MMOL/L (3.5-5.1); SODIUM 142 MMOL/L (135-145); TOTAL CARBON DIOXIDE 35.4 MMOL/L (24-32); TOTAL PROTEIN 7.2 G/DL (6.4-8.2); eGFR 26 ML/MIN
[2020-02-14 11:34] VITALS: BP 135/105
== END 2020-02-14 11:36 | disposition home or self-care (01) ==
LOC: ER 08:46
DX: T82.49XA Other complication of vascular dialysis catheter, initial encounter (principal); E11.42 Type 2 diabetes mellitus with diabetic polyneuropathy; E78.00 Pure hypercholesterolemia, unspecified; I25.2 Old myocardial infarction; K21.9 Gastro-esophageal reflux disease without esophagitis; G89.29 Other chronic pain; F32.9 Major depressive disorder, single episode, unspecified; Z86.14 Personal history of Methicillin resistant Staphylococcus aureus infection; Z90.49 Acquired absence of other specified parts of digestive tract; Z98.890 Other specified postprocedural states; Z88.2 Allergy status to sulfonamides; Z79.2 Long term (current) use of antibiotics; Z79.4 Long term (current) use of insulin; Z79.899 Other long term (current) drug therapy
CPT/HCPCS: 36415; 71045; 80053; 83880; 84484; 85025; 93005; 99285

== ENCOUNTER 2020-05-15 18:41 | Emergency (ER) | payer MEDICARE, MEDICAID, OTHER ==
[~2020-05-15] VITALS: Ht 154.9 cm; Wt 72.3 kg
--- NOTE | 2020-05-15 19:32 | NUR ---
sister: melany pike
[2020-05-15] MEDS ORDERED: morphine 5 MG/ML injection IM ONE (19:40)
[2020-05-15] MEDS ORDERED: HYDROcodone/acetaminophen 10/325mg tab PO ONE (19:40)
--- NOTE | 2020-05-15 20:15 | NUR ---
spoke with dispatch and information given.
[2020-05-15] MEDS ORDERED: morphine 10mg/ml inj. IM ONE ×2 (20:25→20:40)
--- NOTE | 2020-05-15 20:30 | NUR ---
morphine given right deltoid. unabke to scan. pharmacy awware
[2020-05-15] MEDS ORDERED: HYDR-4353 PO (20:33)
[2020-05-15 20:52] VITALS: BP 129/77
== END 2020-05-15 22:06 | disposition home or self-care (01) ==
LOC: ER 18:42 → EEVIPCON 18:42 → ER 22:06
DX: S00.83XA Contusion of other part of head, initial encounter (principal); S22.31XA Fracture of one rib, right side, initial encounter for closed fracture; E78.00 Pure hypercholesterolemia, unspecified; G62.9 Polyneuropathy, unspecified; I21.9 Acute myocardial infarction, unspecified; Z56.0 Unemployment, unspecified; Z86.73 Personal history of transient ischemic attack (TIA), and cerebral infarction without residual deficits; Z88.6 Allergy status to analgesic agent; Z88.2 Allergy status to sulfonamides; Z88.1 Allergy status to other antibiotic agents; Z91.040 Latex allergy status; Z88.5 Allergy status to narcotic agent; Y04.0XXA Assault by unarmed brawl or fight, initial encounter; Y93.89 Activity, other specified; Y92.89 Other specified places as the place of occurrence of the external cause; Y99.8 Other external cause status
CPT/HCPCS: 70450; 70486; 71045; 96372; 99285; J2270

== ENCOUNTER 2020-07-02 19:41 | Emergency (ER) | payer MEDICARE, MEDICAID, OTHER ==
[~2020-07-02] VITALS: Ht 154.9 cm; Wt 52.6 kg
[2020-07-02 19:55] VITALS: BP 155/72
[2020-07-03] MEDS ORDERED: FENT1PAT8 TOP (06:32)
[2020-07-03] MEDS ORDERED: MIDO10TA PO (06:32)
== END 2020-07-02 21:27 | disposition home or self-care (01) ==
LOC: ER 19:42
DX: R07.81 Pleurodynia (principal); R11.10 Vomiting, unspecified; E11.42 Type 2 diabetes mellitus with diabetic polyneuropathy; E78.00 Pure hypercholesterolemia, unspecified; I25.2 Old myocardial infarction; K21.9 Gastro-esophageal reflux disease without esophagitis; G89.29 Other chronic pain; F32.9 Major depressive disorder, single episode, unspecified; Z86.14 Personal history of Methicillin resistant Staphylococcus aureus infection; Z90.49 Acquired absence of other specified parts of digestive tract; Z98.890 Other specified postprocedural states; Z60.2 Problems related to living alone; Z56.0 Unemployment, unspecified; Z88.6 Allergy status to analgesic agent; Z88.2 Allergy status to sulfonamides; Z88.5 Allergy status to narcotic agent; Z88.1 Allergy status to other antibiotic agents; Z91.040 Latex allergy status; Z79.4 Long term (current) use of insulin; Z79.899 Other long term (current) drug therapy
CPT/HCPCS: 71046; 99283

== ENCOUNTER 2020-07-03 05:56 | Day surgery (SDC) | payer MEDICARE, MEDICAID, OTHER ==
[~2020-07-03] VITALS: Ht 154.9 cm; Wt 74.3 kg
[2020-07-03] MEDS ORDERED: albumin 25% 100mL bottle x 1 IV PRN (06:20)
[2020-07-03 06:32] VITALS: BP 166/68
[2020-07-03] MEDS ORDERED: FENT1PAT8 TOP (06:32)
[2020-07-03] MEDS ORDERED: MIDO10TA PO (06:32)
== END 2020-07-03 08:20 | disposition home or self-care (01) ==
LOC: SSTAY O 05:56
PROVIDERS: ATTEND Radiology Vascular & Interventional Radiology
DX: R18.8 Other ascites (principal); R14.0 Abdominal distension (gaseous); K74.60 Unspecified cirrhosis of liver; E78.5 Hyperlipidemia, unspecified; K21.9 Gastro-esophageal reflux disease without esophagitis; G89.29 Other chronic pain; F32.9 Major depressive disorder, single episode, unspecified; E11.22 Type 2 diabetes mellitus with diabetic chronic kidney disease; N18.6 End stage renal disease; Z99.2 Dependence on renal dialysis; Z90.49 Acquired absence of other specified parts of digestive tract; Z98.890 Other specified postprocedural states; Z96.651 Presence of right artificial knee joint; Z88.2 Allergy status to sulfonamides; Z88.8 Allergy status to other drugs, medicaments and biological substances; Z91.040 Latex allergy status; Z88.5 Allergy status to narcotic agent; Z79.4 Long term (current) use of insulin; Z79.899 Other long term (current) drug therapy; Z82.3 Family history of stroke; Z82.49 Family history of ischemic heart disease and other diseases of the circulatory system
CPT/HCPCS: 76705

== ENCOUNTER 2020-08-05 06:56 | Day surgery (SDC) | payer MEDICARE, MEDICAID, OTHER ==
[~2020-08-05] VITALS: Ht 154.9 cm; Wt 74.2 kg
[2020-08-05] VITALS (7 sets, daily range): BP systolic 101–161; BP diastolic 50–87
[~2020-08-05 06:56] MED LIST changes: +FENT1PAT8 TOP; -LIDO1ADH TOP; -LIDO700A47 TP; +MIDO10TA PO; -URSO300C2 PO
[2020-08-05] MEDS ORDERED: SPIR50TA5 PO (07:21)
[2020-08-05] MEDS ORDERED: LIDO700A47 TOP (07:21)
[2020-08-05] MEDS ORDERED: PROP20TA6 PO (07:21)
[2020-08-05] MEDS ORDERED: normal saline 1000ml 1,000 ML IV SCH (07:25)
[2020-08-05 07:56] LABS: EOSINOPHILS # (AUTO) 0.2 X10'3 (0-0.9); EOSINOPHILS % (AUTO) 3.8 % (0-6); HEMOGLOBIN 11.9 g/dl (12.0-16.0); LYMPHOCYTES # (AUTO) 1.2 X10'3 (1.1-4.8); LYMPHOCYTES % (AUTO) 24.8 % (21-51); MEAN CORPUSCULAR HGB CONC 33.2 g/dL (33.0-36.5); MEAN CORPUSCULAR VOLUME 93.4 FL (78-98); MEAN PLATELET VOLUME 8.9 FL (7.4-10.4); MONOCYTES # (AUTO) 0.4 X10'3 (0-0.9); MONOCYTES % (AUTO) 9.2 % (2-12); NEUTROPHILS # (AUTO) 2.9 X10'3 (1.8-7.7); NEUTROPHILS % (AUTO) 61.2 % (42-75); PLATELET COUNT 160 X10'3 (140-440); RED BLOOD COUNT 3.85 X10'6 (4.20-5.60); RED CELL DISTRIBUTION WIDTH 14.3 % (11.5-14.5); WHITE BLOOD COUNT 4.8 X10'3 (4.5-11.0)
[2020-08-05 08:23] LABS: ALBUMIN 2.8 G/DL (3.4-5.0); ANION GAP 7 (8-16); BLOOD UREA NITROGEN 28 MG/DL (7-18); BUN/CREATININE RATIO 11.7 (6.6-38.0); CHLORIDE 105 MMOL/L (99-107); GLUCOSE 116 MG/DL (70-104); POTASSIUM 4.4 MMOL/L (3.5-5.1); SODIUM 140 MMOL/L (135-145); TOTAL CARBON DIOXIDE 28.2 MMOL/L (24-32); eGFR 20 ML/MIN
[2020-08-05] MEDS ORDERED: heparin 1,000 UNITS/NS 500ml 500 ML ONE (08:23)
[2020-08-05] MEDS ORDERED: fentaNYL/PF 50MCG/1 ML 2ML syringe ONE ×2 (08:23→09:19)
[2020-08-05] MEDS ORDERED: iohexol 300mg/ml 100ml inj. ONE (08:23)
[2020-08-05] MEDS ORDERED: LIDOcaine 1%/PF 5ML 10 MG/ML VIAL ONE (08:23)
[2020-08-05] MEDS ORDERED: midazolam 2 mg/2 ml injection ONE (08:23)
[2020-08-05 08:34] LABS: CALCIUM 8.3 MG/DL (8.5-10.1)
--- NOTE | 2020-08-05 09:20 | NUR ---
Pt sitting up in bed eating breakfast. VS stable as charted. Site stable, jaguar CD&I.
== END 2020-08-05 11:00 | disposition home or self-care (01) ==
LOC: SSTAY O 06:56
PROVIDERS: ATTEND Radiology Vascular & Interventional Radiology
DX: T82.858A Stenosis of other vascular prosthetic devices, implants and grafts, initial encounter (principal); K74.60 Unspecified cirrhosis of liver; E78.5 Hyperlipidemia, unspecified; K21.9 Gastro-esophageal reflux disease without esophagitis; E11.22 Type 2 diabetes mellitus with diabetic chronic kidney disease; G89.29 Other chronic pain; F32.9 Major depressive disorder, single episode, unspecified; Z79.899 Other long term (current) drug therapy; Z79.4 Long term (current) use of insulin; Z99.2 Dependence on renal dialysis; Z88.2 Allergy status to sulfonamides; Z91.040 Latex allergy status; Z88.8 Allergy status to other drugs, medicaments and biological substances; Z88.1 Allergy status to other antibiotic agents; Z82.3 Family history of stroke; Z82.49 Family history of ischemic heart disease and other diseases of the circulatory system; Y83.2 Surgical operation with anastomosis, bypass or graft as the cause of abnormal reaction of the patient, or of later complication, without mention of misadventure at the time of the procedure; Y92.89 Other specified places as the place of occurrence of the external cause
CPT/HCPCS: 36415; 36902; 80048; 85025; 85610; 99152; 99153; C1725; C1769; C1894; J1644; J2250; J3010; Q9967

== ENCOUNTER 2020-11-13 14:27 | Emergency (ER) | payer MEDICARE, MEDICAID, OTHER ==
[~2020-11-13] VITALS: Ht 154.9 cm; Wt 77.0 kg
[~2020-11-13 14:27] MED LIST changes: +LIDO700A47 TOP; -OXYC-658 PO; +PROP20TA6 PO; +SPIR50TA5 PO; -TIZA4TAB5 PO
[2020-11-13 15:12] LABS: BASOPHILS # (AUTO) 0.1 X10'3 (0-0.2); BASOPHILS % (AUTO) 0.7 % (0-1); EOSINOPHILS # (AUTO) 0.3 X10'3 (0-0.9); EOSINOPHILS % (AUTO) 3.4 % (0-6); HEMATOCRIT 41.1 % (35.0-45.0); HEMOGLOBIN 13.6 g/dl (12.0-16.0); LYMPHOCYTES # (AUTO) 1.7 X10'3 (1.1-4.8); LYMPHOCYTES % (AUTO) 22.4 % (21-51); MEAN CORPUSCULAR HEMOGLOBIN 31.1 PG (27.0-31.0); MEAN CORPUSCULAR HGB CONC 33.2 g/dL (33.0-36.5); MEAN CORPUSCULAR VOLUME 93.7 FL (78-98); MEAN PLATELET VOLUME 9.3 FL (7.4-10.4); MONOCYTES # (AUTO) 0.6 X10'3 (0-0.9); NEUTROPHILS # (AUTO) 4.9 X10'3 (1.8-7.7); NEUTROPHILS % (AUTO) 65.5 % (42-75); PLATELET COUNT 158 X10'3 (140-440); RED BLOOD COUNT 4.38 X10'6 (4.20-5.60); RED CELL DISTRIBUTION WIDTH 15.1 % (11.5-14.5); WHITE BLOOD COUNT 7.6 X10'3 (4.5-11.0)
[2020-11-13 15:34] LABS: ALANINE AMINOTRANSFERASE 46 U/L (12-78); ALBUMIN 3.2 G/DL (3.4-5.0); ALBUMIN/GLOBULIN RATIO 0.7 (1.1-1.5); ALKALINE PHOSPHATASE 313 IU/L (46-116); ANION GAP 4 (8-16); ASPARTATE AMINO TRANSFERASE 60 U/L (10-37); BILIRUBIN,TOTAL 0.5 MG/DL (0.1-1.0); BLOOD UREA NITROGEN 30 MG/DL (7-18); CALCIUM 8.6 MG/DL (8.5-10.1); CHLORIDE 102 MMOL/L (99-107); CREATININE 2.72 MG/DL (0.40-0.90); GLUCOSE 90 MG/DL (70-104); LIPASE 95 U/L (73-393); POTASSIUM 4.7 MMOL/L (3.5-5.1); SODIUM 138 MMOL/L (135-145); TOTAL CARBON DIOXIDE 31.7 MMOL/L (24-32); TOTAL PROTEIN 7.9 G/DL (6.4-8.2); eGFR 18 ML/MIN
[2020-11-13] MEDS ORDERED: ondansetron/PF 4mg/2ml inj IV ONE (15:45)
[2020-11-13] MEDS ORDERED: morphine 4 MG/ML inj SYRINge IV PRN (15:45)
[2020-11-13 15:52] LABS: CLARITY,URINE CLOUDY (Clear); COLOR,URINE YELLOW (Yellow); GLUCOSE, URINE 100 mg/dl (Neg); KETONES,URINE TRACE mg/dl (Neg); LEUKOCYTE ESTERASE ,URINE NEGATIVE (Neg); NITRITES, URINE NEGATIVE (Neg); OCCULT BLOOD,URINE NEGATIVE (Neg); PROTEIN,URINE >=300 mg/dl (Neg)
[2020-11-13 15:54] LABS: UA COLLECTION TYPE NON-SPECIFIED
[2020-11-13 15:57] LABS: HYALINE CASTS >30 /LPF (NEGATIVE); SQUAMOUS EPITHELIAL CELL,UR MANY /LPF (FEW)
[2020-11-13 15:58] LABS: BACTERIA,URINE 1+ /HPF (Neg); WBC,URINE 0-4 /HPF (0-4)
[2020-11-13] MEDS ORDERED: CLIN150C2 PO (16:19)
[2020-11-13 16:42] VITALS: BP 143/65
== END 2020-11-13 16:44 | disposition home or self-care (01) ==
LOC: ER 14:28
DX: R10.32 Left lower quadrant pain (principal); N18.6 End stage renal disease; K59.00 Constipation, unspecified; E78.00 Pure hypercholesterolemia, unspecified; K21.9 Gastro-esophageal reflux disease without esophagitis; G89.29 Other chronic pain; M54.9 Dorsalgia, unspecified; Z99.2 Dependence on renal dialysis
CPT/HCPCS: 36415; 74176; 80053; 81001; 83690; 85025; 96374; 96375; 99284; J2270; J2405

== ENCOUNTER 2020-12-02 07:41 | Day surgery (SDC) | payer MEDICARE, MEDICAID, OTHER ==
[~2020-12-02] VITALS: Ht 154.9 cm; Wt 79.0 kg
[~2020-12-02 07:41] MED LIST changes: +CLIN150C2 PO
[2020-12-02] MEDS ORDERED: albumin 25% 100mL bottle x 1 IV PRN (08:15)
[2020-12-02] MEDS ORDERED: TOBR5DRO7 EACHEYE (08:32)
[2020-12-02] MEDS ORDERED: DRY EYE EACHEYE (08:32)
[2020-12-02] MEDS ORDERED: CALC3.7S5 BOTHNARES (08:32)
[2020-12-02] MEDS ORDERED: LIOT5TAB10 PO (08:32)
[2020-12-02] MEDS ORDERED: OMEP-50 PO (08:32)
[2020-12-02] MEDS ORDERED: ONDA4TAB12 SL (08:32)
[2020-12-02] MEDS ORDERED: METO5TAB85 PO (08:32)
[2020-12-02 08:33] VITALS: BP 115/56
== END 2020-12-02 10:15 | disposition home or self-care (01) ==
LOC: SSTAY O 07:41
PROVIDERS: ATTEND Radiology Vascular & Interventional Radiology
DX: R18.8 Other ascites (principal); Z53.8 Procedure and treatment not carried out for other reasons; R14.0 Abdominal distension (gaseous); K74.60 Unspecified cirrhosis of liver; E78.5 Hyperlipidemia, unspecified; K21.9 Gastro-esophageal reflux disease without esophagitis; G89.29 Other chronic pain; F32.9 Major depressive disorder, single episode, unspecified; E11.22 Type 2 diabetes mellitus with diabetic chronic kidney disease; N18.6 End stage renal disease; Z99.2 Dependence on renal dialysis; Z96.651 Presence of right artificial knee joint; Z98.890 Other specified postprocedural states; Z90.49 Acquired absence of other specified parts of digestive tract; Z88.1 Allergy status to other antibiotic agents; Z88.2 Allergy status to sulfonamides; Z88.8 Allergy status to other drugs, medicaments and biological substances; Z91.040 Latex allergy status; Z79.899 Other long term (current) drug therapy; Z82.3 Family history of stroke; Z82.49 Family history of ischemic heart disease and other diseases of the circulatory system
CPT/HCPCS: 76705

== ENCOUNTER 2020-12-12 11:55 | Inpatient (IN) | payer MEDICARE, MEDICAID, OTHER ==
[~2020-12-12] VITALS: Ht 154.9 cm; Wt 79.8 kg
[~2020-12-12 11:55] MED LIST changes: +CALC3.7S5 BOTHNARES; -CLIN150C2 PO; +DRY EYE EACHEYE; -FENT1PAT8 TOP; +LIOT5TAB10 PO; +METO5TAB85 PO; +OMEP-50 PO; +ONDA4TAB12 SL; -PROP20TA6 PO; +TOBR5DRO7 EACHEYE
[2020-12-12] MEDS ORDERED: benzonatate 100mg capsule PO ONE (15:15)
--- NOTE | 2020-12-12 16:00 | NUR ---
Given patient a sandwich,orange juice,240ml of whole milk and jelo.
[2020-12-12 16:04] LABS: BASOPHILS % (AUTO) 0.7 % (0-1); EOSINOPHILS # (AUTO) 0.2 X10'3 (0-0.9); EOSINOPHILS % (AUTO) 2.8 % (0-6); HEMATOCRIT 43.6 % (35.0-45.0); HEMOGLOBIN 14.6 g/dl (12.0-16.0); LYMPHOCYTES # (AUTO) 2.6 X10'3 (1.1-4.8); LYMPHOCYTES % (AUTO) 39.4 % (21-51); MEAN CORPUSCULAR HGB CONC 33.5 g/dL (33.0-36.5); MEAN CORPUSCULAR VOLUME 92.4 FL (78-98); MEAN PLATELET VOLUME 9.3 FL (7.4-10.4); MONOCYTES # (AUTO) 0.4 X10'3 (0-0.9); MONOCYTES % (AUTO) 6.2 % (2-12); NEUTROPHILS # (AUTO) 3.4 X10'3 (1.8-7.7); NEUTROPHILS % (AUTO) 50.9 % (42-75); PLATELET COUNT 130 X10'3 (140-440); RED BLOOD COUNT 4.72 X10'6 (4.20-5.60); RED CELL DISTRIBUTION WIDTH 14.9 % (11.5-14.5); WHITE BLOOD COUNT 6.7 X10'3 (4.5-11.0)
[2020-12-12 16:17] LABS: ALANINE AMINOTRANSFERASE 37 U/L (12-78); ALBUMIN 3.3 G/DL (3.4-5.0); ALBUMIN/GLOBULIN RATIO 0.7 (1.1-1.5); ALKALINE PHOSPHATASE 290 IU/L (46-116); ANION GAP 7 (8-16); ASPARTATE AMINO TRANSFERASE 50 U/L (10-37); BILIRUBIN,TOTAL 0.5 MG/DL (0.1-1.0); BLOOD UREA NITROGEN 19 MG/DL (7-18); BUN/CREATININE RATIO 9.7 (6.6-38.0); CALCIUM 8.4 MG/DL (8.5-10.1); CHLORIDE 101 MMOL/L (99-107); CREATININE 1.95 MG/DL (0.40-0.90); GLUCOSE 54 MG/DL (70-104); POTASSIUM 4.4 MMOL/L (3.5-5.1); SODIUM 139 MMOL/L (135-145); TOTAL CARBON DIOXIDE 31.1 MMOL/L (24-32); TOTAL PROTEIN 8.3 G/DL (6.4-8.2); eGFR 26 ML/MIN
[2020-12-12] MEDS ORDERED: ondansetron/PF 4mg/2ml inj IV STA (16:34)
--- NOTE | 2020-12-12 16:44 | NUR ---
patient given another sandwich.
[2020-12-12] MEDS ORDERED: azithromycin/NS 500mg/250ml 250 ML IV ONE (17:00)
[2020-12-12] MEDS ORDERED: CefTRIAXone/D5W-Rocephin 1gm 50 ML IV ONE (17:00)
--- NOTE | 2020-12-12 17:01 | NUR ---
patient reports "something in my belly popped" reports hx of abdominal hernia,Dr. Antonio aware.
--- NOTE | 2020-12-12 17:01 | NUR ---
BG 89mg/dl, Dr. Dowd aware.
[2020-12-12] MEDS ORDERED: bisacodyl 10mg suppository rectal RC PRN (17:30)
[2020-12-12] MEDS ORDERED: magnesium 4gm in 100ml NS 100 ML IV PRN (17:30)
[2020-12-12] MEDS ORDERED: ipratropium/albuterol 3ml nebule NEB PRN (17:30)
[2020-12-12] MEDS ORDERED: diphenhydrAMINE 25mg capsule PO PRN (17:30)
[2020-12-12] MEDS ORDERED: magnesium hydroxide 30ml (MOM) UD suspension PO PRN (17:30)
[2020-12-12] MEDS ORDERED: potassium Cl 20 mEq SR tablet PO PRN ×2 (17:30)
[2020-12-12] MEDS ORDERED: MESSAGE TO PHARMACY PO ONE (17:30)
[2020-12-12] MEDS ORDERED: potassium Cl 40MEQ/1/2NS 520ml 520 ML IV PRN ×2 (17:30)
[2020-12-12] MEDS ORDERED: dextrose ORAL solution 15 GM/59 ML bottle PO PRN ×2 (17:30)
[2020-12-12] MEDS ORDERED: ondansetron/PF 4mg/2ml inj IV PRN (17:30)
[2020-12-12] MEDS ORDERED: mag hydrox/Alum hydrox/simeth 30ml oral suspension PO PRN (17:30)
[2020-12-12] MEDS ORDERED: magnesium Cl slow-release 64mg tablet PO PRN (17:30)
[2020-12-12] MEDS ORDERED: acetaminophen 650mg rectal suppository RC PRN (17:30)
[2020-12-12] MEDS ORDERED: glucagon, human recombinant 1mg kit SUBCUT PRN (17:30)
[2020-12-12] MEDS ORDERED: morphine 2 MG/ML inj. syringe IV PRN ×2 (17:30)
[2020-12-12] MEDS ORDERED: HYDROcodone/acetaminophen 5mg/325mg tablet PO PRN (17:30)
[2020-12-12] MEDS ORDERED: acetaminophen 325mg tablet PO PRN ×2 (17:30)
[2020-12-12] MEDS ORDERED: furosemide 10 MG/1 ML 10ml inj IV ONE (17:30)
[2020-12-12] MEDS ORDERED: magnesium 2GM in 50ml NS 50 ML IV PRN (17:30)
[2020-12-12] MEDS ORDERED: dextrose 50%-water 50ml dispensing syringe IV PRN ×2 (17:30)
[2020-12-12] MEDS ORDERED: PEG15DRO5 LEFTEYE (18:20)
[2020-12-12 18:35] LABS: HEMOGLOBIN A1C 6.8 % (4.5-6.2)
[2020-12-12] MEDS ORDERED: methylPREDNISolone sod succ 125mg/2ml vial IV ONE (18:55)
[2020-12-12] MEDS: ipratropium/albuterol 3ml nebule NEB SCH ×2 (19:07→23:13)
[2020-12-12] MEDS ORDERED: PEG 400/HYPROMELLOSE/GLYCERIN 15ml bottle LEFTEYE PRN (19:15)
[2020-12-12] MEDS ORDERED: clonazePAM 1mg tablet PO PRN (19:15)
[2020-12-12] MEDS: normal saline 1000ml 1,000 ML IV SCH (19:29)
[2020-12-12] MEDS: K and/or MAG REPLACEMENT MC SCH (20:00)
[2020-12-12 20:35] LABS: CLARITY,URINE CLEAR (Clear); COLOR,URINE YELLOW (Yellow); GLUCOSE, URINE NEGATIVE (Neg); KETONES,URINE NEGATIVE (Neg); LEUKOCYTE ESTERASE ,URINE NEGATIVE (Neg); NITRITES, URINE NEGATIVE (Neg); OCCULT BLOOD,URINE TRACE-LYSED (Neg); PROTEIN,URINE >=300 mg/dl (Neg)
[2020-12-12 20:42] LABS: UA COLLECTION TYPE CLN CATCH MIDSTREAM
[2020-12-12 20:43] LABS: BACTERIA,URINE FEW /HPF (Neg); RBC,URINE 0-2 /HPF (0-2); SQUAMOUS EPITHELIAL CELL,UR FEW /LPF (FEW); WBC,URINE 0-4 /HPF (0-4)
[2020-12-12] MEDS: quetiapine 100mg tablet PO SCH (20:48)
[2020-12-12] MEDS: pregabalin 75mg capsule PO SCH (20:50)
[2020-12-12] MEDS: ROPINIRole 1mg tablet PO SCH (20:50)
[2020-12-12] MEDS: heparin, porcine 5000 units/ml vial SQ SCH (20:51)
[2020-12-12] MEDS ORDERED: quetiapine 100mg tablet PO SCH (21:00)
[2020-12-12] MEDS: insulin glargine (Lantus) pen - multi-dose SQ SCH (21:00)
[2020-12-12 22:00] VITALS: BP 121/52
--- NOTE | 2020-12-12 22:30 | NUR ---
Patient in room PCU 3025. I have received report from MARGO QUINONEZ and had the opportunity to ask questions and assume patient care.
[2020-12-12] MEDS: calcium acetate 667mg (PhosLO) capsule PO SCH (22:47)
[2020-12-12] MEDS: furosemide 10 MG/1 ML 10ml inj IV SCH (22:48)
[2020-12-12] MEDS ORDERED: HYDROcodone/acetaminophen 10/325mg tab PO PRN (23:45)
[2020-12-13] MEDS: methylPREDNISolone sod succ/PF 40mg inj. IV SCH ×4 (00:40→20:37)
[2020-12-13] MEDS: HYDROcodone/acetaminophen 10/325mg tab PO PRN ×3 (00:41→19:06)
[2020-12-13] MEDS: tobramycin/dexamethasone ophthalmic suspension EACHEYE SCH ×3 (00:42→20:36)
[2020-12-13 02:00] VITALS: BP 111/45
[2020-12-13] MEDS: ipratropium/albuterol 3ml nebule NEB SCH ×6 (02:46→23:28)
[2020-12-13 03:38] LABS: BASOPHILS % (AUTO) 0.2 % (0-1); EOSINOPHILS % (AUTO) 0.2 % (0-6); HEMATOCRIT 37.6 % (35.0-45.0); HEMOGLOBIN 12.5 g/dl (12.0-16.0); LYMPHOCYTES # (AUTO) 0.5 X10'3 (1.1-4.8); LYMPHOCYTES % (AUTO) 13.4 % (21-51); MEAN CORPUSCULAR HEMOGLOBIN 30.9 PG (27.0-31.0); MEAN CORPUSCULAR HGB CONC 33.3 g/dL (33.0-36.5); MEAN CORPUSCULAR VOLUME 92.7 FL (78-98); MEAN PLATELET VOLUME 10.3 FL (7.4-10.4); MONOCYTES # (AUTO) 0.1 X10'3 (0-0.9); MONOCYTES % (AUTO) 1.4 % (2-12); NEUTROPHILS % (AUTO) 84.8 % (42-75); PLATELET COUNT 122 X10'3 (140-440); RED BLOOD COUNT 4.05 X10'6 (4.20-5.60); WHITE BLOOD COUNT 3.6 X10'3 (4.5-11.0)
[2020-12-13 04:02] LABS: ALANINE AMINOTRANSFERASE 31 U/L (12-78); ALBUMIN 2.7 G/DL (3.4-5.0); ALBUMIN/GLOBULIN RATIO 0.6 (1.1-1.5); ALKALINE PHOSPHATASE 232 IU/L (46-116); ANION GAP 6 (8-16); ASPARTATE AMINO TRANSFERASE 45 U/L (10-37); BILIRUBIN,TOTAL 0.3 MG/DL (0.1-1.0); BLOOD UREA NITROGEN 26 MG/DL (7-18); BUN/CREATININE RATIO 11.1 (6.6-38.0); CALCIUM 8.1 MG/DL (8.5-10.1); CHLORIDE 101 MMOL/L (99-107); CHOLESTEROL 208 MG/DL (0-200); CREATININE 2.35 MG/DL (0.40-0.90); GLUCOSE 162 MG/DL (70-104); HDL CHOLESTEROL 42 MG/DL (35-60); LDL CHOLESTEROL 137 MG/DL (50-100); MAGNESIUM 1.8 MG/DL (1.5-2.4); PHOSPHORUS 4.4 MG/DL (2.3-4.5); POTASSIUM 4.8 MMOL/L (3.5-5.1); SODIUM 137 MMOL/L (135-145); TOTAL CARBON DIOXIDE 30.3 MMOL/L (24-32); TOTAL PROTEIN 6.9 G/DL (6.4-8.2); TRIGLYCERIDES 131 MG/DL (20-135); eGFR 21 ML/MIN
[2020-12-13 06:00] VITALS: BP 112/66
--- NOTE | 2020-12-13 06:19 | NUR ---
Problems reprioritized. Patient report given, questions answered & plan of care reviewed with ARON.
--- NOTE | 2020-12-13 06:27 | NUR ---
Patient in room PCU 3025. I have received report from Jordyn ALVAREZ and had the opportunity to ask questions and assume patient care.
[2020-12-13] MEDS: heparin, porcine 5000 units/ml vial SQ SCH ×2 (07:41→20:36)
[2020-12-13] MEDS: furosemide 10 MG/1 ML 10ml inj IV SCH (07:41)
[2020-12-13] MEDS: LIDOcaine 5% patch TP SCH ×2 (07:42→20:34)
[2020-12-13] MEDS: calcium acetate 667mg (PhosLO) capsule PO SCH ×3 (07:42→20:43)
[2020-12-13] MEDS: folic acid/vitamin B complex w/vitamin C 0.8mg tablet PO SCH (07:43)
[2020-12-13] MEDS: pantoprazole 40mg Tablet.DR PO SCH (07:43)
[2020-12-13] MEDS: CefTRIAXone/D5W-Rocephin 1gm 50 ML IV SCH (07:44)
[2020-12-13] MEDS: thyroid, pork 30mg tablet PO SCH (07:45)
[2020-12-13] MEDS: liothyronine sod 5mcg tablet PO SCH (07:47)
[2020-12-13] MEDS: K and/or MAG REPLACEMENT MC SCH ×2 (08:00→20:00)
[2020-12-13] MEDS ORDERED: spironolactone 50 MG tablet PO SCH (08:00)
[2020-12-13] MEDS: azithromycin/NS 500mg/250ml 250 ML IV SCH (09:37)
[2020-12-13 11:00] VITALS: BP 143/64
[2020-12-13] MEDS: insulin Lispro (HumaLOG) vial - multi-dose SQ SCH ×2 (13:31→18:59)
[2020-12-13] MEDS ORDERED: heparin 1,000 units/ml 10ml inj IV ONE (14:30)
[2020-12-13] MEDS ORDERED: heparin 1,000unit/ml 10ml vial 10 ML IV ONE (14:30)
[2020-12-13] MEDS ORDERED: heparin 1,000 units/ml 10ml inj HE ONE (14:35)
[2020-12-13 15:00] VITALS: BP 143/53
[2020-12-13 18:00] VITALS: BP 153/72
--- NOTE | 2020-12-13 18:16 | NUR ---
Problems reprioritized. Patient report given, questions answered & plan of care reviewed with Jocelyn ALVAREZ. Patient stable at transfer of care.
--- NOTE | 2020-12-13 18:18 | NUR ---
Patient in room PCU 3025. I have received report from Lcuy ALVAREZ and had the opportunity to ask questions and assume patient care.
--- NOTE | 2020-12-13 19:00 | NUR ---
Patient did not want the full 6 units of humalog coverage for dinner, but agreed to have half the amount of 3 units.
[2020-12-13] MEDS: pregabalin 75mg capsule PO SCH (20:43)
[2020-12-13] MEDS: quetiapine 100mg tablet PO SCH (20:44)
[2020-12-13] MEDS: ROPINIRole 1mg tablet PO SCH (20:44)
[2020-12-13] MEDS: diatr meglu/diatrizoate 30ml oral sol.-(3 dose) bottle PO SCH (20:55)
[2020-12-13] MEDS: insulin glargine (Lantus) pen - multi-dose SQ SCH (21:00)
--- NOTE | 2020-12-13 21:40 | NUR ---
Patient qualified for 1 unit humalog and 6 of lantus, but not given as patient is now NPO for upcoming CT scan.
[2020-12-13 22:45] VITALS: BP 155/60
[2020-12-14 02:00] VITALS: BP 127/55
[2020-12-14] MEDS: ipratropium/albuterol 3ml nebule NEB SCH ×6 (02:34→23:29)
[2020-12-14 06:00] VITALS: BP 126/51
[2020-12-14] MEDS: HYDROcodone/acetaminophen 10/325mg tab PO PRN ×3 (06:12→21:47)
--- NOTE | 2020-12-14 06:32 | NUR ---
Problems reprioritized. Patient report given, questions answered & plan of care reviewed with Lucy ALVAREZ. Addendum: 12/14/20 at 0633 [address]as RN Ct scan form given to Day KMI
--- NOTE | 2020-12-14 06:45 | NUR ---
Patient in room PCU 3025. I have received report from Debbi ALVAREZ and had the opportunity to ask questions and assume patient care.
[2020-12-14] MEDS: K and/or MAG REPLACEMENT MC SCH ×2 (08:00→20:00)
[2020-12-14 08:12] LABS: BASOPHILS % (AUTO) 0.1 % (0-1); EOSINOPHILS % (AUTO) 0 % (0-6); HEMATOCRIT 35.6 % (35.0-45.0); HEMOGLOBIN 11.9 g/dl (12.0-16.0); LYMPHOCYTES # (AUTO) 0.6 X10'3 (1.1-4.8); LYMPHOCYTES % (AUTO) 8.4 % (21-51); MEAN CORPUSCULAR HEMOGLOBIN 30.7 PG (27.0-31.0); MEAN CORPUSCULAR HGB CONC 33.5 g/dL (33.0-36.5); MEAN CORPUSCULAR VOLUME 91.9 FL (78-98); MEAN PLATELET VOLUME 10.2 FL (7.4-10.4); MONOCYTES # (AUTO) 0.5 X10'3 (0-0.9); MONOCYTES % (AUTO) 6.4 % (2-12); NEUTROPHILS # (AUTO) 6.5 X10'3 (1.8-7.7); NEUTROPHILS % (AUTO) 85.1 % (42-75); PLATELET COUNT 125 X10'3 (140-440); RED BLOOD COUNT 3.88 X10'6 (4.20-5.60); RED CELL DISTRIBUTION WIDTH 14.1 % (11.5-14.5); WHITE BLOOD COUNT 7.6 X10'3 (4.5-11.0)
[2020-12-14] MEDS: insulin Lispro (HumaLOG) vial - multi-dose SQ SCH ×3 (08:19→19:58)
[2020-12-14] MEDS: CefTRIAXone/D5W-Rocephin 1gm 50 ML IV SCH (08:24)
[2020-12-14] MEDS: methylPREDNISolone sod succ/PF 40mg inj. IV SCH ×2 (08:24→19:44)
[2020-12-14] MEDS: folic acid/vitamin B complex w/vitamin C 0.8mg tablet PO SCH (08:25)
[2020-12-14] MEDS: pantoprazole 40mg Tablet.DR PO SCH (08:25)
[2020-12-14] MEDS: liothyronine sod 5mcg tablet PO SCH (08:25)
[2020-12-14] MEDS: diatr meglu/diatrizoate 30ml oral sol.-(3 dose) bottle PO SCH ×2 (08:25→10:56)
[2020-12-14] MEDS: thyroid, pork 30mg tablet PO SCH (08:25)
[2020-12-14] MEDS: calcium acetate 667mg (PhosLO) capsule PO SCH ×3 (08:26→19:44)
[2020-12-14] MEDS: tobramycin/dexamethasone ophthalmic suspension EACHEYE SCH ×2 (08:27→19:42)
[2020-12-14] MEDS: heparin, porcine 5000 units/ml vial SQ SCH ×2 (08:28→19:44)
[2020-12-14 08:45] LABS: ALANINE AMINOTRANSFERASE 29 U/L (12-78); ALBUMIN 2.8 G/DL (3.4-5.0); ALBUMIN/GLOBULIN RATIO 0.7 (1.1-1.5); ALKALINE PHOSPHATASE 201 IU/L (46-116); ANION GAP 12 (8-16); ASPARTATE AMINO TRANSFERASE 20 U/L (10-37); BILIRUBIN,TOTAL 0.2 MG/DL (0.1-1.0); BLOOD UREA NITROGEN 49 MG/DL (7-18); BUN/CREATININE RATIO 18.1 (6.6-38.0); CALCIUM 7.7 MG/DL (8.5-10.1); CHLORIDE 98 MMOL/L (99-107); CREATININE 2.71 MG/DL (0.40-0.90); GLUCOSE 230 MG/DL (70-104); MAGNESIUM 1.9 MG/DL (1.5-2.4); PHOSPHORUS 4.3 MG/DL (2.3-4.5); POTASSIUM 5.1 MMOL/L (3.5-5.1); SODIUM 134 MMOL/L (135-145); TOTAL CARBON DIOXIDE 24.3 MMOL/L (24-32); TOTAL PROTEIN 6.9 G/DL (6.4-8.2); eGFR 18 ML/MIN
[2020-12-14] MEDS: azithromycin/NS 500mg/250ml 250 ML IV SCH (10:00)
[2020-12-14 11:00] VITALS: BP 132/51
[2020-12-14 15:00] VITALS: BP 107/47
[2020-12-14] MEDS: normal saline 1000ml 1,000 ML IV SCH (17:34)
--- NOTE | 2020-12-14 18:22 | NUR ---
Problems reprioritized. Patient report given, questions answered & plan of care reviewed with Joann ALVAREZ. Patient stable at transfer of care.
[2020-12-14] MEDS: quetiapine 100mg tablet PO SCH (19:45)
[2020-12-14] MEDS: ROPINIRole 1mg tablet PO SCH (19:45)
[2020-12-14] MEDS: pregabalin 75mg capsule PO SCH (19:46)
[2020-12-14] MEDS: lactobacillus rhamnosus 10,000 MMU CELLS/CAPSULE PO SCH (19:49)
[2020-12-14 20:06] VITALS: BP 153/66
[2020-12-14] MEDS: insulin glargine (Lantus) pen - multi-dose SQ SCH (21:43)
[2020-12-15] VITALS (8 sets, daily range): BP systolic 106–154; BP diastolic 54–78
[2020-12-15] MEDS: benzonatate 100mg capsule PO SCH ×4 (02:09→22:52)
[2020-12-15] MEDS: ipratropium/albuterol 3ml nebule NEB SCH ×6 (02:58→23:49)
[2020-12-15] MEDS: HYDROcodone/acetaminophen 10/325mg tab PO PRN ×5 (03:38→23:24)
[2020-12-15] MEDS: pantoprazole 40mg Tablet.DR PO SCH (07:34)
[2020-12-15] MEDS: calcium acetate 667mg (PhosLO) capsule PO SCH ×3 (07:34→22:53)
[2020-12-15] MEDS: lactobacillus rhamnosus 10,000 MMU CELLS/CAPSULE PO SCH ×2 (07:34→22:51)
[2020-12-15] MEDS: folic acid/vitamin B complex w/vitamin C 0.8mg tablet PO SCH (07:34)
[2020-12-15] MEDS: liothyronine sod 5mcg tablet PO SCH (07:34)
[2020-12-15] MEDS: CefTRIAXone/D5W-Rocephin 1gm 50 ML IV SCH (07:34)
[2020-12-15] MEDS: methylPREDNISolone sod succ/PF 40mg inj. IV SCH (07:34)
[2020-12-15] MEDS: thyroid, pork 30mg tablet PO SCH (07:34)
[2020-12-15] MEDS: tobramycin/dexamethasone ophthalmic suspension EACHEYE SCH ×2 (07:35→22:50)
[2020-12-15] MEDS: heparin, porcine 5000 units/ml vial SQ SCH ×2 (07:37→22:52)
[2020-12-15] MEDS: LIDOcaine 5% patch TP SCH (08:00)
[2020-12-15] MEDS ORDERED: LIDOcaine 1% (10mg/ml) 2ml vial SQ ONE (08:00)
[2020-12-15] MEDS: K and/or MAG REPLACEMENT MC SCH ×2 (08:00→20:00)
[2020-12-15] MEDS: azithromycin/NS 500mg/250ml 250 ML IV SCH (08:58)
[2020-12-15] MEDS: insulin Lispro (HumaLOG) vial - multi-dose SQ SCH ×2 (09:07→13:16)
[2020-12-15 11:52] LABS: BASOPHILS % (AUTO) 0.1 % (0-1); EOSINOPHILS % (AUTO) 0 % (0-6); HEMATOCRIT 37.2 % (35.0-45.0); HEMOGLOBIN 12.3 g/dl (12.0-16.0); LYMPHOCYTES # (AUTO) 0.3 X10'3 (1.1-4.8); LYMPHOCYTES % (AUTO) 4.7 % (21-51); MEAN CORPUSCULAR HEMOGLOBIN 30.6 PG (27.0-31.0); MEAN CORPUSCULAR VOLUME 92.7 FL (78-98); MONOCYTES # (AUTO) 0.3 X10'3 (0-0.9); NEUTROPHILS # (AUTO) 5.8 X10'3 (1.8-7.7); NEUTROPHILS % (AUTO) 91.2 % (42-75); PLATELET COUNT 127 X10'3 (140-440); RED BLOOD COUNT 4.01 X10'6 (4.20-5.60); RED CELL DISTRIBUTION WIDTH 15.1 % (11.5-14.5); WHITE BLOOD COUNT 6.3 X10'3 (4.5-11.0)
[2020-12-15 12:06] LABS: ALANINE AMINOTRANSFERASE 33 U/L (12-78); ALBUMIN 2.8 G/DL (3.4-5.0); ALBUMIN/GLOBULIN RATIO 0.7 (1.1-1.5); ALKALINE PHOSPHATASE 218 IU/L (46-116); ANION GAP 9 (8-16); ASPARTATE AMINO TRANSFERASE 27 U/L (10-37); BILIRUBIN,TOTAL 0.2 MG/DL (0.1-1.0); BLOOD UREA NITROGEN 62 MG/DL (7-18); BUN/CREATININE RATIO 23.8 (6.6-38.0); CALCIUM 7.6 MG/DL (8.5-10.1); CHLORIDE 99 MMOL/L (99-107); GLUCOSE 310 MG/DL (70-104); PHOSPHORUS 3.7 MG/DL (2.3-4.5); SODIUM 131 MMOL/L (135-145); TOTAL CARBON DIOXIDE 23.4 MMOL/L (24-32); eGFR 19 ML/MIN
[2020-12-15 12:12] LABS: BFSOURCE RIGHT PLEURAL FLD; PLEURAL FLUID PH 7.403 (7.63-7.65)
[2020-12-15 12:17] LABS: POTASSIUM 6.1 MMOL/L (3.5-5.1)
--- NOTE | 2020-12-15 12:20 | NUR ---
Paged Dr. Lombardo PAGER ID: [phone] MESSAGE: [phone] Daya Frazier. Potassium 6.1. [facility] Crystal
[2020-12-15] MEDS ORDERED: sodium polystyrene sulfonate 15gm/60ml oral suspension PO ONE (12:25)
[2020-12-15 13:07] LABS: BFAPPEAR CLEAR; BFCOLOR YELLOW; LYMPHOCYTES,BODY FLUID 68 %; MONOCYTES,BODY FLUID 19 %; NEUTROPHILS,BODY FLUID 13 %
[2020-12-15 13:08] LABS: BF RBC COUNT 365 /CU MM; BF WBC COUNT 295 /CU MM (0-1000); BFVOLUME 60 ML
[2020-12-15 13:14] LABS: GLUCOSE,BODY FLUID 242 MG/DL; LDH,BODY FLUID 90 U/L; TOTAL PROTEIN,BODY FLUID 3.2 G/DL
[2020-12-15] MEDS ORDERED: clonazePAM 0.5mg tablet PO PRN (16:46)
--- NOTE | 2020-12-15 18:23 | NUR ---
Problems reprioritized. Patient report given, questions answered & plan of care reviewed with Yeny ALVAREZ. Patient stable at transfer of care.
--- NOTE | 2020-12-15 18:25 | NUR ---
Patient in room PCU 3025. I have received report from KIM Quintanilla and had the opportunity to ask questions and assume patient care.
[2020-12-15] MEDS: pregabalin 75mg capsule PO SCH (22:53)
[2020-12-15] MEDS: quetiapine 100mg tablet PO SCH (22:54)
[2020-12-15] MEDS: ROPINIRole 1mg tablet PO SCH (22:54)
[2020-12-15] MEDS: insulin glargine (Lantus) pen - multi-dose SQ SCH (23:11)
[2020-12-16 02:00] VITALS: BP 107/52
[2020-12-16] MEDS: ipratropium/albuterol 3ml nebule NEB SCH ×2 (02:59→08:00)
[2020-12-16] MEDS: benzonatate 100mg capsule PO SCH ×2 (03:46→08:35)
[2020-12-16 06:00] VITALS: BP 123/49
--- NOTE | 2020-12-16 06:31 | NUR ---
Problems reprioritized. Patient bedside report given, questions answered & plan of care reviewed with KIM Quintanilla.
[2020-12-16 06:38] LABS: BASOPHILS % (AUTO) 0 % (0-1); EOSINOPHILS % (AUTO) 0.2 % (0-6); HEMATOCRIT 37.7 % (35.0-45.0); HEMOGLOBIN 12.5 g/dl (12.0-16.0); LYMPHOCYTES % (AUTO) 19.4 % (21-51); MEAN CORPUSCULAR HEMOGLOBIN 30.9 PG (27.0-31.0); MEAN CORPUSCULAR HGB CONC 33.1 g/dL (33.0-36.5); MEAN CORPUSCULAR VOLUME 93.4 FL (78-98); MEAN PLATELET VOLUME 10.1 FL (7.4-10.4); MONOCYTES # (AUTO) 0.5 X10'3 (0-0.9); MONOCYTES % (AUTO) 10.6 % (2-12); NEUTROPHILS # (AUTO) 3.4 X10'3 (1.8-7.7); NEUTROPHILS % (AUTO) 69.8 % (42-75); PLATELET COUNT 122 X10'3 (140-440); RED BLOOD COUNT 4.04 X10'6 (4.20-5.60); RED CELL DISTRIBUTION WIDTH 15.2 % (11.5-14.5); WHITE BLOOD COUNT 4.9 X10'3 (4.5-11.0)
[2020-12-16 07:01] LABS: ALANINE AMINOTRANSFERASE 50 U/L (12-78); ALBUMIN 2.7 G/DL (3.4-5.0); ALBUMIN/GLOBULIN RATIO 0.7 (1.1-1.5); ALKALINE PHOSPHATASE 219 IU/L (46-116); ANION GAP 9 (8-16); ASPARTATE AMINO TRANSFERASE 52 U/L (10-37); BILIRUBIN,TOTAL 0.2 MG/DL (0.1-1.0); BLOOD UREA NITROGEN 30 MG/DL (7-18); BUN/CREATININE RATIO 12.1 (6.6-38.0); CALCIUM 7.9 MG/DL (8.5-10.1); CHLORIDE 102 MMOL/L (99-107); CREATININE 2.48 MG/DL (0.40-0.90); GLUCOSE 131 MG/DL (70-104); MAGNESIUM 1.9 MG/DL (1.5-2.4); PHOSPHORUS 3.6 MG/DL (2.3-4.5); POTASSIUM 4.4 MMOL/L (3.5-5.1); SODIUM 140 MMOL/L (135-145); TOTAL CARBON DIOXIDE 28.8 MMOL/L (24-32); TOTAL PROTEIN 6.6 G/DL (6.4-8.2); eGFR 20 ML/MIN
[2020-12-16] MEDS ORDERED: methylPREDNISolone sod succ/PF 40mg inj. IV SCH (08:00)
[2020-12-16] MEDS: K and/or MAG REPLACEMENT MC SCH (08:00)
[2020-12-16] MEDS: thyroid, pork 30mg tablet PO SCH (08:34)
[2020-12-16] MEDS: calcium acetate 667mg (PhosLO) capsule PO SCH (08:34)
[2020-12-16] MEDS: folic acid/vitamin B complex w/vitamin C 0.8mg tablet PO SCH (08:35)
[2020-12-16] MEDS: heparin, porcine 5000 units/ml vial SQ SCH (08:36)
[2020-12-16] MEDS: tobramycin/dexamethasone ophthalmic suspension EACHEYE SCH (08:36)
[2020-12-16] MEDS: CefTRIAXone/D5W-Rocephin 1gm 50 ML IV SCH (08:36)
[2020-12-16] MEDS: HYDROcodone/acetaminophen 10/325mg tab PO PRN (08:36)
[2020-12-16] MEDS: liothyronine sod 5mcg tablet PO SCH (08:47)
[2020-12-16] MEDS: pantoprazole 40mg Tablet.DR PO SCH (08:47)
[2020-12-16] MEDS: lactobacillus rhamnosus 10,000 MMU CELLS/CAPSULE PO SCH (08:47)
[2020-12-16] MEDS: LIDOcaine 5% patch TP SCH (08:51)
[2020-12-16] MEDS: insulin Lispro (HumaLOG) vial - multi-dose SQ SCH (09:40)
[2020-12-16] MEDS: azithromycin/NS 500mg/250ml 250 ML IV SCH (09:47)
[2020-12-16] MEDS ORDERED: FURO-150 PO (10:23)
[2020-12-16] MEDS ORDERED: BENZ-16 PO (10:23)
[2020-12-16] MEDS ORDERED: CEFD300C3 PO (10:23)
[2020-12-16] MEDS ORDERED: AZIT500T9 PO (10:23)
[2020-12-16] MEDS ORDERED: ALBU8HFA PO (10:23)
[2020-12-16] MEDS ORDERED: LACT1CAP26 PO (10:23)
--- NOTE | 2020-12-16 11:30 | NUR ---
Patient safe for discharge per MD order. Medications and discharge instructions discussed with ability for patient and family to ask questions. PIV discontinued cannula intact. Telemetry discontinued. Wheeled to lobby by nursing staff. Patient left with family in private vehicle.
== END 2020-12-16 11:30 | disposition home or self-care (01) | DRG 193 ==
LOC: ER 11:56 → ED HOLD 17:28 → EDBEDREQ 19:28 → PCU 3S 21:30
PROVIDERS: ADMIT Family Medicine; ATTEND Family Medicine
PROC: 0W993ZZ Drainage of Right Pleural Cavity, Percutaneous Approach (ICD-10-PCS; principal; 2020-12-15)
PROC: 5A1D70Z Performance of Urinary Filtration, Intermittent, Less than 6 Hours Per Day (ICD-10-PCS; 2020-12-15)
DX: J18.9 Pneumonia, unspecified organism (principal); N18.6 End stage renal disease; J90 Pleural effusion, not elsewhere classified; E03.9 Hypothyroidism, unspecified; E11.22 Type 2 diabetes mellitus with diabetic chronic kidney disease; F32.9 Major depressive disorder, single episode, unspecified; G89.29 Other chronic pain; K76.9 Liver disease, unspecified; K83.9 Disease of biliary tract, unspecified; M54.9 Dorsalgia, unspecified; E11.42 Type 2 diabetes mellitus with diabetic polyneuropathy; E11.649 Type 2 diabetes mellitus with hypoglycemia without coma; E78.00 Pure hypercholesterolemia, unspecified; G25.81 Restless legs syndrome; Z96.651 Presence of right artificial knee joint; E87.5 Hyperkalemia; G47.00 Insomnia, unspecified; Z60.2 Problems related to living alone; K21.9 Gastro-esophageal reflux disease without esophagitis; K74.60 Unspecified cirrhosis of liver; Z79.890 Hormone replacement therapy; I25.2 Old myocardial infarction; Z80.3 Family history of malignant neoplasm of breast; Z86.14 Personal history of Methicillin resistant Staphylococcus aureus infection; Z99.2 Dependence on renal dialysis; Z88.2 Allergy status to sulfonamides; Z88.8 Allergy status to other drugs, medicaments and biological substances; Z91.040 Latex allergy status; Z90.49 Acquired absence of other specified parts of digestive tract
CPT/HCPCS: 32555; 36415; 71046; 71250; 74176; 80053; 80061; 81001; 82140; 82945; 82948; 83036; 83605; 83615; 83735; 83880; 83986; 84100; 84145; 84157; 84443; 84484; 85025; 85610; 87040; 87070; 87081; 89051; 93005; 93306; 94640; 94667; 94668; 94760; 96375; 97161; 97530; 99285; G0257; G0378; J0456; J0696; J1644; J1815; J1940; J2001; J2270; J2405; J2920; J2930; J7030; Q9963

== ENCOUNTER 2020-12-24 07:35 | Emergency (ER) | payer MEDICARE, MEDICAID, OTHER ==
[~2020-12-24] VITALS: Ht 154.9 cm; Wt 73.2 kg
[~2020-12-24 07:35] MED LIST changes: +ALBU8HFA PO; +AZIT500T9 PO; +BENZ-16 PO; -CALC3.7S5 BOTHNARES; +CEFD300C3 PO; -DRY EYE EACHEYE; +FURO-150 PO; -FURO40TA4 PO; +LACT1CAP26 PO; -METO5TAB85 PO; -MIDO10TA PO; +PEG15DRO5 LEFTEYE
[2020-12-24] MEDS ORDERED: oxyCODONE/APAP 10/325mg tablet PO ONE (08:35)
[2020-12-24 11:38] VITALS: BP 98/63
== END 2020-12-24 11:40 | disposition home or self-care (01) ==
LOC: ER 07:36
DX: R07.89 Other chest pain (principal); R10.84 Generalized abdominal pain; E78.00 Pure hypercholesterolemia, unspecified; I25.2 Old myocardial infarction; K21.9 Gastro-esophageal reflux disease without esophagitis; E11.42 Type 2 diabetes mellitus with diabetic polyneuropathy; G89.29 Other chronic pain; F32.9 Major depressive disorder, single episode, unspecified; Z86.14 Personal history of Methicillin resistant Staphylococcus aureus infection; Z90.49 Acquired absence of other specified parts of digestive tract; Z98.890 Other specified postprocedural states; Z60.2 Problems related to living alone; Z56.0 Unemployment, unspecified; Z88.2 Allergy status to sulfonamides; Z88.6 Allergy status to analgesic agent; Z88.1 Allergy status to other antibiotic agents; Z91.040 Latex allergy status; Z79.2 Long term (current) use of antibiotics; Z79.4 Long term (current) use of insulin; Z79.899 Other long term (current) drug therapy
CPT/HCPCS: 71250; 74176; 99284

== ENCOUNTER 2021-01-02 11:14 | Emergency (ER) | payer MEDICARE, MEDICAID, OTHER ==
[~2021-01-02] VITALS: Ht 154.9 cm; Wt 76.8 kg
--- NOTE | 2021-01-02 12:39 | NUR ---
PATIENT STATES SHE RAN OUT OF HER PERCOCET PRESCRIPTION YESTERDAY. SINCE THAT TIME HER RIGHT RIB/ABDOMINAL PAIN HAS CONTINUED AT 10/10 PAIN.
[2021-01-02 13:29] VITALS: BP 127/66
[2021-01-02] MEDS ORDERED: LIDOcaine 5% patch TP STA (13:33)
[2021-01-02] MEDS ORDERED: HYDROcodone/acetaminophen 10/325mg tab PO ONE (13:35)
== END 2021-01-02 14:14 | disposition home or self-care (01) ==
LOC: ER 11:15
DX: R07.81 Pleurodynia (principal); R05 Cough; E11.65 Type 2 diabetes mellitus with hyperglycemia; E78.00 Pure hypercholesterolemia, unspecified; I25.2 Old myocardial infarction; K21.9 Gastro-esophageal reflux disease without esophagitis; G89.29 Other chronic pain; F32.9 Major depressive disorder, single episode, unspecified; Z87.01 Personal history of pneumonia (recurrent); Z86.14 Personal history of Methicillin resistant Staphylococcus aureus infection; Z90.49 Acquired absence of other specified parts of digestive tract; Z98.890 Other specified postprocedural states; Z60.2 Problems related to living alone; Z56.0 Unemployment, unspecified; Z88.8 Allergy status to other drugs, medicaments and biological substances; Z79.2 Long term (current) use of antibiotics; Z79.4 Long term (current) use of insulin; Z79.899 Other long term (current) drug therapy
CPT/HCPCS: 93005; 99283

== ENCOUNTER 2021-06-10 08:32 | Inpatient (IN) | payer MEDICARE, MEDICAID, OTHER ==
[~2021-06-10] VITALS: Ht 154.9 cm; Wt 75.9 kg
[~2021-06-10 08:32] MED LIST changes: -ALBU8HFA PO; -CEFD300C3 PO; -FURO-150 PO; -PEG15DRO5 LEFTEYE; +PEG15DRO6 LEFTEYE; -QUET300T19 PO; +QUET300T20 PO
--- NOTE | 2021-06-10 09:31 | NUR ---
PT PLACED ON CONTINUOUS CARDIAC MONITORING, AUTO BP CUFF AND PULSE OX.
[2021-06-10 09:44] LABS: BASOPHILS % (AUTO) 0.7 % (0-1); EOSINOPHILS # (AUTO) 0.2 X10'3 (0-0.9); EOSINOPHILS % (AUTO) 4.2 % (0-6); HEMATOCRIT 40.2 % (35.0-45.0); HEMOGLOBIN 13.4 g/dl (12.0-16.0); LYMPHOCYTES # (AUTO) 1.2 X10'3 (1.1-4.8); LYMPHOCYTES % (AUTO) 22.1 % (21-51); MEAN CORPUSCULAR HEMOGLOBIN 30.8 PG (27.0-31.0); MEAN CORPUSCULAR HGB CONC 33.4 g/dL (33.0-36.5); MEAN CORPUSCULAR VOLUME 92.3 FL (78-98); MEAN PLATELET VOLUME 9.2 FL (7.4-10.4); MONOCYTES # (AUTO) 0.4 X10'3 (0-0.9); MONOCYTES % (AUTO) 7.8 % (2-12); NEUTROPHILS # (AUTO) 3.6 X10'3 (1.8-7.7); NEUTROPHILS % (AUTO) 65.2 % (42-75); PLATELET COUNT 141 X10'3 (140-440); RED BLOOD COUNT 4.35 X10'6 (4.20-5.60); WHITE BLOOD COUNT 5.5 X10'3 (4.5-11.0)
[2021-06-10 09:48] LABS: ALANINE AMINOTRANSFERASE 49 U/L (12-78); ALBUMIN 3.2 G/DL (3.4-5.0); ALBUMIN/GLOBULIN RATIO 0.7 (1.1-1.5); ALKALINE PHOSPHATASE 358 IU/L (46-116); ANION GAP 8 (8-16); ASPARTATE AMINO TRANSFERASE 59 U/L (10-37); BILIRUBIN,TOTAL 0.6 MG/DL (0.1-1.0); BLOOD UREA NITROGEN 27 MG/DL (7-18); BUN/CREATININE RATIO 12.9 (6.6-38.0); CALCIUM 8.7 MG/DL (8.5-10.1); CHLORIDE 102 MMOL/L (99-107); CREATININE 2.09 MG/DL (0.40-0.90); GLUCOSE 130 MG/DL (70-104); SODIUM 139 MMOL/L (135-145); TOTAL CARBON DIOXIDE 29.4 MMOL/L (24-32); TOTAL PROTEIN 8.1 G/DL (6.4-8.2); eGFR 24 ML/MIN
[2021-06-10 09:56] LABS: MAGNESIUM 1.9 MG/DL (1.5-2.4)
--- NOTE | 2021-06-10 11:51 | NUR ---
Up to void. Unsteady gait. Wheezing.
[2021-06-10] MEDS ORDERED: acetaminophen 325mg tablet PO PRN ×2 (12:10)
[2021-06-10] MEDS ORDERED: dextrose 50%-water 50ml dispensing syringe IV PRN ×2 (12:10)
[2021-06-10] MEDS ORDERED: insulin Lispro (HumaLOG) vial - multi-dose SQ SCH (12:10)
[2021-06-10] MEDS ORDERED: HYDROcodone/acetaminophen 5mg/325mg tablet PO PRN (12:10)
[2021-06-10] MEDS ORDERED: morphine 2 MG/ML inj. syringe IV PRN ×2 (12:10)
[2021-06-10] MEDS ORDERED: MESSAGE TO PHARMACY PO ONE (12:10)
[2021-06-10] MEDS ORDERED: magnesium hydroxide 30ml (MOM) UD suspension PO PRN (12:10)
[2021-06-10] MEDS ORDERED: mag hydrox/Alum hydrox/simeth 30ml oral suspension PO PRN (12:10)
[2021-06-10] MEDS ORDERED: dextrose ORAL solution 15 GM/59 ML bottle PO PRN ×2 (12:10)
[2021-06-10] MEDS ORDERED: glucagon, human recombinant 1mg kit SUBCUT PRN (12:10)
[2021-06-10] MEDS ORDERED: ondansetron/PF 4mg/2ml inj IV PRN (12:10)
[2021-06-10] MEDS ORDERED: CALC667T6 PO (12:34)
[2021-06-10] MEDS ORDERED: FURO20TA4 PO (12:34)
[2021-06-10 12:49] LABS: HEMOGLOBIN A1C 6.3 % (4.5-6.2)
--- NOTE | 2021-06-10 13:10 | NUR ---
CALLED DIETARY TO REQUEST LUNCH TRAY.
--- NOTE | 2021-06-10 13:42 | NUR ---
PT WORKING TO BREATHE; O2 SATS 97% ON 4L NC; PT WITH AIR HUNGER AND FEELS LIKE SHE CANNOT BREATHE; PAGED DR. MELVIN AGAIN FOR POSSIBLE NEB ORDER.
--- NOTE | 2021-06-10 14:06 | NUR ---
PT MEDICATED PER ORDER. MEAL TRAY TO BEDSIDE. RT PAGED FOR EVAL. AWAITING THEM AT BEDSIDE.
--- NOTE | 2021-06-10 14:10 | NUR ---
RT PAGED TO EVAL BED 2. UPON ASSESMENT, PT STATES SHE IS UPSET BECAUSE SHE DOESNT FEEL LIKE SHE IS RECEIVING ADEQUATE CARE. PT STATES SHE IS HAVING TROUBLE BREATHING. PATIENT ALSO STATES SHE IS WAITING FOR IR TO COME AND DRAIN THE FLUID FROM HER LUNGS. BS ARE DIMINISHED BUT CLEAR. PT SPO2 97% ON 3LPM.
--- NOTE | 2021-06-10 14:46 | NUR ---
SPOKE WITH RESPIRATORY WHO STATES THAT PT DOES NOT NEED A BREATHING TX AT THIS TIME PT IS NOT WHEEZING AND THAT PT NEEDS FLUID TAKEN OFF HER LUNGS. PT REMAINS UNCOMFORTABLE. NO ORDER FOR IR NOTED FOR POSSIBLE THORACENTESIS.
--- NOTE | 2021-06-10 14:56 | NUR ---
PT STATES THAT RESPIRATORY DID NOT COME IN HER ROOM TO ASSESS HER AND IS REQUESTING HER TO COME DOWN FOR HER CARE. RESPIRATORY PAGED AGAIN TO REQUEST RESPIRATORY AT BEDSIDE.
--- NOTE | 2021-06-10 15:03 | NUR ---
NEW ORDER FOR IR NOTED AT THIS TIME. SOO WITH RESPIRATORY TO BEDSIDE TO ASSESS PT. IR TO BEDSIDE FOR CONSENTS FOR THORACENTESIS AND TO TRANSPORT TO IR.
--- NOTE | 2021-06-10 15:05 | NUR ---
CHARGE NURSE PRESENT. PT STATES THAT ALL ER STAFF HAVE PROVIDED GREAT CARE TO HER AND FELT THAT RESPIRATORY DID NOT PROVIDE ADEQUATE CARE WHILE IN ED.
--- NOTE | 2021-06-10 15:09 | NUR ---
PT OFF UNIT TO IR.
[2021-06-10 15:20] VITALS: BP 192/76
[2021-06-10 15:27] VITALS: BP 156/85
--- NOTE | 2021-06-10 15:32 | NUR ---
PT RETURNED FROM IR.
[2021-06-10] MEDS ORDERED: calcium acetate 667mg (phosLO) tablet PO PRN (16:10)
[2021-06-10] MEDS ORDERED: furosemide 10 MG/1 ML 10ml inj IV ONE (16:10)
[2021-06-10] MEDS ORDERED: HYDROcodone/acetaminophen 10/325mg tab PO PRN (16:10)
--- NOTE | 2021-06-10 17:24 | NUR ---
PT REMAINS WITH AUDIBLE WHEEZES POSTERIORLY. PT MEDICATED WITH MORPHINE FOR PAIN. AWAITING RESP ORDERS FROM ADMISSION DOC.
--- NOTE | 2021-06-10 18:25 | NUR ---
PT CURRENTLY EATING AT BEDSIDE. UNABLE TO TAKE AC BLOOD GLUCOSE. WILL TAKE BG HS TONIGHT.
[2021-06-10] MEDS: docusate sod 100mg capsule PO SCH (18:35)
[2021-06-10] MEDS: calcium acetate 667mg (PhosLO) capsule PO SCH (18:40)
[2021-06-10] MEDS: HYDROcodone/acetaminophen 10/325mg tab PO PRN (20:41)
[2021-06-10] MEDS ORDERED: ROPINIROLE HCL PO SCH (21:00)
[2021-06-10] MEDS ORDERED: PREGABALIN PO SCH (21:00)
[2021-06-10] MEDS: insulin glargine (Lantus) pen - multi-dose SQ SCH (21:00)
[2021-06-10] MEDS ORDERED: pregabalin 75mg capsule PO ONE (21:30)
[2021-06-10] MEDS ORDERED: ROPINIRole 1mg tablet PO ONE (21:30)
[2021-06-10] MEDS: clonazePAM 0.5mg tablet PO PRN (21:51)
[2021-06-10] MEDS: QUETIAPINE 150 MG TAB.SR.24H PO SCH (22:02)
[2021-06-11] VITALS (7 sets, daily range): BP systolic 105–128; BP diastolic 40–53
[2021-06-11] MEDS: HYDROcodone/acetaminophen 10/325mg tab PO PRN ×3 (00:56→20:54)
--- NOTE | 2021-06-11 06:38 | NUR ---
Problems reprioritized. Patient report given, questions answered & plan of care reviewed with KIM BEAVERS.
--- NOTE | 2021-06-11 07:28 | NUR ---
Diabetes consult: Noted A1C 6.3 DM ed not indicated at this time. Addendum: 06/11/21 at [address] Amended: Links added.
[2021-06-11] MEDS: calcium acetate 667mg (PhosLO) capsule PO SCH ×3 (07:38→18:05)
[2021-06-11] MEDS: docusate sod 100mg capsule PO SCH ×2 (07:39→20:00)
[2021-06-11 08:19] LABS: BASOPHILS % (AUTO) 0.9 % (0-1); EOSINOPHILS # (AUTO) 0.2 X10'3 (0-0.9); EOSINOPHILS % (AUTO) 5.9 % (0-6); HEMATOCRIT 36.8 % (35.0-45.0); LYMPHOCYTES # (AUTO) 1.6 X10'3 (1.1-4.8); LYMPHOCYTES % (AUTO) 37.5 % (21-51); MEAN CORPUSCULAR HEMOGLOBIN 30.5 PG (27.0-31.0); MEAN CORPUSCULAR HGB CONC 32.6 g/dL (33.0-36.5); MEAN CORPUSCULAR VOLUME 93.4 FL (78-98); MEAN PLATELET VOLUME 9.4 FL (7.4-10.4); MONOCYTES # (AUTO) 0.4 X10'3 (0-0.9); MONOCYTES % (AUTO) 9.5 % (2-12); NEUTROPHILS # (AUTO) 1.9 X10'3 (1.8-7.7); NEUTROPHILS % (AUTO) 46.2 % (42-75); PLATELET COUNT 127 X10'3 (140-440); RED BLOOD COUNT 3.94 X10'6 (4.20-5.60); WHITE BLOOD COUNT 4.2 X10'3 (4.5-11.0)
[2021-06-11 08:25] LABS: ALBUMIN 2.4 G/DL (3.4-5.0); ANION GAP 6 (8-16); BLOOD UREA NITROGEN 34 MG/DL (7-18); BUN/CREATININE RATIO 12.1 (6.6-38.0); CALCIUM 8.2 MG/DL (8.5-10.1); CHLORIDE 107 MMOL/L (99-107); GLUCOSE 67 MG/DL (70-104); SODIUM 140 MMOL/L (135-145); TOTAL CARBON DIOXIDE 27.1 MMOL/L (24-32); eGFR 17 ML/MIN
[2021-06-11] MEDS ORDERED: furosemide 40mg/4ml inj IV ONE (14:20)
--- NOTE | 2021-06-11 18:44 | NUR ---
Problems reprioritized. Patient report given, questions answered & plan of care reviewed with Sam ALVAREZ.
--- NOTE | 2021-06-11 18:45 | NUR ---
Patient in room PCU 3013. I have received report from FRANCK ALVAREZ and had the opportunity to ask questions and assume patient care.
[2021-06-11] MEDS ORDERED: ipratropium/albuterol 3ml nebule NEB PRN (18:50)
[2021-06-11] MEDS: QUETIAPINE 150 MG TAB.SR.24H PO SCH (20:40)
[2021-06-11] MEDS: clonazePAM 0.5mg tablet PO PRN (20:40)
[2021-06-11] MEDS: furosemide 40mg/4ml inj IV SCH (20:42)
[2021-06-11] MEDS ORDERED: pregabalin 75mg capsule PO SCH (21:00)
[2021-06-11] MEDS ORDERED: ROPINIRole 1mg tablet PO SCH (21:00)
[2021-06-11] MEDS: insulin glargine (Lantus) pen - multi-dose SQ SCH (22:05)
[2021-06-12 02:00] VITALS: BP 101/54
[2021-06-12] MEDS: ipratropium/albuterol 3ml nebule NEB SCH ×2 (02:31→09:41)
[2021-06-12 06:00] VITALS: BP 102/37
--- NOTE | 2021-06-12 06:21 | NUR ---
Problems reprioritized. Patient report given, questions answered & plan of care reviewed with FRANCK ALVAREZ.
[2021-06-12 07:08] LABS: BASOPHILS % (AUTO) 0.9 % (0-1); EOSINOPHILS # (AUTO) 0.2 X10'3 (0-0.9); EOSINOPHILS % (AUTO) 5.2 % (0-6); HEMATOCRIT 40.5 % (35.0-45.0); HEMOGLOBIN 13.2 g/dl (12.0-16.0); LYMPHOCYTES # (AUTO) 1.2 X10'3 (1.1-4.8); LYMPHOCYTES % (AUTO) 33.1 % (21-51); MEAN CORPUSCULAR HEMOGLOBIN 30.2 PG (27.0-31.0); MEAN CORPUSCULAR HGB CONC 32.5 g/dL (33.0-36.5); MEAN CORPUSCULAR VOLUME 93.1 FL (78-98); MEAN PLATELET VOLUME 9.1 FL (7.4-10.4); MONOCYTES # (AUTO) 0.3 X10'3 (0-0.9); MONOCYTES % (AUTO) 7.5 % (2-12); NEUTROPHILS % (AUTO) 53.3 % (42-75); PLATELET COUNT 140 X10'3 (140-440); RED BLOOD COUNT 4.35 X10'6 (4.20-5.60); RED CELL DISTRIBUTION WIDTH 14.9 % (11.5-14.5); WHITE BLOOD COUNT 3.7 X10'3 (4.5-11.0)
[2021-06-12 07:20] LABS: ALBUMIN 2.7 G/DL (3.4-5.0); ANION GAP 9 (8-16); BLOOD UREA NITROGEN 51 MG/DL (7-18); BUN/CREATININE RATIO 15.7 (6.6-38.0); CALCIUM 8.5 MG/DL (8.5-10.1); CHLORIDE 102 MMOL/L (99-107); CREATININE 3.24 MG/DL (0.40-0.90); GLUCOSE 124 MG/DL (70-104); POTASSIUM 5.1 MMOL/L (3.5-5.1); SODIUM 137 MMOL/L (135-145); TOTAL CARBON DIOXIDE 26.1 MMOL/L (24-32); eGFR 14 ML/MIN
[2021-06-12] MEDS: furosemide 40mg/4ml inj IV SCH (07:58)
[2021-06-12] MEDS: calcium acetate 667mg (PhosLO) capsule PO SCH (07:59)
[2021-06-12] MEDS: docusate sod 100mg capsule PO SCH (08:00)
--- NOTE | 2021-06-12 11:08 | NUR ---
Patient stable for discharge. Discharge instructions given and patient verbalized understanding. PIV removed with catheter intact. Telemetry removed. All belongings gathered and patient transferred via wheelchair to family member's personal car.
== END 2021-06-12 10:55 | disposition home or self-care (01) | DRG 189 ==
LOC: ER 08:33 → ED HOLD 12:14 → PCU 3S 06-11 00:53
PROVIDERS: ADMIT Internal Medicine; ATTEND Internal Medicine
PROC: 0W993ZZ Drainage of Right Pleural Cavity, Percutaneous Approach (ICD-10-PCS; 2021-06-10)
PROC: 5A1D70Z Performance of Urinary Filtration, Intermittent, Less than 6 Hours Per Day (ICD-10-PCS; principal; 2021-06-12)
DX: J81.0 Acute pulmonary edema (principal); N18.6 End stage renal disease; J90 Pleural effusion, not elsewhere classified; E11.22 Type 2 diabetes mellitus with diabetic chronic kidney disease; E78.00 Pure hypercholesterolemia, unspecified; K21.9 Gastro-esophageal reflux disease without esophagitis; Z96.659 Presence of unspecified artificial knee joint; E11.42 Type 2 diabetes mellitus with diabetic polyneuropathy; Z20.822 Contact with and (suspected) exposure to COVID-19; F32.A Depression, unspecified; K74.60 Unspecified cirrhosis of liver; F41.9 Anxiety disorder, unspecified; E66.9 Obesity, unspecified; Z68.31 Body mass index [BMI] 31.0-31.9, adult; I25.2 Old myocardial infarction; Z99.2 Dependence on renal dialysis; Z87.01 Personal history of pneumonia (recurrent); Z86.73 Personal history of transient ischemic attack (TIA), and cerebral infarction without residual deficits; Z90.49 Acquired absence of other specified parts of digestive tract; Z88.8 Allergy status to other drugs, medicaments and biological substances; Z79.899 Other long term (current) drug therapy; Z56.0 Unemployment, unspecified; Z86.14 Personal history of Methicillin resistant Staphylococcus aureus infection
CPT/HCPCS: 32555; 36415; 71045; 80048; 80053; 82948; 83036; 83605; 83735; 83880; 84145; 84484; 85025; 87040; 87081; 87635; 93005; 94640; 94760; 99291; C9803; G0378; J1815; J1940; J2270

== ENCOUNTER 2021-07-28 13:38 | Emergency (ER) | payer MEDICARE, MEDICAID, OTHER ==
[~2021-07-28] VITALS: Ht 154.9 cm; Wt 73.6 kg
[~2021-07-28 13:38] MED LIST changes: -AZIT500T9 PO; -BENZ-16 PO; +CALC667T6 PO; -DULA1.5P SQ; -FOLI1TAB34 PO; +FURO20TA4 PO; -LACT1CAP26 PO; -LIDO700A47 TOP; -LIOT5TAB10 PO; -OMEP-50 PO; -ONDA4TAB12 SL; -PEG15DRO6 LEFTEYE; -SPIR50TA5 PO; -THYR90TA PO; -TOBR5DRO7 EACHEYE
--- NOTE | 2021-07-28 13:55 | NUR ---
Angel flores in [facility] - 07/28/21 at 1419 by ZULEMA Pt given water per pt request.
--- NOTE | 2021-07-28 17:22 | NUR ---
LAB CALLED PATIENT POSITIVE FOR COVID, INFORMED KIM GRANT AND PHIL HOFFMAN
[2021-07-28 19:17] LABS: APTT 28 SECONDS (22-32)
[2021-07-28 19:20] LABS: BASOPHILS % (AUTO) 0.6 % (0-1); EOSINOPHILS # (AUTO) 0.1 X10'3 (0-0.9); EOSINOPHILS % (AUTO) 1.7 % (0-6); HEMATOCRIT 38.6 % (35.0-45.0); HEMOGLOBIN 12.6 g/dl (12.0-16.0); LYMPHOCYTES # (AUTO) 1.4 X10'3 (1.1-4.8); LYMPHOCYTES % (AUTO) 39.5 % (21-51); MEAN CORPUSCULAR HEMOGLOBIN 29.4 PG (27.0-31.0); MEAN CORPUSCULAR HGB CONC 32.6 g/dL (33.0-36.5); MEAN CORPUSCULAR VOLUME 90.1 FL (78-98); MEAN PLATELET VOLUME 9.6 FL (7.4-10.4); MONOCYTES # (AUTO) 0.3 X10'3 (0-0.9); MONOCYTES % (AUTO) 9.3 % (2-12); NEUTROPHILS # (AUTO) 1.7 X10'3 (1.8-7.7); NEUTROPHILS % (AUTO) 48.9 % (42-75); PLATELET COUNT 102 X10'3 (140-440); RED BLOOD COUNT 4.28 X10'6 (4.20-5.60); RED CELL DISTRIBUTION WIDTH 14.5 % (11.5-14.5); WHITE BLOOD COUNT 3.5 X10'3 (4.5-11.0)
[2021-07-28 19:28] LABS: ALANINE AMINOTRANSFERASE 44 U/L (12-78); ALBUMIN 2.7 G/DL (3.4-5.0); ALBUMIN/GLOBULIN RATIO 0.6 (1.1-1.5); ANION GAP 6 (8-16); ASPARTATE AMINO TRANSFERASE 74 U/L (10-37); BILIRUBIN,TOTAL 0.5 MG/DL (0.1-1.0); BLOOD UREA NITROGEN 25 MG/DL (7-18); BUN/CREATININE RATIO 11.8 (6.6-38.0); CALCIUM 7.7 MG/DL (8.5-10.1); CHLORIDE 105 MMOL/L (99-107); CREATININE 2.11 MG/DL (0.40-0.90); GLUCOSE 80 MG/DL (70-104); MAGNESIUM 1.8 MG/DL (1.5-2.4); PHOSPHORUS 3.9 MG/DL (2.3-4.5); POTASSIUM 5.3 MMOL/L (3.5-5.1); SODIUM 141 MMOL/L (135-145); TOTAL PROTEIN 6.9 G/DL (6.4-8.2); eGFR 24 ML/MIN
[2021-07-28 21:06] VITALS: BP 132/63
--- NOTE | 2021-07-28 22:14 | NUR ---
SPOKE TO PT ABOUT DISCHARGE. PT UPSET OVER THE WAIT. EDUCATED PT ON THE WAIT AND SETTING UP DIALYSIS.
== END 2021-07-28 22:32 | disposition home or self-care (01) ==
LOC: ER 13:38
DX: U07.1 COVID-19 (principal); J90 Pleural effusion, not elsewhere classified; R05.9 Cough, unspecified; R07.89 Other chest pain; E78.00 Pure hypercholesterolemia, unspecified; I25.2 Old myocardial infarction; K21.9 Gastro-esophageal reflux disease without esophagitis; E11.42 Type 2 diabetes mellitus with diabetic polyneuropathy; G89.29 Other chronic pain; F32.A Depression, unspecified; Z87.01 Personal history of pneumonia (recurrent); Z86.14 Personal history of Methicillin resistant Staphylococcus aureus infection; Z90.49 Acquired absence of other specified parts of digestive tract; Z60.2 Problems related to living alone; Z56.0 Unemployment, unspecified; Z88.8 Allergy status to other drugs, medicaments and biological substances; Z79.4 Long term (current) use of insulin; Z79.899 Other long term (current) drug therapy
CPT/HCPCS: 36415; 71045; 80053; 83735; 83880; 84100; 84484; 85025; 85610; 85730; 87635; 93005; 99285; C9803

== ENCOUNTER 2021-09-25 06:04 | Day surgery (SDC) | payer MEDICARE, MEDICAID ==
[~2021-09-25] VITALS: Ht 154.9 cm; Wt 74.3 kg
[2021-09-25] VITALS (7 sets, daily range): BP systolic 126–143; BP diastolic 62–76
[2021-09-25] MEDS ORDERED: albumin 25% 100mL bottle x 1 IV PRN (06:30)
[2021-09-25] MEDS ORDERED: ALBU1POW2 INH (06:33)
[2021-09-25] MEDS ORDERED: DULA1.5P SQ (06:33)
[2021-09-25] MEDS ORDERED: SITA25TA3 PO (06:33)
[2021-09-25] MEDS ORDERED: LIDOcaine 1%/PF 5ML 10 MG/ML VIAL IJ ONE (07:10)
[2021-09-25] MEDS ORDERED: acetaminophen 325mg tablet PO PRN (08:55)
== END 2021-09-25 09:33 | disposition home or self-care (01) ==
LOC: SSTAY O 06:04
PROVIDERS: ATTEND Radiology Diagnostic Radiology
DX: J90 Pleural effusion, not elsewhere classified (principal); N18.6 End stage renal disease; Z99.2 Dependence on renal dialysis; E78.5 Hyperlipidemia, unspecified; K21.9 Gastro-esophageal reflux disease without esophagitis; G89.29 Other chronic pain; F32.A Depression, unspecified; Z90.49 Acquired absence of other specified parts of digestive tract; Z98.890 Other specified postprocedural states; Z96.651 Presence of right artificial knee joint; Z88.8 Allergy status to other drugs, medicaments and biological substances; Z91.09 Other allergy status, other than to drugs and biological substances; Z79.899 Other long term (current) drug therapy; Z79.4 Long term (current) use of insulin; Z82.3 Family history of stroke; Z82.49 Family history of ischemic heart disease and other diseases of the circulatory system
CPT/HCPCS: 32555; J3490

== ENCOUNTER 2021-10-08 08:05 | Day surgery (SDC) | payer MEDICARE, MEDICAID ==
[~2021-10-08] VITALS: Ht 154.9 cm; Wt 73.6 kg
[~2021-10-08 08:05] MED LIST changes: +ALBU1POW2 INH; -CALC667T6 PO; +DULA1.5P SQ; +SITA25TA3 PO
[2021-10-08 08:35] VITALS: BP 137/62
[2021-10-08 10:05] VITALS: BP 111/49
[2021-10-08 10:20] VITALS: BP 120/61
[2021-10-08 10:30] VITALS: BP 124/64
[2021-10-08 10:35] VITALS: BP 116/58
[2021-10-08 10:50] VITALS: BP 101/59
[2021-10-08 11:32] LABS: GLUCOSE,BODY FLUID 145 MG/DL; LDH,BODY FLUID 71 U/L
[2021-10-08 11:39] LABS: EOSINOPHILS,BODY FLUID 3 %; LYMPHOCYTES,BODY FLUID 58 %; MONOCYTES,BODY FLUID 38 %; NEUTROPHILS,BODY FLUID 1 %
[2021-10-08 11:40] LABS: BFAPPEAR HAZY; BFCOLOR YELLOW; BFVOLUME 50 ML
[2021-10-08 11:41] LABS: BF RBC COUNT 279 /CU MM; BF WBC COUNT 83 /CU MM (0-1000)
[2021-10-08 11:42] LABS: BF MESOTHELIAL CELLS FEW
== END 2021-10-08 11:00 | disposition home or self-care (01) ==
LOC: SSTAY O 08:05
PROVIDERS: ATTEND Radiology Diagnostic Radiology
DX: J90 Pleural effusion, not elsewhere classified (principal); E78.5 Hyperlipidemia, unspecified; F32.A Depression, unspecified; K74.60 Unspecified cirrhosis of liver; N18.6 End stage renal disease; Z90.49 Acquired absence of other specified parts of digestive tract; Z96.651 Presence of right artificial knee joint; Z98.890 Other specified postprocedural states; Z88.8 Allergy status to other drugs, medicaments and biological substances; Z91.040 Latex allergy status; Z91.09 Other allergy status, other than to drugs and biological substances; Z79.4 Long term (current) use of insulin; Z79.899 Other long term (current) drug therapy; Z82.49 Family history of ischemic heart disease and other diseases of the circulatory system
CPT/HCPCS: 32555; 36415; 82945; 83615; 84157; 87070; 89051

== ENCOUNTER 2021-12-17 06:08 | Day surgery (SDC) | payer MEDICARE, MEDICAID ==
[2021-12-17] VITALS (7 sets, daily range): BP systolic 131–162; BP diastolic 68–79
[~2021-12-17] VITALS: Ht 154.9 cm; Wt 73.6 kg
[2021-12-17] MEDS ORDERED: albumin 25% 100mL bottle x 1 IV PRN (06:45)
[2021-12-17] MEDS: LIDOcaine 1%/PF 5ML 10 MG/ML VIAL IJ ONE ×2 (10:04→10:45)
== END 2021-12-17 11:20 | disposition home or self-care (01) ==
LOC: SSTAY O 06:08
PROVIDERS: ATTEND Radiology Diagnostic Radiology
DX: R18.8 Other ascites (principal); K74.60 Unspecified cirrhosis of liver; N18.6 End stage renal disease; Z86.73 Personal history of transient ischemic attack (TIA), and cerebral infarction without residual deficits; Z82.49 Family history of ischemic heart disease and other diseases of the circulatory system; Z79.899 Other long term (current) drug therapy; Z88.8 Allergy status to other drugs, medicaments and biological substances; Z91.040 Latex allergy status; Z20.822 Contact with and (suspected) exposure to COVID-19; Z99.2 Dependence on renal dialysis; Z98.890 Other specified postprocedural states
CPT/HCPCS: 49083; J3490; Z7610; A6258; A6449

== ENCOUNTER 2022-02-11 06:23 | Day surgery (SDC) | payer MEDICARE, MEDICAID ==
[~2022-02-11] VITALS: Ht 154.9 cm; Wt 74.8 kg
[2022-02-11] MEDS ORDERED: LIDOcaine 1% 30ml preserv. free vial IJ STA (06:24)
[2022-02-11] MEDS ORDERED: albumin 25% 100mL bottle x 1 IV PRN (06:50)
[2022-02-11 06:54] VITALS: BP 118/61
[2022-02-11 08:33] VITALS: BP 123/64
[2022-02-11 08:46] VITALS: BP 126/76
[2022-02-11 09:01] VITALS: BP 117/59
[2022-02-11 09:16] VITALS: BP 108/54
[2022-02-11 09:28] VITALS: BP 121/57
== END 2022-02-11 09:50 | disposition home or self-care (01) ==
LOC: SSTAY O 06:23
PROVIDERS: ATTEND Radiology Vascular & Interventional Radiology
DX: R18.8 Other ascites (principal); E11.22 Type 2 diabetes mellitus with diabetic chronic kidney disease; N18.6 End stage renal disease; Z82.49 Family history of ischemic heart disease and other diseases of the circulatory system; Z82.3 Family history of stroke; K74.60 Unspecified cirrhosis of liver; E78.5 Hyperlipidemia, unspecified; K21.9 Gastro-esophageal reflux disease without esophagitis; F32.9 Major depressive disorder, single episode, unspecified; Z90.49 Acquired absence of other specified parts of digestive tract; Z88.8 Allergy status to other drugs, medicaments and biological substances; Z79.899 Other long term (current) drug therapy; Z98.890 Other specified postprocedural states; Z96.651 Presence of right artificial knee joint; Z91.09 Other allergy status, other than to drugs and biological substances; Z79.4 Long term (current) use of insulin
CPT/HCPCS: 49083; J3490; J7030; P9047; A6258

== ENCOUNTER 2022-03-05 07:02 | Day surgery (SDC) | payer MEDICARE, MEDICAID ==
[2022-03-05] VITALS (7 sets, daily range): BP systolic 125–138; BP diastolic 54–78
[~2022-03-05] VITALS: Ht 154.9 cm; Wt 77.2 kg
[2022-03-05] MEDS ORDERED: albumin 25% 100mL bottle x 1 IV PRN (07:25)
[2022-03-05] MEDS ORDERED: ONDA4TAB12 PO (08:16)
[2022-03-05] MEDS ORDERED: LIDOcaine 1%/PF 5ML 10 MG/ML VIAL IJ ONE (08:55)
== END 2022-03-05 11:00 | disposition home or self-care (01) ==
LOC: SSTAY O 07:02
PROVIDERS: ATTEND Radiology Vascular & Interventional Radiology
DX: R18.8 Other ascites (principal); K74.60 Unspecified cirrhosis of liver; E78.5 Hyperlipidemia, unspecified; K21.9 Gastro-esophageal reflux disease without esophagitis; E11.9 Type 2 diabetes mellitus without complications; F32.9 Major depressive disorder, single episode, unspecified; Z90.49 Acquired absence of other specified parts of digestive tract; Z98.890 Other specified postprocedural states; Z79.899 Other long term (current) drug therapy; Z96.651 Presence of right artificial knee joint
CPT/HCPCS: 49083; A6258

== ENCOUNTER 2022-03-19 16:26 | Emergency (ER) | payer MEDICARE, MEDICAID ==
[~2022-03-19] VITALS: Ht 154.9 cm; Wt 77.3 kg
[~2022-03-19 16:26] MED LIST changes: +ONDA4TAB12 PO
[2022-03-19 17:30] LABS: URINE HCG NEGATIVE (NEG)
[2022-03-19 17:31] LABS: CLARITY,URINE CLEAR (Clear); COLOR,URINE YELLOW (Yellow); GLUCOSE, URINE NEGATIVE (Neg); KETONES,URINE NEGATIVE (Neg); LEUKOCYTE ESTERASE ,URINE NEGATIVE (Neg); NITRITES, URINE NEGATIVE (Neg); OCCULT BLOOD,URINE NEGATIVE (Neg); PROTEIN,URINE 100 mg/dl (Neg)
[2022-03-19 17:35] LABS: UA COLLECTION TYPE CLN CATCH MIDSTREAM
[2022-03-19 17:36] LABS: BACTERIA,URINE NONE SEEN /HPF (Neg); RBC,URINE 0-2 /HPF (0-2); WBC,URINE 0-4 /HPF (0-4)
[2022-03-19 17:37] LABS: MUCUS STRANDS FEW /LPF (Neg); SQUAMOUS EPITHELIAL CELL,UR FEW /LPF (FEW)
[2022-03-19 17:51] LABS: EOSINOPHILS # (AUTO) 0.2 X10'3 (0-0.9)
[2022-03-19 17:53] LABS: BASOPHILS % (AUTO) 0.6 % (0-1); HEMATOCRIT 36.9 % (35.0-45.0); HEMOGLOBIN 12.4 g/dl (12.0-16.0); LYMPHOCYTES # (AUTO) 1.1 X10'3 (1.1-4.8); MEAN CORPUSCULAR HEMOGLOBIN 30.8 PG (27.0-31.0); MEAN CORPUSCULAR HGB CONC 33.6 g/dL (33.0-36.5); MEAN CORPUSCULAR VOLUME 91.8 FL (78-98); MEAN PLATELET VOLUME 8.9 FL (7.4-10.4); MONOCYTES # (AUTO) 0.4 X10'3 (0-0.9); MONOCYTES % (AUTO) 8.2 % (2-12); NEUTROPHILS # (AUTO) 3.6 X10'3 (1.8-7.7); NEUTROPHILS % (AUTO) 67.2 % (42-75); PLATELET COUNT 140 X10'3 (140-440); RED BLOOD COUNT 4.03 X10'6 (4.20-5.60); RED CELL DISTRIBUTION WIDTH 14.6 % (11.5-14.5); WHITE BLOOD COUNT 5.3 X10'3 (4.5-11.0)
[2022-03-19 18:15] LABS: ALANINE AMINOTRANSFERASE 44 U/L (12-78); ALBUMIN 2.9 G/DL (3.4-5.0); ALBUMIN/GLOBULIN RATIO 0.7 (1.1-1.5); ALKALINE PHOSPHATASE 421 IU/L (46-116); ANION GAP 7 (8-16); ASPARTATE AMINO TRANSFERASE 63 U/L (10-37); BILIRUBIN,TOTAL 0.3 MG/DL (0.1-1.0); BLOOD UREA NITROGEN 24 MG/DL (7-18); BUN/CREATININE RATIO 14.5 (6.6-38.0); CALCIUM 8.3 MG/DL (8.5-10.1); CHLORIDE 109 MMOL/L (99-107); CREATININE 1.65 MG/DL (0.40-0.90); GLUCOSE 68 MG/DL (70-104); LIPASE 141 U/L (73-393); POTASSIUM 4.5 MMOL/L (3.5-5.1); SODIUM 151 MMOL/L (135-145); TOTAL PROTEIN 6.8 G/DL (6.4-8.2); eGFR 31 ML/MIN
--- NOTE | 2022-03-19 19:30 | NUR ---
PT CO FEELING LOW BG SYMPTOMS, TESTED AND GAVE APPLE JUICE AND A SANDWICH FOR SBG 50, RECHECKED 149.
--- NOTE | 2022-03-19 21:33 | NUR ---
PT STILL IN WAITING ROOM CO PAIN 10/10 AND CRAMPING IN LEGS, ARMS AND FINGERS. RECHECKED BG, 75
--- NOTE | 2022-03-20 02:10 | NUR ---
DR CRUZ AT BEDSIDE EVALUATING PT LARGE ABD VENTRAL HERNIA/SLIDDING
[2022-03-20] MEDS ORDERED: dextrose 50%-water 50ml dispensing syringe IV ONE (02:20)
[2022-03-20] MEDS ORDERED: ondansetron/PF 4mg/2ml inj IM ONE (04:20)
[2022-03-20] MEDS ORDERED: morphine 2 MG/ML inj. syringe IV ONE (04:20)
[2022-03-20] MEDS ORDERED: ondansetron/PF 4mg/2ml inj IV ONE (04:35)
[2022-03-20 07:07] VITALS: BP 139/62
== END 2022-03-20 07:11 | disposition home or self-care (01) ==
LOC: ER 16:27
DX: R18.8 Other ascites (principal); E11.22 Type 2 diabetes mellitus with diabetic chronic kidney disease; N18.6 End stage renal disease; E78.00 Pure hypercholesterolemia, unspecified; K21.9 Gastro-esophageal reflux disease without esophagitis; G89.29 Other chronic pain; M54.50 Low back pain, unspecified; Z56.0 Unemployment, unspecified; Z88.6 Allergy status to analgesic agent; Z88.1 Allergy status to other antibiotic agents; Z91.040 Latex allergy status
CPT/HCPCS: 36415; 74176; 80053; 81001; 81025; 82948; 83690; 85025; 96374; 96375; 99285; J2270; J2405; J3490; L0220

== ENCOUNTER 2022-03-25 06:49 | Day surgery (SDC) | payer MEDICARE, MEDICAID ==
[~2022-03-25] VITALS: Ht 154.9 cm; Wt 83.0 kg
[2022-03-25 07:20] VITALS: BP 136/89
[2022-03-25] MEDS ORDERED: albumin 25% 100mL bottle x 1 IV PRN (07:25)
[2022-03-25] MEDS ORDERED: LIDOcaine 1% 30ml preserv. free vial SQ STA (07:44)
[2022-03-25 09:10] VITALS: BP 140/72
[2022-03-25 09:25] VITALS: BP 129/62
[2022-03-25 09:40] VITALS: BP 122/51
[2022-03-25 09:55] VITALS: BP 119/57
[2022-03-25 10:10] VITALS: BP 142/70
== END 2022-03-25 10:15 | disposition home or self-care (01) ==
LOC: SSTAY O 06:49
PROVIDERS: ATTEND Radiology Vascular & Interventional Radiology
DX: R18.8 Other ascites (principal); K74.60 Unspecified cirrhosis of liver; E78.5 Hyperlipidemia, unspecified; K21.9 Gastro-esophageal reflux disease without esophagitis; F32.9 Major depressive disorder, single episode, unspecified; E11.22 Type 2 diabetes mellitus with diabetic chronic kidney disease; N18.6 End stage renal disease; Z95.0 Presence of cardiac pacemaker; Z96.651 Presence of right artificial knee joint; Z82.49 Family history of ischemic heart disease and other diseases of the circulatory system; Z86.73 Personal history of transient ischemic attack (TIA), and cerebral infarction without residual deficits; Z79.899 Other long term (current) drug therapy; Z91.040 Latex allergy status; Z98.890 Other specified postprocedural states; Z90.49 Acquired absence of other specified parts of digestive tract
CPT/HCPCS: 49083; C1729; P9047; A6258; J3490

== ENCOUNTER 2022-04-08 06:45 | Day surgery (SDC) | payer MEDICARE, MEDICAID ==
[~2022-04-08] VITALS: Ht 154.9 cm; Wt 82.1 kg
[2022-04-08] VITALS (9 sets, daily range): BP systolic 102–126; BP diastolic 55–72
[2022-04-08] MEDS ORDERED: LIDOcaine 1% 30ml preserv. free vial SQ STA (07:39)
[2022-04-08] MEDS ORDERED: CLIN300C54 PO (07:42)
[2022-04-08] MEDS: albumin 25% 100mL bottle x 1 IV PRN ×2 (08:26→09:23)
== END 2022-04-08 10:30 | disposition home or self-care (01) ==
LOC: SSTAY O 06:45
PROVIDERS: ATTEND Radiology Vascular & Interventional Radiology
DX: R18.8 Other ascites (principal); K74.60 Unspecified cirrhosis of liver; K21.9 Gastro-esophageal reflux disease without esophagitis; E11.9 Type 2 diabetes mellitus without complications; F32.9 Major depressive disorder, single episode, unspecified; E78.5 Hyperlipidemia, unspecified; Z90.49 Acquired absence of other specified parts of digestive tract; Z79.899 Other long term (current) drug therapy; Z98.890 Other specified postprocedural states; Z95.0 Presence of cardiac pacemaker; Z96.651 Presence of right artificial knee joint
CPT/HCPCS: 49083; J3490; P9047; A6258

== ENCOUNTER 2022-04-22 08:06 | Day surgery (SDC) | payer MEDICARE, MEDICAID ==
[~2022-04-22] VITALS: Ht 154.9 cm; Wt 82.0 kg
[~2022-04-22 08:06] MED LIST changes: +CLIN300C54 PO
[2022-04-22] MEDS ORDERED: albumin 25% 100mL bottle x 1 IV PRN (08:30)
[2022-04-22] MEDS ORDERED: LIDOcaine 1% 30ml preserv. free vial IJ STA (08:33)
[2022-04-22 08:47] VITALS: BP 132/61
[2022-04-22 09:35] VITALS: BP 110/50
[2022-04-22 09:50] VITALS: BP 133/62
[2022-04-22 10:06] VITALS: BP 144/63
[2022-04-22 10:20] VITALS: BP 139/69
== END 2022-04-22 11:00 | disposition home or self-care (01) ==
LOC: SSTAY O 08:06
PROVIDERS: ATTEND Radiology Vascular & Interventional Radiology
DX: R18.8 Other ascites (principal); K74.60 Unspecified cirrhosis of liver; E78.5 Hyperlipidemia, unspecified; K21.9 Gastro-esophageal reflux disease without esophagitis; E11.22 Type 2 diabetes mellitus with diabetic chronic kidney disease; N18.6 End stage renal disease; I12.0 Hypertensive chronic kidney disease with stage 5 chronic kidney disease or end stage renal disease; F32.9 Major depressive disorder, single episode, unspecified; Z90.49 Acquired absence of other specified parts of digestive tract; Z96.651 Presence of right artificial knee joint; Z79.899 Other long term (current) drug therapy; Z98.890 Other specified postprocedural states
CPT/HCPCS: 49083; A6258

== ENCOUNTER 2022-05-13 07:37 | Day surgery (SDC) | payer MEDICARE, MEDICAID ==
[2022-05-13] VITALS (17 sets, daily range): BP systolic 158–193; BP diastolic 68–107
[~2022-05-13] VITALS: Ht 154.9 cm; Wt 79.8 kg
[~2022-05-13 07:37] MED LIST changes: -CLIN300C54 PO
[2022-05-13] MEDS ORDERED: albumin 25% 100mL bottle x 1 IV PRN (08:10)
[2022-05-13] MEDS ORDERED: LIDOcaine 1% 30ml preserv. free vial IJ STA (08:11)
[2022-05-13] MEDS ORDERED: morphine 2 MG/ML inj. syringe IV STA (10:56)
[2022-05-13] MEDS ORDERED: morphine 2 MG/ML inj. syringe IV PRN (11:00)
[2022-05-13] MEDS ORDERED: morphine 4 MG/ML inj SYRINge ONE (11:05)
== END 2022-05-13 14:15 | disposition home or self-care (01) ==
LOC: SSTAY O 07:37
PROVIDERS: ATTEND Radiology Vascular & Interventional Radiology
DX: R18.8 Other ascites (principal); K74.60 Unspecified cirrhosis of liver; E78.5 Hyperlipidemia, unspecified; K21.9 Gastro-esophageal reflux disease without esophagitis; E11.9 Type 2 diabetes mellitus without complications; F32.9 Major depressive disorder, single episode, unspecified; Z90.49 Acquired absence of other specified parts of digestive tract; Z79.899 Other long term (current) drug therapy; Z91.040 Latex allergy status; Z98.890 Other specified postprocedural states; Z79.4 Long term (current) use of insulin; Z82.49 Family history of ischemic heart disease and other diseases of the circulatory system; Z86.73 Personal history of transient ischemic attack (TIA), and cerebral infarction without residual deficits
CPT/HCPCS: 49083; J2270; J3490; P9047; A6258; A6449

== ENCOUNTER 2022-06-17 06:53 | Day surgery (SDC) | payer MEDICARE, MEDICAID ==
[~2022-06-17] VITALS: Ht 154.9 cm; Wt 79.5 kg
[~2022-06-17 06:53] MED LIST changes: -ALBU1POW2 INH; +OSEL30CA PO
[2022-06-17] MEDS ORDERED: LIDOcaine 1% 30ml preserv. free vial SQ STA (07:07)
[2022-06-17 07:10] VITALS: BP 144/90
[2022-06-17] MEDS ORDERED: albumin 25% 100mL bottle x 1 IV PRN (07:10)
[2022-06-17 08:25] VITALS: BP 135/107
[2022-06-17 08:45] VITALS: BP 145/77
[2022-06-17 09:00] VITALS: BP 136/64
[2022-06-17 09:15] VITALS: BP 137/70
== END 2022-06-17 09:30 | disposition home or self-care (01) ==
LOC: SSTAY O 06:53
PROVIDERS: ATTEND Radiology Vascular & Interventional Radiology
DX: R18.8 Other ascites (principal); K74.60 Unspecified cirrhosis of liver; E78.5 Hyperlipidemia, unspecified; K21.9 Gastro-esophageal reflux disease without esophagitis; E11.9 Type 2 diabetes mellitus without complications; G89.29 Other chronic pain; F32.9 Major depressive disorder, single episode, unspecified; Z79.899 Other long term (current) drug therapy; Z91.040 Latex allergy status; Z88.8 Allergy status to other drugs, medicaments and biological substances; Z98.890 Other specified postprocedural states; Z90.49 Acquired absence of other specified parts of digestive tract; Z96.651 Presence of right artificial knee joint; Z86.73 Personal history of transient ischemic attack (TIA), and cerebral infarction without residual deficits
CPT/HCPCS: 49083; J3490; P9047; A6258

== ENCOUNTER 2022-07-05 06:04 | Day surgery (SDC) | payer MEDICARE, MEDICAID ==
[2022-07-05] VITALS (7 sets, daily range): BP systolic 112–140; BP diastolic 57–79
[~2022-07-05] VITALS: Ht 154.9 cm; Wt 84.4 kg
[~2022-07-05 06:04] MED LIST changes: -OSEL30CA PO
[2022-07-05] MEDS ORDERED: LIDOcaine 1% 30ml preserv. free vial SQ STA (06:25)
[2022-07-05] MEDS ORDERED: albumin 25% 100mL bottle x 1 IV PRN (06:30)
== END 2022-07-05 10:10 | disposition home or self-care (01) ==
LOC: SSTAY O 06:04
PROVIDERS: ATTEND Radiology Diagnostic Radiology
DX: R18.8 Other ascites (principal); R14.0 Abdominal distension (gaseous); E78.5 Hyperlipidemia, unspecified; K21.9 Gastro-esophageal reflux disease without esophagitis; G89.29 Other chronic pain; F32.9 Major depressive disorder, single episode, unspecified; E11.22 Type 2 diabetes mellitus with diabetic chronic kidney disease; N18.6 End stage renal disease; Z99.2 Dependence on renal dialysis; Z79.4 Long term (current) use of insulin; Z79.899 Other long term (current) drug therapy; Z88.8 Allergy status to other drugs, medicaments and biological substances; Z91.09 Other allergy status, other than to drugs and biological substances; Z90.49 Acquired absence of other specified parts of digestive tract; Z96.651 Presence of right artificial knee joint; Z98.890 Other specified postprocedural states
CPT/HCPCS: 49083; P9047

== ENCOUNTER 2022-07-22 06:15 | Day surgery (SDC) | payer MEDICARE, MEDICAID ==
[2022-07-22] VITALS (9 sets, daily range): BP systolic 131–160; BP diastolic 62–86
[~2022-07-22] VITALS: Ht 154.9 cm; Wt 85.0 kg
[2022-07-22] MEDS ORDERED: albumin 25% 100mL bottle x 1 IV PRN (06:45)
[2022-07-22] MEDS ORDERED: LIDOcaine 1% 30ml preserv. free vial IJ STA (08:10)
== END 2022-07-22 10:30 | disposition home or self-care (01) ==
LOC: SSTAY O 06:15
PROVIDERS: ATTEND Radiology Vascular & Interventional Radiology
DX: R18.8 Other ascites (principal); K74.60 Unspecified cirrhosis of liver; E78.5 Hyperlipidemia, unspecified; K21.9 Gastro-esophageal reflux disease without esophagitis; E11.22 Type 2 diabetes mellitus with diabetic chronic kidney disease; N18.6 End stage renal disease; F32.A Depression, unspecified; I25.2 Old myocardial infarction; F10.10 Alcohol abuse, uncomplicated; Z90.49 Acquired absence of other specified parts of digestive tract; Z96.651 Presence of right artificial knee joint; Z98.890 Other specified postprocedural states; Z88.1 Allergy status to other antibiotic agents; Z88.6 Allergy status to analgesic agent; Z88.8 Allergy status to other drugs, medicaments and biological substances; Z91.040 Latex allergy status; Z91.048 Other nonmedicinal substance allergy status; Z79.4 Long term (current) use of insulin; Z79.899 Other long term (current) drug therapy
CPT/HCPCS: 49083; P9047; A4615; A6258

== ENCOUNTER 2022-08-05 06:48 | Day surgery (SDC) | payer MEDICARE, MEDICAID ==
[2022-08-05] VITALS (10 sets, daily range): BP systolic 100–134; BP diastolic 45–78
[~2022-08-05] VITALS: Ht 154.9 cm; Wt 83.7 kg
[~2022-08-05 06:48] MED LIST changes: +LIDOcaine 1% 30ml preserv. free vial IJ STA
[2022-08-05] MEDS: albumin 25% 100mL bottle x 1 IV PRN ×2 (08:42→09:01)
== END 2022-08-05 10:35 | disposition home or self-care (01) ==
LOC: SSTAY O 06:48
PROVIDERS: ATTEND Radiology Diagnostic Radiology
DX: R18.8 Other ascites (principal); R14.0 Abdominal distension (gaseous); K74.60 Unspecified cirrhosis of liver; K21.9 Gastro-esophageal reflux disease without esophagitis; E11.22 Type 2 diabetes mellitus with diabetic chronic kidney disease; N18.6 End stage renal disease; E78.5 Hyperlipidemia, unspecified; F32.A Depression, unspecified; G89.29 Other chronic pain; Z99.2 Dependence on renal dialysis; Z90.49 Acquired absence of other specified parts of digestive tract; Z98.890 Other specified postprocedural states; Z96.651 Presence of right artificial knee joint; Z88.8 Allergy status to other drugs, medicaments and biological substances; Z91.040 Latex allergy status; Z88.1 Allergy status to other antibiotic agents; Z91.09 Other allergy status, other than to drugs and biological substances; Z79.4 Long term (current) use of insulin; Z79.899 Other long term (current) drug therapy; Z82.3 Family history of stroke; Z82.49 Family history of ischemic heart disease and other diseases of the circulatory system
CPT/HCPCS: 49083; J3490; P9047; A6258

== ENCOUNTER 2022-08-16 11:49 | Emergency (ER) | payer MEDICARE, MEDICAID ==
[~2022-08-16] VITALS: Ht 154.9 cm; Wt 70.0 kg
[~2022-08-16 11:49] MED LIST changes: -LIDOcaine 1% 30ml preserv. free vial IJ STA
[2022-08-16 11:54] VITALS: BP 91/44
== END 2022-08-16 12:06 | disposition home or self-care (01) ==
LOC: ER 11:50
DX: E11.22 Type 2 diabetes mellitus with diabetic chronic kidney disease (principal); N18.6 End stage renal disease; Z00.00 Encounter for general adult medical examination without abnormal findings; E78.00 Pure hypercholesterolemia, unspecified; K21.9 Gastro-esophageal reflux disease without esophagitis; G89.29 Other chronic pain; M54.50 Low back pain, unspecified; Z88.1 Allergy status to other antibiotic agents; Z88.6 Allergy status to analgesic agent; Z91.040 Latex allergy status; Z90.49 Acquired absence of other specified parts of digestive tract; Z56.0 Unemployment, unspecified
CPT/HCPCS: 99283

== ENCOUNTER 2022-08-24 07:39 | Day surgery (SDC) | payer MEDICARE, MEDICAID ==
[~2022-08-24] VITALS: Ht 154.9 cm; Wt 85.4 kg
[2022-08-24] MEDS ORDERED: LIDOcaine 1% 30ml preserv. free vial SQ STA (07:57)
[2022-08-24 08:00] VITALS: BP 106/62
[2022-08-24 08:10] VITALS: BP 110/61
[2022-08-24 08:25] VITALS: BP 122/61
[2022-08-24 08:40] VITALS: BP 120/64
[2022-08-24 08:55] VITALS: BP 122/66
[2022-08-24] MEDS: albumin 25% 100mL bottle x 1 IV PRN ×2 (09:21→09:56)
[2022-08-24 09:25] VITALS: BP 130/60
== END 2022-08-24 10:00 | disposition home or self-care (01) ==
LOC: SSTAY O 07:39
PROVIDERS: ATTEND Radiology Diagnostic Radiology
DX: R18.8 Other ascites (principal); R14.0 Abdominal distension (gaseous); K74.60 Unspecified cirrhosis of liver; E78.5 Hyperlipidemia, unspecified; E11.22 Type 2 diabetes mellitus with diabetic chronic kidney disease; N18.6 End stage renal disease; G89.29 Other chronic pain; K21.9 Gastro-esophageal reflux disease without esophagitis; F32.A Depression, unspecified; Z99.2 Dependence on renal dialysis; Z90.49 Acquired absence of other specified parts of digestive tract; Z98.890 Other specified postprocedural states; Z96.651 Presence of right artificial knee joint; Z91.040 Latex allergy status; Z88.1 Allergy status to other antibiotic agents; Z88.8 Allergy status to other drugs, medicaments and biological substances; Z79.899 Other long term (current) drug therapy
CPT/HCPCS: 49083; A6258; J3490; P9047

== ENCOUNTER 2022-09-13 06:10 | Day surgery (SDC) | payer MEDICARE, MEDICAID ==
[~2022-09-13] VITALS: Ht 154.9 cm; Wt 85.3 kg
[2022-09-13] VITALS (7 sets, daily range): BP systolic 116–136; BP diastolic 59–72
[2022-09-13] MEDS ORDERED: LIDOcaine 1% 30ml preserv. free vial SQ STA (06:23)
[2022-09-13] MEDS ORDERED: LIDOcaine 1% 30ml preserv. free vial SQ PRN (06:30)
[2022-09-13] MEDS: albumin 25% 100mL bottle x 1 IV PRN ×2 (08:45→08:46)
== END 2022-09-13 10:27 | disposition home or self-care (01) ==
LOC: SSTAY O 06:10
PROVIDERS: ATTEND Radiology Diagnostic Radiology
DX: R18.8 Other ascites (principal); K74.60 Unspecified cirrhosis of liver; E78.5 Hyperlipidemia, unspecified; K21.9 Gastro-esophageal reflux disease without esophagitis; E11.9 Type 2 diabetes mellitus without complications; F32.A Depression, unspecified; Z90.49 Acquired absence of other specified parts of digestive tract; Z98.890 Other specified postprocedural states; Z88.8 Allergy status to other drugs, medicaments and biological substances; Z96.651 Presence of right artificial knee joint; Z82.49 Family history of ischemic heart disease and other diseases of the circulatory system; Z86.73 Personal history of transient ischemic attack (TIA), and cerebral infarction without residual deficits; Z79.4 Long term (current) use of insulin
CPT/HCPCS: 49083; P9047; A6258

== ENCOUNTER 2022-09-30 05:51 | Day surgery (SDC) | payer MEDICARE, MEDICAID ==
[~2022-09-30] VITALS: Ht 154.9 cm; Wt 81.6 kg
[2022-09-30] VITALS (7 sets, daily range): BP systolic 120–146; BP diastolic 60–76
[2022-09-30] MEDS ORDERED: normal saline 1000ml 1,000 ML IV PRN (06:25)
[2022-09-30] MEDS ORDERED: LIDOcaine 1% 30ml preserv. free vial SQ ONE (08:00)
[2022-09-30] MEDS: albumin 25% 100mL bottle x 1 IV PRN ×2 (08:16→08:58)
== END 2022-09-30 09:55 | disposition home or self-care (01) ==
LOC: SSTAY O 05:51
PROVIDERS: ATTEND Radiology Vascular & Interventional Radiology
DX: R18.8 Other ascites (principal); R14.0 Abdominal distension (gaseous); E78.5 Hyperlipidemia, unspecified; K21.9 Gastro-esophageal reflux disease without esophagitis; F32.A Depression, unspecified; G89.29 Other chronic pain; K74.60 Unspecified cirrhosis of liver; E11.22 Type 2 diabetes mellitus with diabetic chronic kidney disease; N18.6 End stage renal disease; Z99.2 Dependence on renal dialysis; Z98.890 Other specified postprocedural states; Z90.49 Acquired absence of other specified parts of digestive tract; Z96.651 Presence of right artificial knee joint; Z79.899 Other long term (current) drug therapy; Z91.040 Latex allergy status; Z88.1 Allergy status to other antibiotic agents; Z88.8 Allergy status to other drugs, medicaments and biological substances
CPT/HCPCS: 49083; 82948; J3490; P9047; A6258; A6449

== ENCOUNTER 2022-10-18 06:53 | Day surgery (SDC) | payer MEDICARE, MEDICAID ==
[~2022-10-18] VITALS: Ht 154.9 cm; Wt 81.6 kg
[2022-10-18] VITALS (7 sets, daily range): BP systolic 116–128; BP diastolic 53–67
[2022-10-18] MEDS ORDERED: LIDOcaine 1%/PF 5ML 10 MG/ML VIAL SQ ONE (07:15)
[2022-10-18] MEDS: albumin 25% 100mL bottle x 1 IV PRN ×2 (09:03→09:52)
== END 2022-10-18 11:00 | disposition home or self-care (01) ==
LOC: SSTAY O 06:53
PROVIDERS: ATTEND Radiology Vascular & Interventional Radiology
DX: R18.8 Other ascites (principal); K74.60 Unspecified cirrhosis of liver; G89.29 Other chronic pain; E11.22 Type 2 diabetes mellitus with diabetic chronic kidney disease; N18.6 End stage renal disease; E78.5 Hyperlipidemia, unspecified; K21.9 Gastro-esophageal reflux disease without esophagitis; F32.A Depression, unspecified; Z99.2 Dependence on renal dialysis; Z98.890 Other specified postprocedural states; Z90.49 Acquired absence of other specified parts of digestive tract; Z96.651 Presence of right artificial knee joint; Z88.1 Allergy status to other antibiotic agents; Z88.8 Allergy status to other drugs, medicaments and biological substances; Z91.040 Latex allergy status; Z91.09 Other allergy status, other than to drugs and biological substances; Z79.4 Long term (current) use of insulin; Z79.899 Other long term (current) drug therapy; Z82.3 Family history of stroke; Z82.49 Family history of ischemic heart disease and other diseases of the circulatory system
CPT/HCPCS: 49083; J3490; P9047; A6258; A6449

== ENCOUNTER 2022-11-09 07:05 | Day surgery (SDC) | payer MEDICARE, MEDICAID ==
[~2022-11-09] VITALS: Ht 154.9 cm; Wt 83.6 kg
[2022-11-09] VITALS (8 sets, daily range): BP systolic 106–133; BP diastolic 56–71
[~2022-11-09 07:05] MED LIST changes: +FENT1PAT12 TOP
[2022-11-09] MEDS ORDERED: LIDOcaine 1%/PF 5ML 10 MG/ML VIAL SQ ONE (07:40)
[2022-11-09] MEDS: albumin 25% 100mL bottle x 1 IV PRN ×2 (08:17→09:25)
== END 2022-11-09 10:10 | disposition home or self-care (01) ==
LOC: SSTAY O 07:05
PROVIDERS: ATTEND Radiology Vascular & Interventional Radiology
DX: R18.8 Other ascites (principal); R14.0 Abdominal distension (gaseous); K74.60 Unspecified cirrhosis of liver; E11.22 Type 2 diabetes mellitus with diabetic chronic kidney disease; N18.6 End stage renal disease; E78.5 Hyperlipidemia, unspecified; K21.9 Gastro-esophageal reflux disease without esophagitis; F32.A Depression, unspecified; G89.29 Other chronic pain; Z90.49 Acquired absence of other specified parts of digestive tract; Z96.651 Presence of right artificial knee joint; Z99.2 Dependence on renal dialysis; Z98.890 Other specified postprocedural states; Z88.8 Allergy status to other drugs, medicaments and biological substances; Z88.1 Allergy status to other antibiotic agents; Z91.09 Other allergy status, other than to drugs and biological substances; Z91.040 Latex allergy status; Z79.4 Long term (current) use of insulin; Z79.899 Other long term (current) drug therapy; Z82.3 Family history of stroke; Z82.49 Family history of ischemic heart disease and other diseases of the circulatory system
CPT/HCPCS: 49083; 82948; J3490; P9047; A6258; A6449

== ENCOUNTER 2022-12-12 13:20 | Emergency (ER) | payer MEDICARE, MEDICAID ==
[~2022-12-12] VITALS: Ht 154.9 cm; Wt 78.6 kg
[~2022-12-12 13:20] MED LIST changes: +LEVO100T PO; +ROPI2TAB53 PO; -ROPI2TAB7 PO
[2022-12-12] MEDS ORDERED: LIDOcaine 1% 30ml preserv. free vial IJ ONE (13:55)
[2022-12-12 14:24] LABS: BASOPHILS % (AUTO) 0.6 % (0-1); EOSINOPHILS # (AUTO) 0.2 X10'3 (0-0.9); EOSINOPHILS % (AUTO) 6.1 % (0-6); HEMATOCRIT 38.4 % (35.0-45.0); HEMOGLOBIN 12.5 g/dl (12.0-16.0); LYMPHOCYTES % (AUTO) 25.9 % (21-51); MEAN CORPUSCULAR HEMOGLOBIN 29.5 PG (27.0-31.0); MEAN CORPUSCULAR HGB CONC 32.5 g/dL (33.0-36.5); MEAN CORPUSCULAR VOLUME 90.9 FL (78-98); MEAN PLATELET VOLUME 8.8 FL (7.4-10.4); MONOCYTES # (AUTO) 0.4 X10'3 (0-0.9); MONOCYTES % (AUTO) 10.3 % (2-12); NEUTROPHILS # (AUTO) 2.3 X10'3 (1.8-7.7); NEUTROPHILS % (AUTO) 57.1 % (42-75); PLATELET COUNT 151 X10'3 (140-440); RED BLOOD COUNT 4.22 X10'6 (4.20-5.60); RED CELL DISTRIBUTION WIDTH 15.9 % (11.5-14.5)
[2022-12-12 14:28] LABS: ALANINE AMINOTRANSFERASE 24 U/L (12-78); ALBUMIN 2.3 G/DL (3.4-5.0); ALBUMIN/GLOBULIN RATIO 0.6 (1.1-1.5); ALKALINE PHOSPHATASE 286 IU/L (46-116); ANION GAP 5 (8-16); ASPARTATE AMINO TRANSFERASE 44 U/L (10-37); BILIRUBIN,TOTAL 0.5 MG/DL (0.1-1.0); BLOOD UREA NITROGEN 42 MG/DL (7-18); BUN/CREATININE RATIO 11.1 (10.0-20.0); CALCIUM 7.8 MG/DL (8.5-10.1); CHLORIDE 103 MMOL/L (99-107); CREATININE 3.77 MG/DL (0.40-0.90); GLUCOSE 124 MG/DL (70-104); POTASSIUM 4.5 MMOL/L (3.5-5.1); SODIUM 141 MMOL/L (135-145); TOTAL CARBON DIOXIDE 33.2 MMOL/L (24-32); TOTAL PROTEIN 6.1 G/DL (6.4-8.2); eGFR 12 ML/MIN
[2022-12-12] MEDS ORDERED: LORazepam 1 MG tablet PO ONE (15:45)
--- NOTE | 2022-12-12 16:50 | NUR ---
Bedisde thoracentesis performed per [employer]. Pt resting in bed afterwards, VSS.
[2022-12-12 17:27] VITALS: BP 125/67
== END 2022-12-12 18:26 | disposition home or self-care (01) ==
LOC: ER 13:21
DX: R06.02 Shortness of breath (principal); I11.0 Hypertensive heart disease with heart failure; K21.9 Gastro-esophageal reflux disease without esophagitis; E03.9 Hypothyroidism, unspecified; G89.29 Other chronic pain; M54.9 Dorsalgia, unspecified; F32.A Depression, unspecified; Z88.8 Allergy status to other drugs, medicaments and biological substances; Z88.6 Allergy status to analgesic agent; Z91.040 Latex allergy status; Z88.1 Allergy status to other antibiotic agents
CPT/HCPCS: 32554; 36415; 71045; 80053; 83735; 83880; 84484; 85025; 93005; 99285

== ENCOUNTER 2022-12-20 07:04 | Day surgery (SDC) | payer MEDICARE, MEDICAID ==
[2022-12-20] VITALS (12 sets, daily range): BP systolic 92–152; BP diastolic 46–64
[~2022-12-20] VITALS: Ht 154.9 cm; Wt 83.0 kg
[2022-12-20] MEDS: albumin 25% 100mL bottle x 1 IV PRN ×3 (09:00→10:26)
== END 2022-12-20 11:00 | disposition home or self-care (01) ==
LOC: SSTAY O 07:04
PROVIDERS: ATTEND Radiology Diagnostic Radiology
DX: R18.8 Other ascites (principal); R14.0 Abdominal distension (gaseous); K74.60 Unspecified cirrhosis of liver; E78.5 Hyperlipidemia, unspecified; K21.9 Gastro-esophageal reflux disease without esophagitis; E11.22 Type 2 diabetes mellitus with diabetic chronic kidney disease; N18.6 End stage renal disease; G89.29 Other chronic pain; K76.6 Portal hypertension; F32.A Depression, unspecified; Z90.49 Acquired absence of other specified parts of digestive tract; Z96.651 Presence of right artificial knee joint; Z99.2 Dependence on renal dialysis; Z98.890 Other specified postprocedural states; Z91.041 Radiographic dye allergy status; Z88.8 Allergy status to other drugs, medicaments and biological substances; Z88.1 Allergy status to other antibiotic agents; Z91.040 Latex allergy status; Z79.899 Other long term (current) drug therapy; Z79.4 Long term (current) use of insulin; Z82.3 Family history of stroke; Z82.49 Family history of ischemic heart disease and other diseases of the circulatory system
CPT/HCPCS: 49083; C1729; J3490; P9047; A6258; A6449

== ENCOUNTER 2022-12-31 08:11 | Day surgery (SDC) | payer MEDICARE, MEDICAID ==
[2022-12-31] VITALS (8 sets, daily range): BP systolic 116–142; BP diastolic 53–70; PULSE 69–85; RESP 15–17; TEMP 97.8; O2SAT 94–100
[~2022-12-31] VITALS: Ht 154.9 cm; Wt 75.1 kg
[2022-12-31] MEDS ORDERED: ALBU18HF2 INH (08:40)
[2022-12-31] MEDS: albumin 25% 100mL bottle x 1 IV PRN ×2 (09:23→10:05)
== END 2022-12-31 11:30 | disposition home or self-care (01) ==
LOC: SSTAY O 08:11
PROVIDERS: ATTEND Radiology Diagnostic Radiology
DX: R18.8 Other ascites (principal); R14.0 Abdominal distension (gaseous); K76.6 Portal hypertension; K74.60 Unspecified cirrhosis of liver; E11.22 Type 2 diabetes mellitus with diabetic chronic kidney disease; N18.6 End stage renal disease; K21.9 Gastro-esophageal reflux disease without esophagitis; G89.29 Other chronic pain; F32.A Depression, unspecified; Z99.2 Dependence on renal dialysis; Z98.890 Other specified postprocedural states; Z90.49 Acquired absence of other specified parts of digestive tract; Z96.651 Presence of right artificial knee joint; Z88.8 Allergy status to other drugs, medicaments and biological substances; Z88.1 Allergy status to other antibiotic agents; Z91.040 Latex allergy status; Z79.899 Other long term (current) drug therapy
CPT/HCPCS: 49083; C1729; J3490; P9047; A6258; A6449

== ENCOUNTER 2023-01-14 06:43 | Day surgery (SDC) | payer MEDICARE, MEDICAID ==
[~2023-01-14] VITALS: Ht 154.9 cm; Wt 77.1 kg
[2023-01-14] VITALS (7 sets, daily range): BP systolic 96–115; BP diastolic 46–56; PULSE 68–81; RESP 12–15; TEMP 97.7; O2SAT 94–97
[~2023-01-14 06:43] MED LIST changes: +ALBU18HF2 INH
[2023-01-14] MEDS: albumin 25% 100mL bottle x 1 IV PRN ×3 (08:35→10:23)
== END 2023-01-14 10:30 | disposition home or self-care (01) ==
LOC: SSTAY O 06:43
PROVIDERS: ATTEND Radiology Vascular & Interventional Radiology
DX: R18.8 Other ascites (principal); R14.0 Abdominal distension (gaseous); K74.69 Other cirrhosis of liver; K76.6 Portal hypertension; E11.22 Type 2 diabetes mellitus with diabetic chronic kidney disease; N18.6 End stage renal disease; E78.5 Hyperlipidemia, unspecified; K21.9 Gastro-esophageal reflux disease without esophagitis; G89.29 Other chronic pain; F32.A Depression, unspecified; Z99.2 Dependence on renal dialysis; Z98.890 Other specified postprocedural states; Z90.49 Acquired absence of other specified parts of digestive tract; Z96.651 Presence of right artificial knee joint; Z88.8 Allergy status to other drugs, medicaments and biological substances; Z88.1 Allergy status to other antibiotic agents; Z91.040 Latex allergy status; Z91.048 Other nonmedicinal substance allergy status; Z79.4 Long term (current) use of insulin; Z79.899 Other long term (current) drug therapy; Z82.3 Family history of stroke; Z82.49 Family history of ischemic heart disease and other diseases of the circulatory system
CPT/HCPCS: 49083; C1729; J3490; P9047; A6258; A6449

== ENCOUNTER 2023-01-20 12:18 | Emergency (ER) | payer MEDICARE, MEDICAID ==
[~2023-01-20] VITALS: Ht 154.9 cm; Wt 74.5 kg
[~2023-01-20 12:18] MED LIST changes: -SITA25TA3 PO
[2023-01-20 13:14] VITALS: TEMP 98.3
[2023-01-20 14:59] LABS: BASOPHILS % (AUTO) 0.6 % (0-1); EOSINOPHILS # (AUTO) 0.1 X10'3 (0-0.9); EOSINOPHILS % (AUTO) 1.2 % (0-6); HEMATOCRIT 44.7 % (35.0-45.0); HEMOGLOBIN 14.5 g/dl (12.0-16.0); LYMPHOCYTES # (AUTO) 0.9 X10'3 (1.1-4.8); LYMPHOCYTES % (AUTO) 14.7 % (21-51); MEAN CORPUSCULAR HEMOGLOBIN 29.4 PG (27.0-31.0); MEAN CORPUSCULAR HGB CONC 32.4 g/dL (33.0-36.5); MEAN CORPUSCULAR VOLUME 90.6 FL (78-98); MEAN PLATELET VOLUME 9.5 FL (7.4-10.4); MONOCYTES # (AUTO) 0.4 X10'3 (0-0.9); MONOCYTES % (AUTO) 6.2 % (2-12); NEUTROPHILS # (AUTO) 4.6 X10'3 (1.8-7.7); NEUTROPHILS % (AUTO) 77.3 % (42-75); PLATELET COUNT 100 X10'3 (140-440); RED BLOOD COUNT 4.93 X10'6 (4.20-5.60); RED CELL DISTRIBUTION WIDTH 16.3 % (11.5-14.5); WHITE BLOOD COUNT 5.9 X10'3 (4.5-11.0)
[2023-01-20 15:12] LABS: ALANINE AMINOTRANSFERASE 23 U/L (12-78); ALBUMIN 2.7 G/DL (3.4-5.0); ALBUMIN/GLOBULIN RATIO 0.7 (1.1-1.5); ALKALINE PHOSPHATASE 242 IU/L (46-116); ANION GAP 4 (8-16); ASPARTATE AMINO TRANSFERASE 37 U/L (10-37); BILIRUBIN,TOTAL 0.6 MG/DL (0.1-1.0); BLOOD UREA NITROGEN 37 MG/DL (7-18); BUN/CREATININE RATIO 10.7 (10.0-20.0); CALCIUM 8.5 MG/DL (8.5-10.1); CHLORIDE 99 MMOL/L (99-107); CREATININE 3.45 MG/DL (0.40-0.90); GLUCOSE 157 MG/DL (70-104); POTASSIUM 3.9 MMOL/L (3.5-5.1); SODIUM 137 MMOL/L (135-145); TOTAL CARBON DIOXIDE 34.5 MMOL/L (24-32); TOTAL PROTEIN 6.7 G/DL (6.4-8.2); eCRCL 12 ML/MIN; eGFR 13 ML/MIN
[2023-01-20] MEDS ORDERED: spironolactone 25 MG tablet PO ONE (18:25)
[2023-01-20] MEDS: albuterol 2.5 MG/3 ML nebule NEB ONE ×2 (18:39→18:55)
[2023-01-20 18:48] VITALS: BP 127/46
[2023-01-20 18:56] VITALS: PULSE 86; RESP 18; O2SAT 94
== END 2023-01-20 19:22 | disposition home or self-care (01) ==
LOC: ER 12:20
DX: R18.8 Other ascites (principal); K72.10 Chronic hepatic failure without coma; E11.22 Type 2 diabetes mellitus with diabetic chronic kidney disease; N18.9 Chronic kidney disease, unspecified; E78.00 Pure hypercholesterolemia, unspecified; K21.9 Gastro-esophageal reflux disease without esophagitis; Z88.8 Allergy status to other drugs, medicaments and biological substances; Z91.040 Latex allergy status; Z88.1 Allergy status to other antibiotic agents; Z91.09 Other allergy status, other than to drugs and biological substances; Z79.899 Other long term (current) drug therapy; Z90.49 Acquired absence of other specified parts of digestive tract
CPT/HCPCS: 71046; 80053; 85025; 94640; 94760; 99284

== ENCOUNTER 2023-01-24 06:50 | Day surgery (SDC) | payer MEDICARE, MEDICAID ==
[~2023-01-24] VITALS: Ht 154.9 cm; Wt 70.3 kg
[2023-01-24] VITALS (12 sets, daily range): BP systolic 89–117; BP diastolic 37–67; PULSE 68–78; RESP 12–15; TEMP 98.2; O2SAT 93–99
[2023-01-24] MEDS: albumin 25% 100mL bottle x 1 IV PRN ×2 (08:45→09:10)
== END 2023-01-24 10:25 | disposition home or self-care (01) ==
LOC: SSTAY O 06:50
PROVIDERS: ATTEND Radiology Diagnostic Radiology
DX: J90 Pleural effusion, not elsewhere classified (principal); R18.8 Other ascites; R14.0 Abdominal distension (gaseous); E78.5 Hyperlipidemia, unspecified; K21.9 Gastro-esophageal reflux disease without esophagitis; E11.22 Type 2 diabetes mellitus with diabetic chronic kidney disease; N18.6 End stage renal disease; G89.29 Other chronic pain; F32.A Depression, unspecified; Z99.2 Dependence on renal dialysis; Z90.49 Acquired absence of other specified parts of digestive tract; Z98.890 Other specified postprocedural states; Z96.651 Presence of right artificial knee joint; Z79.899 Other long term (current) drug therapy
CPT/HCPCS: 32555; 49083; C1729; J3490; P9047; A6258; A6449

== ENCOUNTER 2023-02-11 08:03 | Day surgery (SDC) | payer MEDICARE, MEDICAID ==
[~2023-02-11] VITALS: Ht 154.9 cm; Wt 74.8 kg
[2023-02-11] VITALS (8 sets, daily range): BP systolic 88–133; BP diastolic 45–78; PULSE 77–86; RESP 18–20; TEMP 98.2; O2SAT 93–99
[~2023-02-11 08:03] MED LIST changes: -PREG150C46 PO; +PREG150C47 PO
[2023-02-11] MEDS ORDERED: LIDO700A47 TOP (08:25)
[2023-02-11] MEDS ORDERED: CEFD300C21 PO (08:25)
[2023-02-11] MEDS ORDERED: GUAI473S6 PO (08:25)
[2023-02-11] MEDS: albumin 25% 100mL bottle x 1 IV PRN ×2 (09:00→10:33)
== END 2023-02-11 11:30 | disposition home or self-care (01) ==
LOC: SSTAY O 08:03
PROVIDERS: ATTEND Radiology Vascular & Interventional Radiology
DX: R18.8 Other ascites (principal); R14.0 Abdominal distension (gaseous); J90 Pleural effusion, not elsewhere classified; K74.60 Unspecified cirrhosis of liver; K76.6 Portal hypertension; E78.5 Hyperlipidemia, unspecified; E11.22 Type 2 diabetes mellitus with diabetic chronic kidney disease; N18.6 End stage renal disease; K21.9 Gastro-esophageal reflux disease without esophagitis; G89.29 Other chronic pain; F32.A Depression, unspecified; Z99.2 Dependence on renal dialysis; Z98.890 Other specified postprocedural states; Z90.49 Acquired absence of other specified parts of digestive tract; Z96.651 Presence of right artificial knee joint; Z79.899 Other long term (current) drug therapy; Z88.1 Allergy status to other antibiotic agents; Z88.8 Allergy status to other drugs, medicaments and biological substances; Z91.040 Latex allergy status; Z82.3 Family history of stroke; Z82.49 Family history of ischemic heart disease and other diseases of the circulatory system
CPT/HCPCS: 32555; 49083; 82948; C1729; J3490; J7030; P9047; A4615; A6258; A6449

== ENCOUNTER 2023-04-01 11:44 | Emergency (ER) | payer MEDICARE, MEDICAID ==
[~2023-04-01] VITALS: Ht 154.9 cm; Wt 72.7 kg
[~2023-04-01 11:44] MED LIST changes: +CEFD300C21 PO; +GUAI473S6 PO; +LIDO700A47 TOP
[2023-04-01 12:08] VITALS: TEMP 98.3
[2023-04-01 12:54] LABS: BASOPHILS % (AUTO) 0.7 % (0-1); EOSINOPHILS # (AUTO) 0.1 X10'3 (0-0.9); EOSINOPHILS % (AUTO) 1.9 % (0-6); HEMOGLOBIN 13.2 g/dl (12.0-16.0); LYMPHOCYTES # (AUTO) 0.9 X10'3 (1.1-4.8); LYMPHOCYTES % (AUTO) 21.3 % (21-51); MEAN CORPUSCULAR HEMOGLOBIN 30.6 PG (27.0-31.0); MEAN CORPUSCULAR VOLUME 92.6 FL (78-98); MEAN PLATELET VOLUME 10.1 FL (7.4-10.4); MONOCYTES # (AUTO) 0.5 X10'3 (0-0.9); MONOCYTES % (AUTO) 10.8 % (2-12); NEUTROPHILS # (AUTO) 2.8 X10'3 (1.8-7.7); NEUTROPHILS % (AUTO) 65.3 % (42-75); PLATELET COUNT 106 X10'3 (140-440); RED BLOOD COUNT 4.32 X10'6 (4.20-5.60); RED CELL DISTRIBUTION WIDTH 15.3 % (11.5-14.5); WHITE BLOOD COUNT 4.3 X10'3 (4.5-11.0)
[2023-04-01 13:14] LABS: ALANINE AMINOTRANSFERASE 38 U/L (12-78); ALBUMIN 1.8 G/DL (3.4-5.0); ALBUMIN/GLOBULIN RATIO 0.4 (1.1-1.5); ALKALINE PHOSPHATASE 354 IU/L (46-116); ANION GAP 2 (8-16); ASPARTATE AMINO TRANSFERASE 55 U/L (10-37); BILIRUBIN,TOTAL 0.7 MG/DL (0.1-1.0); BLOOD UREA NITROGEN 30 MG/DL (7-18); BUN/CREATININE RATIO 13.8 (10.0-20.0); CHLORIDE 101 MMOL/L (99-107); CREATININE 2.18 MG/DL (0.40-0.90); GLUCOSE 104 MG/DL (70-104); LIPASE 21 U/L (16-77); SODIUM 139 MMOL/L (135-145); TOTAL CARBON DIOXIDE 36.5 MMOL/L (24-32); TOTAL PROTEIN 6.1 G/DL (6.4-8.2); eCRCL 19 ML/MIN; eGFR 23 ML/MIN
--- NOTE | 2023-04-01 13:32 | NUR ---
MIGUELANGEL KEANE AND WORKED UP BY DARIWN ALVAREZ. PT CAME FROM DIALYSIS, WHICH SHE FINISHED. PT IS A/O X4 WITH C/O LUQ PAIN, SPOKE WITH R/T REINA K+.
[2023-04-01 16:49] VITALS: BP 94/49; PULSE 83; RESP 18; O2SAT 97
--- NOTE | 2023-04-01 17:47 | NUR ---
FLUID SAMPLE COLLECTED BY JOHANA VILLARREAL AND SENT TO LAB. PT REPOSITIONS FOR COMFORT.
--- NOTE | 2023-04-01 17:53 | NUR ---
SPOKE WITH PT R/T URINE SAMPLE PT STATES SHE DOES NOT PRODUCE MUCH URINE DURRING THE COURSE OF THE DAY. PA AWARE.
[2023-04-01 18:49] LABS: BFAPPEAR CLOUDY; BFSOURCE PERITONEAL FLD
[2023-04-01 18:50] LABS: BFCOLOR YELLOW; BFVOLUME 60 ML
[2023-04-01 19:23] LABS: GLUCOSE,BODY FLUID 132 MG/DL
[2023-04-01 19:24] LABS: TOTAL PROTEIN,BODY FLUID < 2.0 G/DL
[2023-04-01 20:12] LABS: LYMPHOCYTES,BODY FLUID 86 %; MONOCYTES,BODY FLUID 5 %; NEUTROPHILS,BODY FLUID 9 %
[2023-04-01 20:14] LABS: BF MESOTHELIAL CELLS MODERATE
[2023-04-01 20:15] LABS: BF RBC COUNT 670 /CU MM; BF WBC COUNT 780 /CU MM (0-1000)
--- NOTE | 2023-04-01 23:53 | NUR ---
I have reviewed and agree with all interventions, assessments performed and documented by (ODELL RICHARDS)
== END 2023-04-01 18:59 | disposition left against medical advice (07) ==
LOC: ER 11:45
DX: R10.12 Left upper quadrant pain (principal); R18.8 Other ascites; K74.60 Unspecified cirrhosis of liver; N18.6 End stage renal disease; Z99.2 Dependence on renal dialysis
CPT/HCPCS: 36415; 74176; 80053; 82945; 83690; 84157; 85025; 87070; 87075; 89051; 99284